=== PATIENT | female | born 1990 | race Caucasian/White ===

== ENCOUNTER 2021-03-12 01:16 | Inpatient (IN) ==
[2021-03-12] MEDS ORDERED: OXYTOCIN 30 UNITS/500 ML BAG IV PRN ×2 (02:20→08:16)
[2021-03-12] MEDS ORDERED: BUTORPHANOL TARTRATE 1 MG/ML VIAL IV ONE (02:28)
[2021-03-12] MEDS: LACTATED RINGER'S 1,000 ML IV PRN ×4 (02:58→19:37)
[2021-03-12 03:05] LABS: Hematocrit (blood only) 39.8 % (37-47); Hemoglobin 13.8 g/dL (12.0-16.0); Mean Corpuscular Hemoglobin 30.9 pg (25-34); Mean Corpuscular Hgb Conc 34.7 g/dL (32-36); Mean Platelet Volume 10.2 fL (7.4-10.4); Platelet Count 217 K/uL (130-400); RDW Coefficient of Variation 13.2 % (11.5-14.5); RDW Standard Deviation 42.4 fL (36.4-46.3); Red Blood Count 4.47 M/uL (4.2-5.4); White Blood Count 16.92 K/uL (4.8-10.8)
[2021-03-12] MEDS ORDERED: SODIUM CHLORIDE 0.9% INJ 10 ML VIAL ONE (03:46)
[2021-03-12] MEDS ORDERED: ePHEDrine sulfate 50 MG/ML AMP ONE (03:46)
[2021-03-12] MEDS ORDERED: BUPIVACAINE 0.25% 30 ML VIAL ONE (03:46)
[2021-03-12] MEDS ORDERED: fentaNYL citrate 100 MCG/2 ML VIAL ONE (03:46)
[2021-03-12] MEDS ORDERED: fentaNYL 2MCG/ML ROPIVACAINE 1.25MG/ML 100 ML BAG EPI ONE (03:47)
--- NOTE | 2021-03-12 03:57 | Anesthesiology Consultation ---
Date of Service March 12, 2021 Assessment & Plan (1) Encounter for pre-operative examination: Chart Review Chart Review: Acceptable Risk for Labor Epidural History Height/Weight Height: 5 ft 1 in Weight: 77.111 kg Allergies Allergy/AdvReac Type Severity Reaction Status Date / Time No Known Allergies Allergy Verified 02/28/21 19:33 Medications Home Medications Medication Instructions Recorded Confirmed Last Taken fluoxetine 20 mg capsule (Prozac) 20 mg PO DAILY 02/28/21 02/28/21 02/28/21 08:00 loratadine 10 mg tablet (Claritin) 10 mg PO DAILY 02/28/21 02/28/21 02/28/21 08:00 prenat.vits,maria guadalupe,[id number] 1 tab PO DAILY 02/28/21 02/28/21 02/27/21 20:00 Active Medications Generic Name Dose Route Start Last Admin Trade Name Freq PRN Reason Stop Dose Admin Lactated Ringer's 1,000 mls @ 125 mls/hr 03/12/21 02:20 03/12/21 02:58 Lr IV 03/14/21 02:19 999 mls/hr .Q8H PRN Administration L&D Protocol Protocol Past Medical History Medical History No significant active problems Social History Smoking Status: Current every day smoker tobacco type: cigarettes Do You Dip or Chew Tobacco: No Hx Alcohol Use: No Hx Substance Use: No substance use type: does not use Physical Exam Vital Signs Last Vital Signs Temp 36.5 C 03/12/21 01:42 EST Pulse 83 03/12/21 03:52 Resp 18 03/12/21 01:42 EST BP 127/70 03/12/21 03:37 Pulse Ox 100 03/12/21 03:52 Testing Laboratory Results 03/12/21 02:56
[2021-03-12] MEDS ORDERED: ePHEDrine sulfate 50 MG/ML AMP IV PRN ×2 (04:30→20:50)
[2021-03-12] MEDS ORDERED: ONDANSETRON INJ 2 MG/ML 2 ML VIAL IV PRN ×2 (04:30→20:50)
[2021-03-12] MEDS ORDERED: fentaNYL 2MCG/ML ROPIVACAINE 1.25MG/ML 100 ML BAG EPI PRN (04:30)
[2021-03-12] MEDS ORDERED: NALOXONE HCL 0.4 MG/1 ML VIAL/CARP IV PRN ×2 (04:30→20:50)
[2021-03-12] MEDS ORDERED: NALOXONE HCL 1 MG in SODIUM CHLORIDE 0.9% 1000ML 1,000 ML IV PRN ×2 (04:30→20:50)
[2021-03-12] MEDS ORDERED: cefOXitin 2,000 MG in DEXTROSE 5% 50 ML IV SCH (19:45)
[2021-03-12] MEDS ORDERED: CITRIC ACID/SODIUM CITRATE 15 ML UDC PO SCH (19:45)
--- NOTE | 2021-03-12 19:51 | History and Physical Report ---
DATE OF NOTE: 03/12/2021. CHIEF COMPLAINT: Arrest of labor. HISTORY OF PRESENT ILLNESS: The patient is a 30-year-old 1, para 0, due date 03/12/2021. Jimmie cunningham had an uneventful course, had her membranes stripped in the office to induce labor, went i nto spontaneous labor. Came in at about 3 in the morning and 5 cm dilated with contractions every 2- 3 minutes. She was given IV Stadol and then she received epidural anesthesia from which she got good pain relief. She had a good labor pattern and was augmented with IV Pitocin. She went to full dilat ation, pushed for 2-1/2 hours and basically was unable to get the head into the mid pelvis. She had a mid pelvis transverse arrest and was given a diagnosis of cephalopelvic disproportion scheduled for primary section. PAST MEDICAL HISTORY: No known drug allergies. PAST SURGICAL HISTORY: She had wisdom teeth removed. MEDICAL HISTORY: No history of rheumatic fever, heart disease, heart murmur, diabetes, tuberculosis. SOCIAL HISTORY: No smoking, no alcohol intake. Works from home. FAMILY HISTORY: Mom is 51. Dad's 52, both in good health. Half-brother and half-sister in good hea lth. REVIEW OF SYSTEMS: HEAD: No symptoms of frequent or severe headaches. EYES: No symptoms of blurred vision, double vision. EARS: No symptoms of frequent ear infection or difficulty hearing. PHYSICAL EXAMINATION: GENERAL: Well-developed, well-nourished 30-year-old white female. Alert, oriented x3, and cooperati ve in no acute distress, appeared her stated age. EYES: Conjunctivae are pink. Sclerae white, no evidence of jaundice. ENT: Ears had normal light reflex bilaterally. Nose had normal mucosa. Septum is midline. There w ere no polyps. THROAT: No erythema or evidence of infection. Teeth are in good state of repair. HEAD: Normocephalic, normal distribution of hair. NECK: Supple. Trachea midline. Thyroid is not enlarged. There is no adenopathy appreciated. Both carotids are of good intensity. CHEST: Clear to auscultation and percussion. No wheezes, rales or rhonchi appreciated. BREAST: Normal. HEART: Had regular rhythm LUNGS: Clear to auscultation and percussion. ABDOMEN: Revealed a vertex presentation and abdominal size suggested a weight of 8 pounds. There wa s no CVA tenderness, no calf tenderness. PELVIC: Large amount of molding, occiput transverse position, -2 station. IMPRESSION OF THIS CASE: Status post removal of wisdom teeth and arrest of labor secondary cephalope lvic disproportion. Job ID: [id number]
[2021-03-12] MEDS ORDERED: MoRPHine SULFATE PF 1 MG/ML 10 ML AMP/VIAL ONE (20:20)
[2021-03-12] MEDS ORDERED: PROPOFOL IV EMULSION 10 MG/ML 20 ML VIAL IV ONE (20:23)
[2021-03-12] MEDS ORDERED: ONDANSETRON INJ 2 MG/ML 2 ML VIAL ONE (20:23)
[2021-03-12] MEDS ORDERED: METOCLOPRAMIDE HCL INJ 5 MG/ML 2 ML VIAL ONE (20:23)
[2021-03-12] MEDS ORDERED: OXYTOCIN 10 UNITS/ML VIAL ONE (20:23)
[2021-03-12] MEDS ORDERED: LIDOCAINE 2%/EPINEPHRINE 1:200,000 20 ML SDV ONE (20:28)
[2021-03-12] MEDS ORDERED: METHYLERGONOVINE MALEATE 0.2 MG/ML AMP ONE (20:40)
[2021-03-12] MEDS ORDERED: diphenhydrAMINE 50 MG/ML VIAL IV PRN (20:50)
[2021-03-12] MEDS ORDERED: PROMETHAZINE HCL 12.5 MG in SODIUM CHLORIDE 0.9% 50 ML IV PRN (20:50)
[2021-03-12] MEDS ORDERED: NALOXONE HCL 0.08 MG in SYRINGE 1.8 ML IV PRN (20:50)
[2021-03-12] MEDS ORDERED: NALBUPHINE HCL INJ 10 MG/ML AMP IV PRN (20:50)
[2021-03-12] MEDS ORDERED: MoRPHine SULFATE 2 MG/ML CARP IV PRN (20:50)
[2021-03-12] MEDS ORDERED: MoRPHine SULFATE PF 1 MG/ML 10 ML AMP/VIAL EPI ONE (20:50)
[2021-03-12] MEDS ORDERED: LACTATED RINGER'S 500 ML IV PRN (20:50)
[2021-03-12] MEDS ORDERED: NO NARCOTICS OR SEDATIVES SCH (21:00)
[2021-03-12] MEDS ORDERED: SODIUM CHLORIDE 0.9% 1000ML 1,000 ML IV SCH (21:00)
[2021-03-12] MEDS ORDERED: DC INTRASPINAL MORPHINE SCH (21:00)
--- NOTE | 2021-03-12 21:13 | Anesthesia Procedure Note ---
Date of Service March 12, 2021 Anesthesia Post Epidural Note Vital Signs Vital Signs: Temp Pulse Resp BP Pulse Ox 37 C 92 H 22 136/78 99 03/12/21 18:30 03/12/21 20:01 03/12/21 18:45 03/12/21 20:01 03/12/21 19:32 Pain Intensity Lower Back: Pain Intensity: 3 Notes Mental Status: alert / awake / arousable and participated in evaluation Nausea / Vomiting: adequately controlled Pain: adequately controlled Airway Patency, RR, SpO2: stable & adequate BP & HR: stable & adequate Hydration State: stable & adequate Neuraxial Anesthesia: was administered and sensory block is resolving Anesthetic Complications: no major complications apparent Epidural: Removed without complications and With tip intact
[2021-03-12] MEDS ORDERED: MAGNESIUM HYDROXIDE SUSP 30 ML UDC PO PRN (21:14)
[2021-03-12] MEDS ORDERED: DIPHTHERIA/TETANUS/PERTUSSIS 0.5 ML SYR/VIAL IM ONE (21:14)
[2021-03-12] MEDS ORDERED: SENNA 8.6 MG TAB PO PRN (21:14)
[2021-03-12] MEDS ORDERED: HYDROCORTISONE ACETATE 25 MG SUPP PR PRN (21:14)
[2021-03-12] MEDS ORDERED: SUPERCREAM 0.870% 15 GM JAR EXT PRN (21:14)
[2021-03-12] MEDS ORDERED: BENZOCAINE 20% AER SPR 82.5 GM CAN EXT PRN (21:14)
--- NOTE | 2021-03-12 21:14 | Post Operative Brief Note ---
Immediate Post Op Note v1 Date of Surgery March 12, 2021 Pre & Post Diagnosis Operation Date: 03/12/21 20:00 Pre-Op Diagnosis: 40 week term in Labor CPD Failure to descend Post-Op Diagnosis: same as above I identified the patient and participated in the time-out.: Yes Procedure Operation Date: 03/12/21 20:00 Actual Procedures p Section in LD(Not Applicable) - Clayton Uriostegui MD Surgeon Clayton Uriostegui MD Electrical Assistant Dr Pugh Estimated Blood Loss 600 Findings Consistent with Post-Op Diagnosis Drains Castellon Catheter (draining light bloody urine during the procedure) Anesthesia Type L&D Only Epidural Exists Complications none
[2021-03-12] MEDS ORDERED: LACTATED RINGER'S 1,000 ML IV SCH (21:15)
[2021-03-12] MEDS ORDERED: OXYTOCIN 20 UNITS in LACTATED RINGER'S 1,000 ML IV SCH (23:45)
[2021-03-12] MEDS: KETOROLAC 30 MG/ML VIAL IV PRN (23:49)
--- NOTE | 2021-03-13 06:46 | Anesthesiology Progress Note ---
Date of Service March 13, 2021 Anesthesia Post Procedure Vital Signs Vital Signs: Temp Pulse Pulse Resp BP BP Pulse Ox 03/13/21 06:00 24 97 03/13/21 05:00 22 96 03/13/21 04:00 36.7 C 94 H 20 112/68 96 03/13/21 02:45 81 20 112/75 95 03/13/21 01:45 93 H 94 H 105/69 94 03/13/21 00:45 20 96 03/13/21 00:40 90 20 131/73 96 03/12/21 23:45 37.1 C 88 20 118/77 97 03/12/21 23:29 85 125/60 03/12/21 23:28 86 97 03/12/21 23:25 18 03/12/21 23:23 85 96 03/12/21 23:19 88 122/58 L 03/12/21 23:18 86 97 03/12/21 23:13 89 97 03/12/21 23:09 82 122/59 L 03/12/21 23:08 85 97 03/12/21 23:03 84 97 03/12/21 22:59 81 121/66 03/12/21 22:58 83 98 03/12/21 22:55 18 03/12/21 22:53 81 99 03/12/21 22:49 82 119/63 03/12/21 22:48 85 99 03/12/21 22:43 92 H 99 03/12/21 22:39 85 122/57 L 03/12/21 22:38 89 99 03/12/21 22:33 87 98 03/12/21 22:29 83 115/61 03/12/21 22:28 86 99 03/12/21 22:25 37.2 C 18 03/12/21 22:23 97 H 99 03/12/21 22:20 88 129/59 L 03/12/21 22:18 89 99 03/12/21 22:15 18 03/12/21 22:12 82 96 03/12/21 22:10 18 03/12/21 22:07 91 H 96 03/12/21 22:05 18 03/12/21 22:03 80 94 03/12/21 22:02 81 95 03/12/21 21:59 82 109/56 L 03/12/21 21:57 85 96 03/12/21 21:55 18 03/12/21 21:52 85 96 03/12/21 21:49 85 123/58 L 03/12/21 21:47 89 98 03/12/21 21:45 18 03/12/21 21:43 93 H 93 03/12/21 21:42 86 96 03/12/21 21:38 82 116/59 L 03/12/21 21:37 83 96 03/12/21 21:35 18 03/12/21 21:33 84 118/60 03/12/21 21:32 89 98 03/12/21 21:27 90 97 03/12/21 21:25 36.8 C 18 03/12/21 21:23 83 118/56 L 03/12/21 21:22 86 132/58 L 98 03/12/21 21:17 94 H 98 03/12/21 20:01 92 H 136/78 03/12/21 19:55 90 136/84 03/12/21 19:44 92 H 129/78 03/12/21 19:32 106 H 99 03/12/21 19:27 113 H 100 03/12/21 19:23 98 H 92 03/12/21 19:22 96 H 99 03/12/21 19:17 96 H 100 03/12/21 19:14 91 H 149/66 H 03/12/21 19:12 103 H 98 03/12/21 19:07 91 H 100 03/12/21 19:02 97 H 100 03/12/21 19:00 83 131/85 03/12/21 18:57 97 H 100 03/12/21 18:52 90 100 03/12/21 18:47 92 H 100 03/12/21 18:45 97 H 22 126/87 03/12/21 18:44 105 H 91 03/12/21 18:42 89 100 03/12/21 18:37 93 H 99 03/12/21 18:32 95 H 100 03/12/21 18:30 37 C 93 H 20 143/65 H 03/12/21 18:27 97 H 100 03/12/21 18:22 95 H 100 03/12/21 18:17 93 H 100 03/12/21 18:16 95 H 144/64 H 03/12/21 18:15 90 191/123 H 03/12/21 18:12 95 H 100 03/12/21 18:09 98 H 87 L 03/12/21 18:07 87 100 03/12/21 18:03 97 H 88 L 03/12/21 18:02 95 H 100 03/12/21 17:59 96 H 137/65 03/12/21 17:57 106 H 100 03/12/21 17:51 108 H 100 03/12/21 17:49 100 H 86 L 03/12/21 17:46 97 H 100 03/12/21 17:43 129 H 146/81 H 03/12/21 17:41 98 H 100 03/12/21 17:40 93 H 83 L 03/12/21 17:35 95 H 100 03/12/21 17:33 101 H 86 L 03/12/21 17:30 92 H 100 03/12/21 17:25 92 H 100 03/12/21 17:20 86 99 03/12/21 17:15 93 H 99 03/12/21 17:10 95 H 99 03/12/21 17:06 105 H 90 03/12/21 17:05 97 H 100 03/12/21 17:00 105 H 98 03/12/21 16:59 99 H 140/71 03/12/21 16:55 94 H 100 03/12/21 16:50 101 H 99 03/12/21 16:45 95 H 97 03/12/21 16:44 96 H 136/81 03/12/21 16:40 98 H 99 03/12/21 16:35 94 H 99 03/12/21 16:30 104 H 100 03/12/21 16:28 37.2 C 93 H 20 135/84 03/12/21 16:25 99 H 99 03/12/21 16:20 106 H 100 03/12/21 16:15 101 H 100 03/12/21 16:14 93 H 135/87 03/12/21 16:10 91 H 100 03/12/21 16:05 115 H 100 03/12/21 16:00 101 H 100 03/12/21 15:59 100 H 137/87 03/12/21 15:55 97 H 100 03/12/21 15:50 97 H 100 03/12/21 15:45 109 H 97 03/12/21 15:43 92 H 131/73 03/12/21 15:40 94 H 99 03/12/21 15:35 91 H 100 03/12/21 15:30 87 100 03/12/21 15:29 93 H 127/65 03/12/21 15:25 91 H 100 03/12/21 15:20 88 100 03/12/21 15:15 99 H 100 03/12/21 15:13 101 H 146/82 H 03/12/21 15:10 101 H 100 03/12/21 15:05 96 H 100 03/12/21 15:00 37.2 C 128 H 20 132/58 L 100 03/12/21 14:55 90 100 03/12/21 14:50 89 100 03/12/21 14:45 97 H 132/90 99 03/12/21 14:40 98 H 97 03/12/21 14:35 103 H 97 03/12/21 14:30 104 H 97 03/12/21 14:29 98 H 129/78 03/12/21 14:25 98 H 98 03/12/21 14:20 94 H 97 03/12/21 14:15 94 H 97 03/12/21 14:13 98 H 127/75 03/12/21 14:10 99 H 97 03/12/21 14:05 99 H 98 03/12/21 14:00 93 H 99 03/12/21 13:58 37.1 C 92 H 20 128/78 03/12/21 13:55 86 99 03/12/21 13:50 87 100 03/12/21 13:45 90 100 03/12/21 13:44 93 H 138/72 03/12/21 13:40 87 100 03/12/21 13:35 99 H 100 03/12/21 13:30 113 H 100 03/12/21 13:29 141 H 149/79 H 03/12/21 13:25 90 100 03/12/21 13:20 96 H 100 03/12/21 13:15 91 H 99 03/12/21 13:14 81 120/82 03/12/21 13:10 82 100 03/12/21 13:05 83 100 03/12/21 13:00 84 98 03/12/21 12:59 36.9 C 81 20 136/73 03/12/21 12:55 83 98 03/12/21 12:50 86 99 03/12/21 12:45 80 140/73 100 03/12/21 12:40 83 100 03/12/21 12:35 84 100 03/12/21 12:30 85 100 03/12/21 12:29 85 138/85 03/12/21 12:25 84 100 03/12/21 12:21 82 130/89 03/12/21 12:20 80 100 03/12/21 12:15 80 98 03/12/21 12:10 85 98 03/12/21 12:05 85 98 03/12/21 12:00 81 99 03/12/21 11:58 83 129/80 03/12/21 11:55 81 100 03/12/21 11:50 86 100 03/12/21 11:45 83 100 03/12/21 11:44 82 129/83 03/12/21 11:40 84 100 03/12/21 11:35 85 100 03/12/21 11:30 84 100 03/12/21 11:29 85 133/84 03/12/21 11:25 90 99 03/12/21 11:20 86 99 03/12/21 11:15 84 100 03/12/21 11:13 37.2 C 88 20 131/84 03/12/21 11:10 84 100 03/12/21 11:05 105 H 99 03/12/21 11:00 81 99 03/12/21 10:59 87 126/84 03/12/21 10:55 85 100 03/12/21 10:50 95 H 100 03/12/21 10:45 82 100 03/12/21 10:43 84 133/77 03/12/21 10:40 85 100 03/12/21 10:35 87 100 03/12/21 10:30 85 100 03/12/21 10:29 85 132/83 03/12/21 10:25 85 100 03/12/21 10:20 85 100 03/12/21 10:15 90 100 03/12/21 10:13 36.7 C 87 20 127/78 03/12/21 10:10 88 100 03/12/21 10:05 98 H 100 03/12/21 10:00 93 H 100 03/12/21 09:58 82 128/73 03/12/21 09:55 85 100 03/12/21 09:53 95 H 87 L 03/12/21 09:48 84 98 03/12/21 09:44 86 142/80 H 03/12/21 09:43 88 97 03/12/21 09:38 82 96 03/12/21 09:33 83 96 03/12/21 09:28 81 133/77 96 03/12/21 09:23 83 96 03/12/21 09:18 82 95 03/12/21 09:14 80 130/78 03/12/21 09:13 82 96 03/12/21 09:08 84 96 03/12/21 09:03 82 96 03/12/21 08:58 84 132/71 96 03/12/21 08:53 82 96 03/12/21 08:48 84 96 03/12/21 08:43 82 130/77 97 03/12/21 08:38 82 98 03/12/21 08:33 80 97 03/12/21 08:28 85 132/82 98 03/12/21 08:23 88 97 03/12/21 08:18 80 97 03/12/21 08:15 88 130/84 03/12/21 08:14 90 90 03/12/21 08:13 88 100 03/12/21 08:09 119 H 91 03/12/21 08:08 108 H 97 03/12/21 08:03 82 97 03/12/21 07:59 80 130/76 03/12/21 07:58 83 97 03/12/21 07:53 81 97 03/12/21 07:48 81 97 03/12/21 07:44 76 129/74 03/12/21 07:43 83 97 03/12/21 07:38 82 99 03/12/21 07:33 81 97 03/12/21 07:29 36.5 C 79 20 130/82 03/12/21 07:28 79 98 03/12/21 07:23 87 97 03/12/21 07:18 88 99 03/12/21 07:17 88 90 03/12/21 07:13 90 132/87 100 03/12/21 07:08 85 100 03/12/21 07:03 80 100 03/12/21 06:59 81 130/74 03/12/21 06:58 82 100 03/12/21 06:53 80 100 03/12/21 06:48 81 100 Pain Intensity Lower Back: Pain Intensity: 3 Lower Abdomen: Pain Intensity: 6 Transfer of Care Handoff Completed per policy Notes Mental Status: alert / awake / arousable Patient Amnestic to Procedure: Yes Nausea / Vomiting: adequately controlled Pain: adequately controlled Airway Patency, RR, SpO2: stable & adequate BP & HR: stable & adequate Hydration State: stable & adequate Anesthetic Complications: no major complications apparent
[2021-03-13 06:51] LABS: Basophils # (auto) 0.02 K/uL (0-0.2); Basophils % (auto) 0.1 %; Eosinophils # (auto) 0.11 K/uL (0-0.5); Eosinophils % (auto) 0.5 %; Hematocrit (blood only) 32.3 % (37-47); Hemoglobin 11.2 g/dL (12.0-16.0); Immature Granulocytes # (auto) 0.05 K/uL (0.00-0.02); Immature Granulocytes % (auto) 0.2 %; Lymphocytes # (auto) 1.34 K/uL (1.2-3.4); Lymphocytes % (auto) 6.6 %; Mean Corpuscular Hemoglobin 30.9 pg (25-34); Mean Corpuscular Hgb Conc 34.7 g/dL (32-36); Mean Platelet Volume 10.2 fL (7.4-10.4); Monocytes # (auto) 1.66 K/uL (0.11-0.59); Monocytes % (auto) 8.2 %; Neutrophils # (auto) 17.16 K/uL (1.4-6.5); Neutrophils % (auto) 84.4 %; Platelet Count 180 K/uL (130-400); RDW Coefficient of Variation 13.2 % (11.5-14.5); RDW Standard Deviation 43.3 fL (36.4-46.3); Red Blood Count 3.63 M/uL (4.2-5.4); White Blood Count 20.34 K/uL (4.8-10.8)
[2021-03-13] MEDS: KETOROLAC 30 MG/ML VIAL IV PRN ×2 (07:10→13:20)
[2021-03-13] MEDS: DOCUSATE SODIUM 100 MG CAP PO SCH ×2 (07:52→21:23)
[2021-03-13] MEDS: FERROUS SULFATE 325 MG TAB PO SCH (07:53)
[2021-03-13] MEDS: PRENATAL VITAMIN 1 TAB PO SCH (07:53)
[2021-03-13] MEDS: SIMETHICONE 80 MG CHEW PO SCH ×4 (07:54→21:23)
--- NOTE | 2021-03-13 08:58 | Operative Report (OR) ---
DATE OF PROCEDURE: 03/12/2021 PROCEDURE: Primary section. INDICATIONS FOR SURGERY: Arrest of labor. PREOPERATIVE DIAGNOSES: Cephalopelvic disproportion, term . POSTOPERATIVE DIAGNOSES: Cephalopelvic disproportion, term , delivered live infant. SURGEON: Jane Uriostegui MD. HORTICULTURE WORKER: Sanjay Pugh MD. ESTIMATED BLOOD LOSS: 600 mL. ANESTHESIA: Epidural. OPERATIVE FINDINGS AND PROCEDURE: The patient was brought to the OR table, correctly identified by a rmband and conversation. Compression stockings were applied. Castellon catheter was inserted asepticall y in the bladder, connected to gravity drainage. The epidural was topped off. Lower abdomen was pain maryse with an alcohol based sterilizing solution, it was allowed to dry for 3 minutes and draped in the usual sterile fashion. Following this, the adequacy of the anesthesia was checked and found to be g ood. A Pfannenstiel incision was made and carried down to the anterior fascia by sharp dissection. Hemost asis was secured by electrocauterization. Fascia was incised transversely the underlying muscle by blunt and sharp dissection. Recti muscles were in the midline. The bladder was high with the head low in the pelvis. An incision was made above the vesicouterine fold. Bladder wa s undermined bluntly, pushed out of the operative field. Lower uterine segment was scored with a kni fe and entered with the scissors. Some mildly stained amniotic fluid was noted. The dampener operator's hand was inserted into the pelvis and the head was delivered without difficulty. Body was then delivered without difficulty. Cord was stripped, cut and attended to by the excel expert who was scrubbed and present at the time of delivery. Cord blood was taken. Placenta was removed manually. Uterus, tubes, and ovaries were brought out through the incision. Uterine cavity was cleansed with a clean sponge. Uterus was injected with 10 mL of Pitocin. The lower uterine segment was identified w ith 4 ring forceps and a heavy duty chromic was used to approximate the muscular layer and create goo d hemostasis. After the approximation of the uterine muscular layer, the fascial layer was approxima maryse over this second layer with a heavy Vicryl and the fascial layer was approximated and covered the muscular layer. Hemostasis was excellent. The peritoneal edges were restored with a 3-0 chromic an d this restored the integrity of the vesicouterine fold. Pelvis was cleansed of all blood clots and debris. Uterus, tubes, and ovaries were inspected and fou nd to be normal, reinserted into the abdominal cavity. Careful anatomical approximation of the anter ior abdominal wall was performed. The perineum was closed with a mattress suture of chromic catgut. Recti muscles were approximated with interrupted [id number] suture chromic catgut. Fascia was closed with continuous interlocking suture of Vicryl on each side and tied in the midline. Subcutane ous was approximated with a running plain and skin edges were approximated with staple clips. Job ID: [id number]
[2021-03-13] MEDS ORDERED: ONDANSETRON INJ 2 MG/ML 2 ML VIAL IV PRN (14:50)
[2021-03-13] MEDS ORDERED: diphenhydrAMINE Capsule 25 MG CAP PO PRN (14:50)
[2021-03-13] MEDS ORDERED: ZOLPIDEM TARTRATE 5 MG TAB PO PRN (14:50)
[2021-03-13] MEDS ORDERED: KETOROLAC 30 MG/ML VIAL IV PRN (14:50)
[2021-03-13] MEDS ORDERED: PROMETHAZINE HCL 25 MG in SODIUM CHLORIDE 0.9% 50 ML IV PRN (14:50)
[2021-03-13] MEDS ORDERED: diphenhydrAMINE 50 MG/ML VIAL IV PRN (14:50)
[2021-03-13] MEDS ORDERED: MEPERIDINE HCL 50 MG/ML CARP IV PRN (14:50)
--- NOTE | 2021-03-13 17:22 | Obstetrical Progress Note ---
Date of Service March 13, 2021 Assessment & Plan Admission and Anticipated Discharge Date Admission Date: March 12, 2021 Subjective abdomen soft and non tender ambulating well incision is clean and dry passing flatus no calf tenderness vaginal bleeding scant hgb 11.2 Results & Data ([facility]) Vital Signs (Past 12 Hours) Vital Signs Temp Pulse Resp BP Pulse Ox 03/13/21 12:14 37.3 C 98 H 17 107/71 97 03/13/21 12:00 22 99 03/13/21 11:00 18 98 03/13/21 10:00 19 99 03/13/21 09:00 21 100 03/13/21 07:55 36.8 C 88 21 108/72 99 03/13/21 06:00 24 97
[2021-03-13] MEDS: IBUPROFEN 600 MG TAB PO PRN ×2 (18:32→22:48)
[2021-03-13] MEDS: oxyCODONE/ACETAMINOPHEN 5mg/325mg TAB PO PRN ×2 (18:32→22:48)
[2021-03-13] MEDS ORDERED: bisacodyL 5 MG TABEC PO SCH (20:00)
[2021-03-14] MEDS: IBUPROFEN 600 MG TAB PO PRN ×2 (04:27→07:51)
[2021-03-14] MEDS: oxyCODONE/ACETAMINOPHEN 5mg/325mg TAB PO PRN ×2 (04:27→07:52)
[2021-03-14 06:11] LABS: Hematocrit (blood only) 28.3 % (37-47); Hemoglobin 9.7 g/dL (12.0-16.0)
[2021-03-14] MEDS: DOCUSATE SODIUM 100 MG CAP PO SCH (07:51)
[2021-03-14] MEDS: PRENATAL VITAMIN 1 TAB PO SCH (07:51)
[2021-03-14] MEDS: FERROUS SULFATE 325 MG TAB PO SCH (07:51)
[2021-03-14] MEDS: SIMETHICONE 80 MG CHEW PO SCH (07:51)
--- NOTE | 2021-03-14 08:27 | Obstetrical Progress Note ---
Date of Service March 14, 2021 Assessment & Plan Admission and Anticipated Discharge Date Admission Date: March 12, 2021 Subjective abdomen soft and non tender incision is clean and dry no calf tenderness ambulating well vaginal bleeding scant hgb 9.7 patient requests discharge Results & Data ([facility]) Vital Signs (Past 12 Hours) Vital Signs Temp Pulse Resp BP Pulse Ox 03/13/21 23:00 36.4 C L 93 H 20 121/75 98
--- NOTE | 2021-03-14 12:23 | Discharge Summary (DS) ---
Mrs. Melgar was followed in our office for care and delivery. At this point, she is a gr avida 1, para 1. She had an uneventful course. Her membranes were stripped in the office s o that she would go into labor. She came in active labor on her due date. She was 5 cm on admission and about an hour after admission she was given epidural for pain control. Following this, she was augmented with IV Pitocin. She basically went to full dilatation. She pushed for about 3 hours and then had a transverse mid pelvic arrest secondary to cephalopelvic disproportion. She underwent prim joss low segment section. Estimated blood loss at that time was 600 mL. She did well postop eratively. She did receive prophylactic antibiotics. Her preoperative hemoglobin was 13.8. Postope ratively, hemoglobin dropped to 9.7. At the time of discharge, she was ambulating well, eating well. She was afebrile. Vaginal bleeding was minimal. She was given the usual instructions to call the office if she had a temperature over 100, call if she has any heavy bleeding, and to return in the of [facility] in one week for removal of nupur. Job ID: [id number]
[2021-03-14] MEDS ORDERED: bisacodyL 10 MG SUPP PR PRN (21:14)
== END 2021-03-14 11:20 | disposition home or self-care (01) | DRG 788 ==
LOC: OPB 01:16 → 4S1 01:22 → 4S2 03-13 00:24

== ENCOUNTER 2023-01-02 05:28 | Inpatient (IN) ==
--- NOTE | 2022-12-26 07:36 | History & Physical Report ---
Date of Service December 26, 2022 Assessment & Plan (1) Cephalopelvic disproportion due to generally contracted pelvis: Plan Plan is a repeat section. History of Present Illness Chief Complaint: Intrauterine at 39+ weeks gestation. Repeat section. Primary Care Provider: Rekha Raman PA-C Patient is a 32-year-old 2 para 1. She is in good general health. She is on Prozac 20 mg for anxiety and depression. has been well dated with a first trimester ultrasound. Her due date is 01/08/2003. Her first resulted in a section in 2020 at the time of delivery she was fully dilated and pushed for over 3 hours. The head did not descend into the pelvis. She was given a diagnosis of cephalopelvic disproportion. She delivered a male 7 pounds 8 ounces at that time. She is presently being scheduled for repeat section. With a diagnosis of cephalopelvic disproportion. Allergies Allergy/AdvReac Type Severity Reaction Status Date / Time No Known Allergies Allergy Verified 06/08/22 15:11 Home Medications Medication Instructions Recorded Confirmed Type fluoxetine 20 mg capsule (Prozac) 20 mg PO DAILY 02/28/21 03/12/21 History prenat.vits,maria guadalupe,[id number] 1 tab PO DAILY 02/28/21 03/12/21 History ibuprofen 200 mg tablet (Motrin IB) 600 mg PO Q6H PRN pain #60 tabs 03/14/21 Rx oxycodone-acetaminophen 5 mg-325 1 tab PO Q6H PRN pain #40 tabs 03/14/21 Rx mg tablet (Percocet) Past Med/Surg History Medical History Asthma No significant active problems Surgical History [place] teeth removed Social History Smoking Status: Current every day smoker Tobacco Type: Cigarettes Second Hand Exposure: No; Do You Dip or Chew Tobacco: No; Hx Alcohol Use: No Hx Substance Use: No Preferred Language: Greek Communication Ability: Effective Vocational Rehabilitation Supervisor Required: No Beliefs That Will Affect Care: None marital status: Single Current Living Situation: Family and Significant Other Current Living Situation Comment: FOB and step son Feels Safe at Home: Yes Assistive Devices: Glasses Physical Exam Physical Exam: Patient is a well-developed well-nourished 32-year-old white female alert oriented x3 in no acute distress. Trachea is midline there is no cervical adenopathy. Teeth are in a good state of repair. Normal light reflex bilaterally. Heart had a regular rhythm S1 and S2 were normal. Lungs were clear to auscultation and percussion. Abdomen was soft and nontender. Abdominal size was consistent with a term size fetus. There was a well-healed Pfannenstiel incisional scar. There was no CVA tenderness. No calf tenderness. Pelvic exam revealed a vertex presentation. The vertex was floating. Cervix was posterior firm and closed. Results & Data Results & Data Diagnostic Findings Cephalopelvic disproportion. Intrauterine at 39 weeks gestation.
--- NOTE | 2022-12-26 10:36 | Anesthesiology Consultation ---
Date of Service December 26, 2022 Assessment & Plan (1) Encounter for pre-operative examination: Infectious disease screening: Per assessment on 12/26/22: No known infectious disease contacts or current infectious disease symptoms. Chart Review Chart Review: data entry analyst initiated History Surgery Operation Date: 01/02/23 07:30 Proposed Procedures p Repeat Section - Clayton Uriostegui MD Height/Weight Height: 5 ft 1 in Weight: 87.997 kg Allergies Allergy/AdvReac Type Severity Reaction Status Date / Time No Known Allergies Allergy Verified 12/26/22 09:34 Medications Home Medications Medication Instructions Recorded Confirmed Last Taken fluoxetine 20 mg capsule (Prozac) 20 mg PO QAM 02/28/21 12/26/22 03/11/21 08:00 prenat.vits,maria guadalupe,[id number] 1 tab PO HS 02/28/21 12/26/22 03/11/21 08:00 Past Medical History Medical History Anxiety Asthma "since outgrown" No recent issues Depression Past Family History Family History Other No family history of adverse response to anesthesia Past Surgical History Surgical History History of anesthesia reaction Emergency c/s (2020, [facility]) after labor for about 2.5 - 3 hours, patient reports having "shakes" for hours post-op. No major complications per post-op anesthesia progress note. No significant post-op issues noted in discharge summary. History of section [place] teeth removed Social History Smoking Status: Former smoker tobacco type: cigarettes Do You Dip or Chew Tobacco: No Smoking End Date: Hx Alcohol Use: No Hx Substance Use: No substance use type: does not use Lab Results Anesthesia Preop Results Results Anesthesia Widget: WBC 10.32 K/ul (4.8-10.8) 12/21/22 Hgb 13.3 g/dl (12.0-16.0) 12/21/22 Hct 38.9 % (37.0-47.0) 12/21/22 Plt 162 K/uL (130-400) 12/21/22 Na 137 mmol/L (136-145) 12/21/22 K 3.7 mmol/L (3.5-5.1) 12/21/22 Cl 108 mmol/L (98-107) H 12/21/22 CO2 22 mmol/L (21-32) 12/21/22 BUN 6 mg/dl (6-23) 12/21/22 Creat 0.40 mg/dl (0.6-1.2) L 12/21/22 Glucose Level 108 mg/dl (70-99(Fasting)) H 12/21/22 PT 9.8 Seconds (9.0-12.0) 12/21/22 PTT 26.1 Seconds (21.0-31.0) 12/21/22 INR 0.9 (0.9-1.1) 12/21/22 Blood Type A Positive 12/21/22 Antibody Screen NEGATIVE 12/21/22
[~2023-01-02 05:28] MED LIST: LACTATED RINGER'S 1,000 ML IV SCH
[2023-01-02] MEDS ORDERED: CITRIC ACID/SODIUM CITRATE 15 ML UDC PO SCH (06:00)
[2023-01-02] MEDS ORDERED: ceFAZolin 2000MG 2,000 MG/15 ML SYR IV SCH (06:00)
[2023-01-02 06:05] LABS: Basophils # (auto) 0.03 K/uL (0.00-0.20); Basophils % (auto) 0.3 %; Eosinophils # (auto) 0.12 K/uL (0.00-0.50); Eosinophils % (auto) 1.2 %; Hematocrit (blood only) 39.5 % (37.0-47.0); Hemoglobin 13.6 g/dl (12.0-16.0); Immature Granulocytes # (auto) 0.11 K/uL (0.01-0.20); Immature Granulocytes % (auto) 1.1 %; Lymphocytes # (auto) 1.69 K/uL (1.20-3.40); Lymphocytes % (auto) 16.3 %; Mean Corpuscular Hemoglobin 30.8 pg (25.0-34.0); Mean Corpuscular Hgb Conc 34.4 g/dL (32.0-36.0); Mean Corpuscular Volume 89.4 fL (80.0-100.0); Mean Platelet Volume 10.9 fL (9.4-12.4); Monocytes # (auto) 0.94 K/uL (0.11-0.59); Neutrophils % (auto) 72.1 %; Platelet Count 170 K/uL (130-400); RDW Coefficient of Variation 13.4 % (11.5-14.5); Red Blood Count 4.42 M/uL (4.20-5.40); White Blood Count 10.39 K/ul (4.8-10.8)
[2023-01-02] MEDS ORDERED: SODIUM CHLORIDE 0.9% 250 ML IV PRN (06:14)
[2023-01-02 06:27] LABS: Alanine Aminotransferase 12 U/L (7-52); Albumin Globulin Ratio 1.1 (0.9-2); Albumin Level 3.2 gm/dl (3.4-5.0); Alkaline Phosphatase 157 U/L (34-104); Anion Gap 8 (3-11); Aspartate Aminotransferase 18 U/L (13-39); Bilirubin,Total 0.4 mg/dl (0.2-1.0); Blood Urea Nitrogen 12 mg/dl (6-23); Calcium 8.8 mg/dl (8.6-10.3); Carbon Dioxide 21 mmol/L (21-32); Chloride 108 mmol/L (98-107); Creatinine Clr Calc Pharmacy 171.2 ml/min; Est GFR (African American) > 150.0 ml/min; Est GFR (Non-African American) 130.7 ml/min; Globulin 2.8 gm/dl (2.5-4.0); Glucose 88 mg/dl (70-99(Fasting)); Sodium 137 mmol/L (136-145)
[2023-01-02] MEDS ORDERED: fentaNYL citrate PF 100 MCG/2 ML VIAL ONE (06:55)
[2023-01-02] MEDS ORDERED: MoRPHine SULFATE PF 1 MG/ML 10 ML AMP/VIAL ONE (06:56)
[2023-01-02] MEDS ORDERED: OXYTOCIN 10 UNITS/ML VIAL ONE (06:57)
--- NOTE | 2023-01-02 07:29 | History & Physical Bridge Note ---
Date of Service January 02, 2023 History & Physical Bridge Note I have examined the patient, reviewed the History & Physical and in the interval since the performance of the History & Physical I have noted the following changes of clinical significance: no changes noted
[2023-01-02] MEDS ORDERED: MoRPHine SULFATE PF 1 MG/ML 10 ML AMP/VIAL INT SPINAL ONE (07:58)
[2023-01-02] MEDS ORDERED: LACTATED RINGER'S 500 ML IV PRN (07:58)
[2023-01-02] MEDS ORDERED: MEPERIDINE HCL 25 MG/ML CARP/VIAL IV PRN (07:58)
[2023-01-02] MEDS ORDERED: ePHEDrine sulfate 50 MG/ML AMP IV PRN (07:58)
[2023-01-02] MEDS ORDERED: NALOXONE HCL 0.08 MG in SYRINGE 1.8 ML IV PRN (07:58)
[2023-01-02] MEDS ORDERED: NALBUPHINE HCL INJ 10 MG/ML AMP IV PRN (07:58)
[2023-01-02] MEDS ORDERED: ONDANSETRON INJ 2 MG/ML 2 ML VIAL IV PRN (07:58)
[2023-01-02] MEDS ORDERED: NALOXONE HCL 0.4 MG/1 ML VIAL/CARP IV PRN (07:58)
[2023-01-02] MEDS ORDERED: NALOXONE HCL 1 MG in SODIUM CHLORIDE 0.9% 1000ML 1,000 ML IV PRN (07:58)
[2023-01-02] MEDS ORDERED: diphenhydrAMINE 50 MG/ML VIAL IV PRN (07:58)
[2023-01-02] MEDS ORDERED: SODIUM CHLORIDE 0.9% 1000ML 1,000 ML IV SCH (08:00)
[2023-01-02] MEDS ORDERED: DC INTRASPINAL MORPHINE SCH (08:00)
[2023-01-02] MEDS ORDERED: NO NARCOTICS OR SEDATIVES SCH (08:00)
[2023-01-02] MEDS ORDERED: HYDROCORTISONE ACETATE 25 MG SUPP PR PRN (09:05)
[2023-01-02] MEDS ORDERED: MAGNESIUM HYDROXIDE SUSP 30 ML UDC PO PRN (09:05)
[2023-01-02] MEDS ORDERED: BENZOCAINE 20% SPRY 85 APPLN/85 GM CAN EXT PRN (09:05)
[2023-01-02] MEDS ORDERED: SENNA 8.6 MG TAB PO PRN (09:05)
[2023-01-02] MEDS ORDERED: DIPHTHERIA/TETANUS/PERTUSSIS Vaccine (Tdap, Age 7+yrs) 0.5mL SYR/VL IM ONE (09:05)
[2023-01-02] MEDS ORDERED: LACTATED RINGER'S 1,000 ML IV SCH (09:15)
[2023-01-02] MEDS ORDERED: D5W AND LACTATED RINGERS 1,000 ML IV SCH (09:15)
--- NOTE | 2023-01-02 09:19 | Operative Report ---
Post Operative Report Pre & Post Diagnosis Operation Date: 01/02/23 07:30 <No data on this case meets the specified criteria> I identified the patient and participated in the time-out.: Yes Procedure Operation Date: 01/02/23 07:30 <Repeat low segment section. Surgeon Clayton Uriostegui MD Magento Developer Thao Estimated Blood Loss 600 Findings Consistent with Post-Op Diagnosis term Specimens placenta Anesthesia Type Spinal Complications none Indications cephalopelvic disprotion Description of Procedure Patient was brought to the OR correctly identified by armband and conversation. Spinal anesthesia was administered. A Castellon catheter was inserted aseptically into the bladder and connected to gravity drainage. Compression stockings were applied. Lower abdomen was painted with an alcohol-based sterilizing solution. Patient was draped in usual sterile fashion. Level of the anesthesia was checked and found to be adequate. A Pfannenstiel incision was made through her previous scar. The incision was taken down to the anterior fascia by blunt and sharp dissection. The fascia was incised horizontally. Undermined and then cut laterally exposing the rectus muscle. Rectus muscles were in the midline. Peritoneum was carefully raised and entered. A bladder blade was used to retract the bladder out of the operative field. The lower uterine segment was scored with a knife and then entered with a scissors bluntly. Clear amniotic fluid could be seen coming through the lower uterine segment. A vectus retractor was applied to the 's head. With fundal pressure the infant was delivered. Infant was suctioned through the mouth and the nose. Cord was allowed to pulse for 1 full minute. was attended to by the acid dipper who is scrubbed and present at the time of the delivery. Placenta was removed manually. Uterus tubes and ovaries were brought out through the abdominal incision. Uterine cavity was cleansed with a clean sponge. The lower uterine defect was approximated anatomically. The muscular layer was approximated with a heavy chromic gut suture. The fascial layer was approximated over this with a horizontally placed suture of heavy Vicryl with about 2 interrupted ujlqza-ez-habxi sutures of Vicryl to complete the approximation. The peritoneal edges were then restored with a running 3-0 Chromic Gut suture. This restored the integrity of the vesicouterine fold. Uterus tubes and ovaries were inspected and found to be normal. Pelvis was cleansed of all blood clots and debris. Uterus tubes and ovaries were reinserted into the abdominal cavity. A careful anatomical approximation of the anterior abdominal wall was performed. The peritoneum was closed with a continuous suture of chromic. Recti muscles were approximated with interrupted xubhns-ei-zdwnq sutures of chromic. Fascia was closed with a continuous interlocking suture of heavy Vicryl. Subcu was approximated with a continuous plain. And his skin edges were approximated with staple clips. Patient tolerated procedure well. I attest to the content of the Intraoperative Record and any orders documented therein. Any exceptions are noted below.
[2023-01-02] MEDS ORDERED: OXYTOCIN 10 UNITS/ML VIAL IM ONE (10:00)
--- NOTE | 2023-01-02 10:11 | Anesthesiology Progress Note ---
Date of Service January 02, 2023 Anesthesia Post Procedure Vital Signs Vital Signs: Temp Pulse Resp BP Pulse Ox 01/02/23 09:40 20 01/02/23 09:30 20 01/02/23 09:10 97.9 F 18 01/02/23 07:19 97.9 F 20 01/02/23 05:52 98.4 F 18 01/02/23 10:06 71 100 01/02/23 10:01 67 100 01/02/23 09:56 64 100 01/02/23 09:51 75 99 01/02/23 09:46 67 99 01/02/23 09:41 68 98 01/02/23 09:36 74 99 01/02/23 09:31 68 98 01/02/23 09:26 89 98 01/02/23 09:21 78 97 01/02/23 09:18 79 94 01/02/23 09:16 68 99 01/02/23 09:11 97 01/02/23 09:11 72 01/02/23 09:11 73 122/68 01/02/23 07:09 75 133/84 01/02/23 05:38 18 01/02/23 05:38 98.2 F 18 01/02/23 05:42 76 135/63 Transfer of Care Handoff Completed per policy Notes Mental Status: alert / awake / arousable and participated in evaluation Nausea / Vomiting: adequately controlled Pain: adequately controlled Airway Patency, RR, SpO2: stable & adequate BP & HR: stable & adequate Hydration State: stable & adequate Neuraxial Anesthesia: was administered and sensory block is resolving Anesthetic Complications: no major complications apparent and Pt Satisfied with anesthetic care
[2023-01-02] MEDS ORDERED: Nursing to Pharmacy Communication SCH (11:15)
[2023-01-02] MEDS: KETOROLAC 30 MG/ML VIAL IV PRN ×2 (11:27→21:18)
[2023-01-02] MEDS: SIMETHICONE 80 MG CHEW PO SCH ×2 (13:09→21:18)
[2023-01-02] MEDS: OXYTOCIN 20 UNITS in LACTATED RINGER'S 1,000 ML IV SCH ×2 (14:09→22:09)
[2023-01-02] MEDS: DOCUSATE SODIUM 100 MG CAP PO SCH (21:18)
--- OUTSIDE RECORDS SUMMARY | 2023-01-03 01:45 | External Medical Summary | Summary of Care ---
Author Name Unknown Organization [facility] Address [address] [place] [address] Phone [phone] Care Team Providers Care Design Technology Professor Name Role Phone Rekha Raman PA-C Primary Care Provider [phone] Reason for Visit * Reason Comments eRx-Medication Refill Encounter Details Date Type Department Care Team Description 08/03/2022 Refill Family Practice [facility] [address] [place] [address] Rekha Raman PA-C [address] [place] [address] Allergies No known active allergiesdocumented as of this encounter (statuses as of 08/03/2022) Medications Medication Sig Dispensed Refills Start Date End Date Status busPIRone (BUSPAR) 5 MG Tablet Take 1 Tab by mouth 2 times a day. 60 Tab 5 09/01/2018 Active Albuterol Sulfate (ALBUTEROL HFA) 108 (90 BASE) MCG/ACT inhalerIndicatio ns:Acute non-recurrent maxillary sinusitis Inhale 2 Puffs by mouth every 4 hours as needed for Wheezing. 18 g 1 08/06/2019 Active Fluticasone Propionate 50 MCG/ACT Nasal Suspension (Flonase)Indicat ions:Acute non-recurrent maxillary sinusitis Administer 2 Sprays into each nostril 2 times a day. 18.2 mL 6 08/17/2020 Active medroxyPROGESTER one Acetate 10 MG Oral Tablet (Provera)Indicat ions:Amenorrhea Take by mouth 1 Tablet in the morning. 10 Tablet 2 10/30/2021 Active tiZANidine HCl 2 MG Oral Tablet (Zanaflex)Indica tions:Strain of neck muscle, initial encounter Take 1 Tablet by mouth every 6 hours as needed for Muscle spasms. 30 Tablet 0 04/24/2022 Active FLUoxetine HCl 20 MG Oral Capsule (PROzac) TAKE 1 CAPSULE BY MOUTH ONCE DAILY 90 Capsule 2 08/03/2022 Active FLUoxetine HCl 20 MG Oral Capsule (PROzac) TAKE 1 CAPSULE BY MOUTH ONCE DAILY 90 Capsule 3 07/10/2021 3 Discontinued documented as of this encounter (statuses as of 08/03/2022) Active Problems Problem Noted Date Keratosis pilaris 05/27/2015 Idiopathic scoliosis 05/11/2009 Allergic rhinitis documented as of this encounter (statuses as of 08/03/2022) Resolved Problems Problem Noted Date Resolved Date Mass of right lung 12/19/2017 04/03/2018 Other specified urticaria 07/31/20042016 Asthma with severity to be determined 03/19/2017 Overview: ICD-10 update of inactive term documented as of this encounter (statuses as of 08/03/2022) Immunizations Name Administration Dates Next Due COVID-19 mRNA, LNP-s, No Pre serve, 2-Dose Series ([employer]) 04/18/2021,03/28/2021 Meningococcal Conjugate Vacc ine (Menactra/Menveo) 05/11/2009 Seasonal Influenza, Quadriva lent, No Preserve, 6 Mons & Above, IM 03/10/2022,03/01/2020,01/28/2019,01/22 Seasonal Influenza, Quadriva lent, No Preserve, IM 03/11/2017,03/14/2015 Seasonal Influenza, Split, I IV3, With Preserve, Inj 03/09/2014,03/26/2013,02/12/2011,05/11 TDAP (age 10 and older)(Boostrix) 11/20/2012 documented as of this encounter Social History Tobacco Use Types Packs/Day Years Used Date Smoking Tobacco: Former Smokeless Tobacco: Never Comments:Passive smoke expos ure at fathers every other weekend. Alcohol Use Standard Drinks/Week Comments Yes 0 (1 standard drink = 0.6 oz pur e alcohol) ocassional Sex Assigned at Date Recorded Female 09/23/2018 4:17 PM E DT Job Start Date Occupation Industry Not on file Not on file Not on file documented as of this encounter Miscellaneous Notes * Telephone Encounter - Adriano Perrin RPh - 08/03/2022 4:06 PM EDTSigned Prescriptions: Disp Refills FLUoxetine HCl 20 MG Oral Capsule (PROzac) 90 Cap*2 Sig: TAKE 1 CAPSULE BY MOUTH ONCE DAILYAuthorizing Provider: REKHA RAMAN User: ADRIANO PERRIN--------- documented in this encounter Plan of Treatment Health Maintenance Due Date Last Done Comments HIV Screening 09/08/2006 Hepatitis C Screening 09/08/2009 COVID-19 Vaccine (3 - Booster for Pfizer series) 06/13/2021 04/18/2021, 03/28/2021 Depression Screening, Annual for Pts 12 and Over 06/28/2022 06/28/2021, 03/14/2015 (Discussed) Pap Smear 08/19/2022 08/20/2019, 03/06, 03/19/2017, Additional history exists DTaP,Tdap,and Td Vaccines (7 - Td or Tdap) 11/20/2022 11/20/2012, 04/02/2003, 10/09/1996, Additional history exists Hepatitis B Completed 03/18/1992, 10/1991, 1991 MENINGOCOCCAL (MENACTRA/MENVEO) Completed 05/11/2009 GARDASIL-HPV IMMUNIZATION SERIES Aged Out 03/14/2015 (Not indicated), 03/09/2014 (Refused) No longer eligible based on patient's age to complete this topic Influenza Vaccine (FLU shot) Completed 09/2021, 03/01/2020, 03/01/2020, Additional history exists Pneumococcal Vaccine: Pediatrics (0 to 5 Years) and At-Risk Patients (6 to 64 Years) Aged Out No longer eligible based on patient's age to complete this topic documented as of this encounter Medical Devices Not on filedocumented as of this encounter Care Teams Design Technology Professor Relationship Specialty Start Date End Date Lamine Rekha BRANDON Baires [address] [place] [address] PCP - General Physician Director Of Professional Services 05/12/21 documented as of this encounter
--- OUTSIDE RECORDS SUMMARY | 2023-01-03 01:45 | External Medical Summary | Summary of Care ---
Author Name Unknown Organization [place] [address] Care Team Providers Care Director University Name Role Phone Rekha Raman BRANDON Primary Care Provider Encounter Details Date Type Department Care Team Description 03/10/2022 Immunization Ancillary Department, [place] [address] [place] [address] [place] [address] [place] [address] Arrived Allergies No known active allergiesdocumented as of this encounter (statuses as of 03/10/2022) Medications Medication Sig Dispensed Refills Start Date End Date Status busPIRone (BUSPAR) 5 MG Tablet Take 1 Tab by mouth 2 times a day. 60 Tab 5 09/01/2018 Active Albuterol Sulfate (ALBUTEROL HFA) 108 (90 BASE) MCG/ACT inhalerIndications: Acute non-recurrent maxillary sinusitis Inhale 2 Puffs by mouth every 4 hours as needed for Wheezing. 18 g 1 08/06/2019 Active Fluticasone Propionate 50 MCG/ACT Nasal Suspension (Flonase)Indication s:Acute non-recurrent maxillary sinusitis Administer 2 Sprays into each nostril 2 times a day. 18.2 mL 6 08/17/2020 Active FLUoxetine HCl 20 MG Oral Capsule (PROzac) TAKE 1 CAPSULE BY MOUTH ONCE DAILY 90 Capsule 3 07/10/2021 Active medroxyPROGESTERone Acetate 10 MG Oral Tablet (Provera)Indication s:Amenorrhea Take by mouth 1 Tablet in the morning. 10 Tablet 2 10/30/2021 Active documented as of this encounter (statuses as of 03/10/2022) Active Problems Problem Noted Date Keratosis pilaris 05/27/2015 Idiopathic scoliosis 05/11/2009 Allergic rhinitis documented as of this encounter (statuses as of 03/10/2022) Resolved Problems Problem Noted Date Resolved Date Mass of right lung 12/19/2017 04/03/2018 Other specified urticaria 07/31/20042016 Asthma with severity to be determined 03/19/2017 Overview: ICD-10 update of inactive term documented as of this encounter (statuses as of 03/10/2022) Immunizations Name Administration Dates Next Due COVID-19 mRNA, LNP-s, No Pre serve, 2-Dose Series (Pfizer) 04/18/2021,03/28/2021 DTWP - Dipth/Tet/Whole Cell Pertussis ,03/18/1992,01/26/1992,11/08 DTaP - Dipth/Tet/Acell Pertussis 10/09/1996 Haemophilus B (HIB) 12/22/1992, 2,01/26/1992,11/08 Hepatitis B Vaccine 03/18/1992,1991,1991 MMR - Measles/Mumps/Rubella Vaccine 10/09/1996,0 12/22/1992 Meningococcal Conjugate Vacc ine (Menactra/Menveo) 05/11/2009 OPV - Polio Virus Vaccine (Oral) 997,12/22/1992,01/26/1992,11/08 PPD 10/09/1996 Seasonal Influenza Virus Vac cine, Unspecified Formulation 02/05/1996,02/19/1995 Seasonal Influenza, Quadriva lent, No Preserve, 6 Mons & Above, IM 03/10/2022,03/01/2020,01/28/2019,01/22 Seasonal Influenza, Quadriva lent, No Preserve, IM 03/11/2017,03/14/2015 Seasonal Influenza, Split, I IV3, With Preserve, Inj 03/09/2014,03/26/2013,02/12/2011,05/11,02/14/2004,03/10/2003,02/26/2002 ,03/13/2001,04/03/2000,02/09/1999 TD - Tetanus/Diptheria (ADULT) 04/02/2003 TDAP (age 10 and older)(Boostrix) 11/20/2012 documented as of this encounter Social History Tobacco Use Types Packs/Day Years Used Date Former Smoker Smokeless Tobacco: Never Used Comments:Passive smoke expos ure at fathers every other weekend. Alcohol Use Standard Drinks/Week Comments Yes 0 (1 standard drink = 0.6 oz pur e alcohol) ocassional Alcohol Habits Answer Date Recorded How often do you have a drink containing alcohol ? Not asked How many drinks containing a lcohol do you have on a typical day when you are drinking? Not asked How often do you have six or more drinks on one occasion? Not asked Comment: ocassional 12/06/2010 Sex Assigned at Date Recorded Female 09/23/2018 4:17 PM E DT Job Start Date Occupation Industry Not on file Not on file Not on file documented as of this encounter Plan of Treatment Health Maintenance Due Date Last Done Comments HIV Screening 09/08/2006 Hepatitis C Screening 09/08/2009 COVID-19 Vaccine (3 - Booster for Pfizer series) 06/13/2021 04/18/2021, 03/28/2021 Influenza Vaccine (FLU shot) (#1) 2022 03/10/2022, 03/01/2020, 03/01/2020, Additional history exists Depression Screening, Annual for Pts 12 and Over 06/28/2022 06/28/2021, 03/14/2015 (Discussed) PAP SMEAR-EVERY 3 YRS,AGES 21-65 08/19/2022 08/20/2019, 03/20/2017, 03/19/2017, Additional history exists DTaP,Tdap,and Td Vaccines (7 - Td or Tdap) 11/20/2022 11/20/2012, 04/02/2003, 10/09/1996, Additional history exists Hepatitis B Completed 03/18/1992, 10/1991, 1991 MENINGOCOCCAL (MENACTRA/MENVEO) Completed 05/11/2009 GARDASIL-HPV IMMUNIZATION SERIES Aged Out 03/14/2015 (Not indicated), 03/09/2014 (Refused) No longer eligible based on patient's age to complete this topic Pneumococcal Vaccine: Pediatrics (0 to 5 Years) and At-Risk Patients (6 to 64 Years) Aged Out No longer eligible based on patient's age to complete this topic documented as of this encounter Implants Not on filedocumented as of this encounter Advance Directives Documents on File Type Date Recorded Patient Advertising Agency Manager Expl 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 Advanced Directive Advanced Directive Advanced Directive Advanced Directive Advanced Directive Advanced Directive Advanced Directive Advanced Directive Advanced Directive Advanced Directive Advanced Directive Advanced Directive Advanced Directive Care Teams Director University Relationship Specialty Start Date End Date LamineAugust BRANDON Baires [address] [place] [address] PCP - General Physician Clam Dredger 05/12/21 documented as of this encounter
--- OUTSIDE RECORDS SUMMARY | 2023-01-03 01:45 | External Medical Summary | Summary of Care ---
Author Name Unknown Organization [place] [address] Care Team Providers Care Senior Cytotechnologist Name Role Phone Rekha Raman PA-C Primary Care Provider [phone] Reason for Visit * Reason Comments Neck Pain Encounter Details Date Type Department Care Team Description 04/24/2022 Office Visit Family [facility] [address] [place] [address] Rekha Raman PA-C [address] [place] [address] Strain of neck muscle, initial encounter* Allergies No known active allergiesdocumented as of this encounter (statuses as of 04/24/2022) Medications Medication Sig Dispensed Refills Start Date [...] Active tiZANidine HCl 2 MG Oral Tablet (Zanaflex)Indicatio ns:Strain of neck muscle, initial encounter Take 1 Tablet by mouth every 6 hours as needed for Muscle spasms. 30 Tablet 0 04/24/2022 Active documented as of this encounter (statuses as of 04/24/2022) Active Problems Problem Noted Date Keratosis pilaris 05/27/2015 Idiopathic scoliosis 05/11/2009 Allergic rhinitis documented as of this encounter (statuses as of 04/24/2022) Resolved Problems Problem Noted Date Resolved Date Mass of right lung 12/19/2017 04/03/2018 Other specified urticaria 07/31/20042016 Asthma with severity to be determined 03/19/2017 Overview: ICD-10 update of inactive term documented as of this encounter (statuses as of 04/24/2022) Immunizations Name Administration Dates Next Due COVID-19 mRNA, LNP-s, No Pre serve, 2-Dose Series (Milk) 04/18/2021,03/28/2021 Meningococcal Conjugate Vacc ine (Menactra/Menveo) 05/11/2009 [...] on file documented as of this encounter Last Filed Vital Signs Vital Sign Reading Time Taken Comments Blood Pressure 104/68 04/24/2022 11:39 AM EST Pulse 68 04/24/2022 11:39 AM EST Temperature 36.7 C (98.1 F) 04/24/2022 1 1:39 AM EST Respiratory Rate 18 04/24/2022 11:3 9 AM EST Oxygen Saturation - - Inhaled Oxygen Concentration - - Weight 62.5 kg (137 lb 12.8 oz) 022 11:39 AM EST Height - - Body Mass Index 26.04 08/03/2021 1:48 PM EDT documented in this encounter Progress Notes * Rekha Raman PA-C - 04/24/2022 11:53 AM EST Images from the original note were not included. History of Present Illness Aria Hooks is a 31 year old female that presents for Neck Pain Patient is a 31 year old female presents with neck pain of 3 weeks duration. Feels like tension. Not getting better or worse. No know injury. Has a young child at home that requires lifting. Denies radiation, paresthesias or weakness. Tried massage and tylenol. Physical Exam Vitals: 04/24/22 1139 Temp: 36.7 C (98.1 F) Pulse: 68 Resp: 18 BP: 104/68 BP Readings from Last 3 Encounters: 04/24/22 104/68 08/03/21 110/64 06/28/21 110/70 Wt Readings from Last 3 Encounters: 04/24/22 62.5 kg (137 lb 12.8 oz) 08/22/21 64.5 kg (142 lb 3.2 oz) 08/03/21 64.5 kg (142 lb 1.9 oz) General: alert, healthy, no distress, well nourished, well developed and cooperative Head: Normocephalic, No masses, lesions, tenderness or abnormalities Eye Exam: PERRLA, extraocular movements intact, conjunctiva are pink and non- injected, sclera clear Neck: supple, no adenopathy, no bruits, thyroid normal size, non-tender, without nodularity Back: back symmetric, no curvature, no costovertebral angle tenderness, range of motion is normal, no skin lesions, erythema or scars, no tenderness to percussion or palpation, Normal heel walk and toe walk, without evidence of muscle weakness Extremities: less than 2 second capillary refill, no joint deformities, effusion, or inflammation, no edema, no skin discoloration, no clubbing, no cyanosis, Full ROM, Pulses Intact, Strength equal bilaterally I have reviewed the following results: None Assessment and Plan Strain of neck muscle, initial encounter (Primary) - tiZANidine HCl 2 MG Oral Tablet (Zanaflex); Take 1 Tablet by mouth every 6 hours as needed for Muscle spasms. Moist heat, massage, Wrap-Up Time: I spent a total of 20-29 minutes (exact time 25 mins) on the date of service in preparation, delivery, and documentation of the care provided to Aria Hooks excluding any time spent in the performance of separately billed services. documented in this encounter Nursing Notes * Etta Harris LPN - 04/24/2022 11:40 AM EST Aria Hooks presents with complaints of persistent neck pain for past 2 weeks. documented in this encounter Plan of Treatment [...] Not on filedocumented as of this encounter Visit Diagnoses Diagnosis Strain of neck muscle, initial encounter- Primary documented in this encounter Care Teams Senior Cytotechnologist Relationship Specialty Start Date End Date Rekha Raman PA-C [address] [facility] [place] [address] PCP - General Physician Forestry Supervisor 05/12/21 documented as of this encounter
--- OUTSIDE RECORDS SUMMARY | 2023-01-03 01:46 | External Medical Summary | Summary of Care ---
Author Name Unknown Organization [place] [address] Care Team Providers Care Health Science Specialist Name Role Phone Rekha Raman Viry TAYLOR Primary Care Provider [phone] Reason for Visit * Reason Onset Date Comments MyCode Nonconsent - Not interested at this time 08/03/2021 Encounter Details Date Type Department Care Team Description 08/03/2021 Orders Only Outcomes Research Department [address] [place] [address] Nestor Rosenberg CHRA MyCode Nonconsent Documentation Allergies No known active allergiesdocumented as of this encounter (statuses as of 08/03/2021) Medications Medication Sig Dispensed Refills Start Date [...] ONCE DAILY 90 Capsule 3 07/10/2021 Active documented as of this encounter (statuses as of 08/03/2021) Active Problems Problem Noted Date Keratosis pilaris 05/27/2015 Idiopathic scoliosis 05/11/2009 Allergic rhinitis documented as of this encounter (statuses as of 08/03/2021) Resolved Problems Problem Noted Date Resolved Date Mass of right lung 12/19/2017 04/03/2018 Other specified urticaria 07/31/20042016 Asthma with severity to be determined 03/19/2017 Overview: ICD-10 update of inactive term documented as of this encounter (statuses as of 08/03/2021) Immunizations Name Administration Dates Next Due COVID-19 mRNA, LNP-s, No Pre serve, 2-Dose Series ([place]) 04/18/2021,03/28/2021 DTWP - Dipth/Tet/Whole Cell Pertussis ,03/18/1992,01/26/1992,11/08 DTaP - Dipth/Tet/Acell Pertussis 10/09/1996 Haemophilus B (HIB) 12/22/1992, 2,01/26/1992,11/08 Hepatitis B Vaccine 03/18/1992,1991,1991 MMR - Measles/Mumps/Rubella Vaccine 10/09/1996,0 12/22/1992 Meningococcal Conjugate Vacc ine (Menactra/Menveo) 05/11/2009 OPV - Polio Virus Vaccine (Oral) 997,12/22/1992,01/26/1992,11/08 PPD 10/09/1996 Seasonal Influenza Virus Vac cine, Unspecified Formulation 02/05/1996,02/19/1995 Seasonal Influenza, Quadriva lent, No Preserve, 6 Mons & Above, IM 03/01/2020,01/28/2019,01/22/2018 Seasonal Influenza, Quadriva lent, No Preserve, IM [...] on file documented as of this encounter Progress Notes * VEGA Pineda - 08/03/2021 2:15 PM EDT MyCode Nonconsent Documentation Aria Hooks was approached in the clinic regarding participation in the [employer] and did not consent. documented in this encounter Plan of Treatment Upcoming Encounters Date Type Specialty Care Team Description 08/22/2021 Office Visit Otolaryngology Yifan Tapia MD [address] [phone] Health Maintenance Due Date Last Done Comments Influenza Vaccine (FLU shot) (#1) 2021 03/01/2020, 03/01/2020, 01/28/2019, Additional history exists COVID-19 Vaccine (3 - Booster for Pfizer series) 09/16/2021 04/18/2021, 03/28/2021 Depression Screening, Annual for Pts 12 and Over 06/28/2022 06/28/2021, 03/14/2015 (Discussed) PAP SMEAR-EVERY 3 YRS,AGES 21-65 08/19/2022 08/20/2019, 03/20/2017, 03/19/2017, Additional history exists DTaP,Tdap,and Td Vaccines (7 - Td or Tdap) 11/20/2022 11/20/2012, 04/02/2003, 10/09/1996, Additional history exists MENINGOCOCCAL (MENACTRA/MENVEO) Completed 05/11/2009 GARDASIL-HPV IMMUNIZATION SERIES [...] Documents on File Type Date Recorded Patient Senior Communications Specialist Expl 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 Advanced Directive Advanced Directive Advanced Directive Advanced Directive Advanced Directive Advanced Directive Advanced Directive Advanced Directive Advanced Directive Advanced Directive Care Teams Health Science Specialist Relationship Specialty Start Date End Date Lamine Rekha BRANDON Baires [address] [place] [address] PCP - General Physician Water Conservationist 05/12/21 documented as of this encounter
--- OUTSIDE RECORDS SUMMARY | 2023-01-03 01:46 | External Medical Summary | Summary of Care ---
Author Name Unknown Organization [place] [address] Care Team Providers Care Caretaker Name Role Phone Rekha Raman PA-C Primary Care Provider [phone] Encounter Details Date Type Department Care Team Description 05/30/2021 Documentation Pediatrics [facility] [address] [facility] [place] [address] Elaine Morocho, [address] [facility] [place] [address] Allergies No known active allergiesdocumented as of this encounter (statuses as of 05/30/2021) Medications Medication Sig Dispensed Refills Start Date End Date Status triamcinolone acetonide (ARISTOCORT) 0.1 % cream Apply to rash on the back and abdomen twice daily Saturday thru 45 g 0 03/28/2015 Active busPIRone (BUSPAR) 5 MG Tablet Take 1 Tab by mouth 2 times a day. 60 Tab 5 09/01/2018 Active Albuterol Sulfate (ALBUTEROL HFA) 108 (90 BASE) MCG/ACT inhalerIndications :Acute non-recurrent maxillary sinusitis Inhale 2 Puffs by mouth every 4 hours as needed for Wheezing. 18 g 1 08/06/2019 Active FLUoxetine HCl 20 MG Oral Capsule (PROzac) TAKE 1 CAPSULE BY MOUTH ONCE DAILY 90 Cap 3 06/14/2020 Active Fluticasone Propionate 50 MCG/ACT Nasal Suspension (Flonase)Indicatio ns:Acute non-recurrent maxillary sinusitis Administer 2 Sprays into each nostril 2 times a day. 18.2 mL 6 08/17/2020 Active Cefdinir 300 MG Oral Capsule (Omnicef)Indicatio ns:Acute mucoid otitis media of right ear Take 1 Capsule by mouth every 12 hours for 10 days. For 10 days. 20 Capsule 0 05/23/2021 06/02/2021 Active documented as of this encounter (statuses as of 05/30/2021) Active Problems Problem Noted Date Keratosis pilaris 05/27/2015 Idiopathic scoliosis 05/11/2009 Allergic rhinitis documented as of this encounter (statuses as of 05/30/2021) Resolved Problems Problem Noted Date Resolved Date Mass of right lung 12/19/2017 04/03/2018 Other specified urticaria 07/31/20042016 Asthma with severity to be determined 03/19/2017 Overview: ICD-10 update of inactive term documented as of this encounter (statuses as of 05/30/2021) Immunizations Name Administration Dates Next Due COVID-19 mRNA, LNP-s, No Pre serve, 2-Dose Series ([employer]) 04/18/2021,03/28/2021 DTWP - Dipth/Tet/Whole Cell Pertussis ,03/18/1992,01/26/1992,11/08 DTaP - Dipth/Tet/Acell Pertussis 10/09/1996 Haemophilus B (HIB) 12/22/1992, 2,01/26/1992,11/08 Hepatitis B Vaccine 03/18/1992,1991,1991 Influenza Virus Vaccine, Uns pecified Formulation 02/05/1996,02/19/1995 MMR - Measles/Mumps/Rubella Vaccine 10/09/1996,0 12/22/1992 Meningococcal Conjugate Vacc ine (Menactra/Menveo) 05/11/2009 OPV - Polio Virus Vaccine (Oral) 997,12/22/1992,01/26/1992,11/08 PPD 10/09/1996 Seasonal Influenza, Quadriva lent, No Preserve, 6 [...] as of this encounter Progress Notes * Elaine Morocho, DO - 05/30/2021 5:09 PM EST [place] Depression Screen Some values may be hidden. Unless noted otherwise, only the newest values recorded on each date aredisplayed. [place] Depression Screening 03/24/21 05/30/21 I have been able to laugh and see the funny side of things. As much as I always could [0] As much as I always could [0] I have looked forward with enjoyment to things. As much as I ever did [0] As much as I ever did [0] I have blamed myself unnecessarily when things went wrong. Not very often [1] Yes, some of the time[2] I have been anxious or worried for no good reason. Hardly ever [1] Yes, sometimes [2] I have felt scared or panicky for no good reason. No, not much [1] No, not much [1] Things have been getting on top of me. No, most of the time I have coped quite well [1] No, most ofthe time I have coped quite well [1] I have been so unhappy that I have had difficulty sleeping. Not at all [0] Not at all [0] I have felt sad or miserable. Not very often [1] Not very often [1] I have been so unhappy that I have been crying. No, never [0] No, never [0] The thought of harming myself has occurred to me. Never [0] Never [0] [place] Depression Scale Total 5 7 documented in this encounter Plan of Treatment Health Maintenance Due Date Last Done Comments Depression Screening, Annual for Pts 12 and Over 08/19/2020 08/20/2019, 03/14/2015 (Discussed) Influenza Vaccine (FLU shot) (#1) 2021 03/01/2020, 03/01/2020, 01/28/2019, Additional history exists COVID-19 Vaccine (3 - Booster for Pfizer series) 09/16/2021 04/18/2021, 03/28/2021 PAP SMEAR-EVERY 3 YRS,AGES 21-65 08/19/2022 08/20/2019, [...] Documents on File Type Date Recorded Patient Wan Support Specialist Expl 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 Advanced Directive Advanced Directive Advanced Directive Advanced Directive Advanced Directive Advanced Directive Care Teams Caretaker Relationship Specialty Start Date End Date Lamine August Viry, BRANDON [address] [place] [address] PCP - General Physician Pick Pack Worker 05/12/21 documented as of this encounter
--- OUTSIDE RECORDS SUMMARY | 2023-01-03 01:46 | External Medical Summary | Summary of Care ---
Author Name Unknown Organization [place] [address] Care Team Providers Care Sheep Rancher Name Role Phone Rekha Raman PA-C Primary Care Provider [phone] Reason for Referral * Evaluate & Treat - Unlimited Visits (Within 30 days (routine)) - Pending Review Specialty Diagnoses / Procedures Referred By Jean-Pierre carpio Referred To Contact Otolaryngology Diagnoses Chronic maxillary sinusitis Rekha Raman PA-C [address] [place] [id number] Referral ID Status Reason Start Date Expiration Date Visits Requested Visits Authorized [id number] Pending Review Specialty Services Required 08/03/2021 1 1 Question Answer Referral Priority Within 30 days (routine) Reason for Referral: Rhinology/Allergy Specific Condition: Chronic Sinusitis Reason for Visit * Reason Comments Sinus Problem Encounter Details Date Type Department Care Team Description 08/03/2021 Office Visit Family Practice [facility] [address] [place] [address] [address] Rekha Raman PA-C [address] [place] [address] [address] Chronic maxillary sinusitis* Allergies No known active allergiesdocumented as of [...] mRNA, LNP-s, No Pre serve, 2-Dose Series ([employer]) 04/18/2021,03/28/2021 DTWP - Dipth/Tet/Whole Cell Pertussis ,03/18/1992,01/26/1992,11/08 [...] Sign Reading Time Taken Comments Blood Pressure 110/64 08/03/2021 1:48 PM EDT Pulse 86 08/03/2021 1:48 PM EDT Temperature 36.7 C (98.1 F) 08/03/2021 1:48 PM ED T Respiratory Rate 16 08/03/2021 1:48 PM EDT Oxygen Saturation 97% 08/03/2021 1:48 PM EDT Inhaled Oxygen Concentration - - Weight 64.5 kg (142 lb 1.9 oz) 08/03/2021 1:48 P M EDT Height 154.9 cm (5' 1") 08/03/2021 1:48 PM EDT Body Mass Index 26.85 08/03/2021 1:48 PM EDT documented in this encounter Progress Notes * Rekha Raman PA-C - 08/03/2021 1:56 PM EDT Images from the original note were not included. History of Present Illness Aria Hooks is a 30 year old female that presents for Sinus Problem Patient is a 30 year old female who presents for a follow up. Got sick again. Has been taking flonase, sudafed. Ears are ok. Has not been feeling well for 2 weeks. Nasal congestion is super green and super thick. Awake at night with constant cough History of sinus infections Denies sneezing Sinus problems since age 25. Physical Exam Vitals: 08/03/21 1348 Temp: 36.7 C (98.1 F) Pulse: 86 Resp: 16 SpO2: 97% BP: 110/64 BMI: 26.87 BP Readings from Last 3 Encounters: 08/03/21 110/64 06/28/21 110/70 06/14/21 100/60 Wt Readings from Last 3 Encounters: 08/03/21 64.5 kg (142 lb 1.9 oz) 06/28/21 65.5 kg (144 lb 6.4 oz) 06/14/21 66.8 kg (147 lb 4 oz) General: alert, healthy, no distress, well nourished, well developed, comfortable and cooperative Head: Normocephalic, No masses, lesions, tenderness or abnormalities Eye Exam: PERRLA, extraocular movements intact, conjunctiva are pink and non- injected, sclera clear Ears: External ears normal, Canals clear, TM's Normal Nose: no mucosal erythema, no purulent discharge, mucosal edema Oropharynx: no exudate, no erythema, lips, buccal mucosa, and tongue normal and mucous membranes are moist Neck: supple, no adenopathy, no bruits, thyroid normal size, non-tender, without nodularity Heart: regular rate & rhythm, no murmurs and no gallops Lungs: chest symmetric with normal AP diameter, no chest deformities noted, normal respiratory rateand rhythm, no chest wall tenderness, diaphragmatic excursion normal, lungs clear to auscultation I have reviewed the following results: None Assessment and Plan Chronic maxillary sinusitis (Primary) - OTOLARYNGOLOGY REFERRAL OP Check-out note: Schedule ENT Advised daily allergy medication like Whitney Zyrtec. Also advised salt water nose drops regularly. Wrap-Up Time: I spent a total of 20-29 minutes (exact time 25 mins) on the date of service in preparation, delivery, and documentation of the care provided to Aria Hooks excluding any time spent in the performance of separately billed services. documented in this encounter Nursing Notes * Beata Cantu LPN - 08/03/2021 1:48 PM EDT Patient presents today for reoccurring sinus infections. documented in this encounter Plan of Treatment Upcoming Encounters Date Type Specialty Care Team Description 08/22/2021 Office Visit Otolaryngology Yifan Tapia MD [address] [facility] [place] [address] Scheduled Referrals Name Type Priority Associated Diagnoses Order Schedule OTOLARYNGOLOGY REFERRAL OP Referral Within 30 days (routine) Chronic maxillary sinusitis Ordered: 08/03/2021 Health Maintenance Due Date Last Done Comments [...] as of this encounter Visit Diagnoses Diagnosis Chronic maxillary sinusitis- Primary documented in this encounter Advance Directives Documents on File Type Date Recorded Patient Out Of Town Collection Clerk Expl 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 Advanced Directive Advanced Directive Advanced Directive Advanced Directive Advanced Directive Advanced Directive Advanced Directive Advanced Directive Advanced Directive Advanced Directive Care Teams Sheep Rancher Relationship Specialty Start Date End Date LamineAugust BRANDON Baires [address] [place] [address] PCP - General Physician Rod Finisher 05/12/21 documented as of this encounter
--- OUTSIDE RECORDS SUMMARY | 2023-01-03 01:46 | External Medical Summary | Summary of Care ---
Author Name Unknown Organization [place] [address] Care Team Providers Care Hub Inventory Specialist Name Role Phone Ernesto HENRY MD, Ilya Reid Primary Care Provider [phone] Encounter Details Date Type Department Care Team Description 02/28/2021 Scan Encounter [facility] [address] [place] [address] Rekha Raman PA-C [address] [facility] [place] [address] [phone] <No scans attached> Allergies No Known Active Allergiesdocumented as of this encounter (statuses as of 03/06/2021) Medications Medication Sig Dispensed Refills Start Date End Date Status triamcinolone acetonide (ARISTOCORT) 0.1 % cream Apply to rash on the back and abdomen twice daily Saturday thru 45 g 0 03/28/2015 Active busPIRone (BUSPAR) 5 MG Tablet Take 1 Tab by mouth 2 times a day. 60 Tab 5 09/01/2018 Active Albuterol Sulfate (ALBUTEROL HFA) 108 (90 BASE) MCG/ACT inhalerIndications:A cute non-recurrent maxillary sinusitis Inhale 2 Puffs by mouth every 4 hours as needed for Wheezing. 18 g 1 08/06/2019 Active medroxyPROGESTERone Acetate 10 MG Oral Tablet (Provera)Indications :Amenorrhea Take 1 Tab by mouth daily. 10 Tab 2 05/10/2020 Active FLUoxetine HCl 20 MG Oral Capsule (PROzac) TAKE 1 CAPSULE BY MOUTH ONCE DAILY 90 Cap 3 06/14/2020 Active Fluticasone Propionate 50 MCG/ACT Nasal Suspension (Flonase)Indications :Acute non-recurrent maxillary sinusitis Administer 2 Sprays into each nostril 2 times a day. 18.2 mL 6 08/17/2020 Active documented as of this encounter (statuses as of 03/06/2021) Active Problems Problem Noted Date Keratosis pilaris 05/27/2015 Idiopathic scoliosis 05/11/2009 Allergic rhinitis documented as of this encounter (statuses as of 03/06/2021) Resolved Problems Problem Noted Date Resolved Date Mass of right lung 12/19/2017 04/03/2018 Other specified urticaria 07/31/20042016 Asthma with severity to be determined 03/19/2017 Overview: ICD-10 update of inactive term documented as of this encounter (statuses as of 03/06/2021) Immunizations Name Administration Dates Next Due DTWP - Dipth/Tet/Whole Cell Pertussis ,03/18/1992,01/26/1992,11/08 DTaP [...] Tobacco Use Types Packs/Day Years Used Date Current Some Day Smoker Smokeless Tobacco: Never Used Comments:Passive smoke expos ure at fathers every other weekend. Alcohol Use Drinks/Week oz/Week Comments Yes ocassional Sex Assigned at Date Recorded Female 09/23/2018 4:17 PM E DT Job Start Date Occupation Industry Not on file Not on file Not on file documented as of this encounter Plan of Treatment Health Maintenance Due Date Last Done Comments Pneumococcal Vaccine: Pediatrics (0 to 5 Years) and At-Risk Patients (6 to 64 Years) (1 of 2 - PPSV23) 09/08/1997 COVID-19 Vaccine (1) 2003 Influenza Vaccine (FLU shot) (#1) 2021 03/01/2020, 01/28/2019, 01/22/2018, Additional history exists PAP SMEAR-EVERY 3 YRS,AGES 21-65 08/19/2022 08/20/2019, 03/20/2017, 03/19/2017, Additional history exists DTaP,Tdap,and Td Vaccines (7 - Td) 11/20/2022 11/20/2012, 04/02/2003, 10/09/1996, Additional history exists MENINGOCOCCAL (MENACTRA/MENVEO) Completed 05/11/2009 *DEPRESSION SCREENING,ANNUAL FOR PTS 12 AND OVER Addressed 03/14/2015 (Discussed) Overridden with t he intention of not completing the topic documented as of this encounter Implants Not on filedocumented as of this encounter Advance Directives Documents on File Type Date Recorded Patient Business Analysis Consultant Expl 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 Advanced Directive Advanced Directive Advanced Directive Advanced Directive Advanced Directive
--- OUTSIDE RECORDS SUMMARY | 2023-01-03 01:46 | External Medical Summary | Summary of Care ---
Author Name Unknown Organization [place] [address] Care Team Providers Care Crop Insurance Claims Adjuster Name Role Phone Rekha Raman PA-C Primary Care Provider [phone] Reason for Visit * Reason Comments eRx-Medication Refill Encounter Details Date Type Department Care Team Description 07/09/2021 Refill Family Practice [facility] [place] [address] [facility] [place] [address] Rekha Raman PA-C [address] [facility] [place] [address] Allergies No known active allergiesdocumented as of this encounter (statuses as of 07/10/2021) Medications Medication Sig Dispensed Refills Start Date [...] ONCE DAILY 90 Capsule 3 07/10/2021 Active FLUoxetine HCl 20 MG Oral Capsule (PROzac) TAKE 1 CAPSULE BY MOUTH ONCE DAILY 90 Cap 3 06/14/2020 2 Discontinued documented as of this encounter (statuses as of 07/10/2021) Active Problems Problem Noted Date Keratosis pilaris 05/27/2015 Idiopathic scoliosis 05/11/2009 Allergic rhinitis documented as of this encounter (statuses as of 07/10/2021) Resolved Problems Problem Noted Date Resolved Date Mass of right lung 12/19/2017 04/03/2018 Other specified urticaria 07/31/20042016 Asthma with severity to be determined 03/19/2017 Overview: ICD-10 update of inactive term documented as of this encounter (statuses as of 07/10/2021) Immunizations Name Administration Dates Next Due COVID-19 mRNA, LNP-s, No Pre serve, 2-Dose Series ([id number]) 04/18/2021,03/28/2021 DTWP - Dipth/Tet/Whole Cell Pertussis ,03/18/1992,01/26/1992,11/08 [...] encounter Miscellaneous Notes * Telephone Encounter - Ghada Mcconnell RPh - 07/10/2021 1:06 PM EST Signed Prescriptions: Disp Refills FLUoxetine HCl 20 MG Oral Capsule (PROzac) 90 Cap*3 Sig: TAKE 1 CAPSULE BY MOUTH ONCE DAILYAuthorizing Provider: REKHA RAMAN AOrjeaning User: GHADA MCCONNELL------ documented in this encounter Plan of Treatment [...] Documents on File Type Date Recorded Patient Director Acute Expl 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 Advanced Directive Advanced Directive Advanced Directive Advanced Directive Advanced Directive Advanced Directive Advanced Directive Advanced Directive Care Teams Crop Insurance Claims Adjuster Relationship Specialty Start Date End Date LamineAugust BRANDON Baires [address] [place], [place] [address] PCP - General Physician Orbitread Operator 05/12/21 documented as of this encounter
--- OUTSIDE RECORDS SUMMARY | 2023-01-03 01:46 | External Medical Summary | Summary of Care ---
Author Name Unknown Organization [place] [address] Care Team Providers Care Youth Agent Name Role Phone Ernesto HENRY MD, Ilya Reid Primary Care Provider [phone] Encounter Details Date Type Department Care Team Description 03/12/2021 Scan Encounter [facility] [address] [place] [address] Rekha Raman PA-C [address] [facility] [place] [address] <No scans attached> Allergies No known active allergiesdocumented as of this encounter (statuses as of 03/17/2021) Medications Medication Sig Dispensed Refills Start Date [...] as of this encounter (statuses as of 03/17/2021) Active Problems Problem Noted Date Keratosis pilaris 05/27/2015 Idiopathic scoliosis 05/11/2009 Allergic rhinitis documented as of this encounter (statuses as of 03/17/2021) Resolved Problems Problem Noted Date Resolved Date Mass of right lung 12/19/2017 04/03/2018 Other specified urticaria 07/31/20042016 Asthma with severity to be determined 03/19/2017 Overview: ICD-10 update of inactive term documented as of this encounter (statuses as of 03/17/2021) Immunizations Name Administration Dates Next Due DTWP [...] Health Maintenance Due Date Last Done Comments COVID-19 Vaccine (1) 09/08/1996 Pneumococcal Vaccine: Pediatrics (0 to 5 Years) and At-Risk Patients (6 to 64 Years) (1 of 2 - PPSV23) 09/08/1997 Influenza Vaccine (FLU shot) (#1) 2021 03/01/2020, [...] Documents on File Type Date Recorded Patient Commercial Credit Specialist Expl 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 Advanced Directive Advanced Directive Advanced Directive Advanced Directive Advanced Directive Care Teams Youth Agent Relationship Specialty Start Date End Date [place] ELAINE, Ilya Reid MD [address] [place] [address] PCP - General 07/30/05 documented as of this encounter
--- OUTSIDE RECORDS SUMMARY | 2023-01-03 01:46 | External Medical Summary | Summary of Care ---
Author Name Unknown Organization [place] [address] Care Team Providers Care Pig Furnace Operator Name Role Phone Ernesto HENRY MD, Ilya Reid Primary Care Provider [phone] Encounter Details Date Type Department Care Team Description 03/12/2021 Scan Encounter [facility] [address] [place] [address] Ilya Orozco III, MD [address] [place] [address] <No scans attached> Allergies No known active allergiesdocumented as of this encounter (statuses as of 03/13/2021) Medications Medication Sig Dispensed Refills Start Date [...] as of this encounter (statuses as of 03/13/2021) Active Problems Problem Noted Date Keratosis pilaris 05/27/2015 Idiopathic scoliosis 05/11/2009 Allergic rhinitis documented as of this encounter (statuses as of 03/13/2021) Resolved Problems Problem Noted Date Resolved Date Mass of right lung 12/19/2017 04/03/2018 Other specified urticaria 07/31/20042016 Asthma with severity to be determined 03/19/2017 Overview: ICD-10 update of inactive term documented as of this encounter (statuses as of 03/13/2021) Immunizations Name Administration Dates Next Due DTWP [...] Documents on File Type Date Recorded Patient Expressive Music Therapist Expl 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 Advanced Directive Advanced Directive Advanced Directive Advanced Directive Advanced Directive Care Teams Pig Furnace Operator Relationship Specialty Start Date End Date Ernesto III, Ilya Reid MD [address] [place] [id number] PCP - General 07/30/05 documented as of this encounter
--- OUTSIDE RECORDS SUMMARY | 2023-01-03 01:46 | External Medical Summary | Summary of Care ---
Author Name Unknown Organization [place] [address] Care Team Providers Care Trampoline Team Coach Name Role Phone Rekha Raman PA-C Primary Care Provider [phone] Reason for Visit * Reason Comments Sinus Problem Encounter Details Date Type Department Care Team Description 05/23/2021 Office Visit Family Practice [facility] [address] [facility] [place] [address] Rekha Raman PA-C [address] [facility] [place] [address] Acute mucoid otitis media of right ear* Allergies No known active allergiesdocumented as of this encounter (statuses as of 05/23/2021) Medications Medication Sig Dispensed Refills Start Date [...] 08/17/2020 Active Cefdinir 300 MG Oral Capsule (Omnicef)Indicat ions:Acute mucoid otitis media of right ear Take 1 Capsule by mouth every 12 hours for 10 days. For 10 days. 20 Capsule 0 05/23/2021 06/02/2021 Active medroxyPROGESTER one Acetate 10 MG Oral Tablet (Provera)Indicat ions:Amenorrhea Take 1 Tab by mouth daily. 10 Tab 2 05/10/2020 05/23/2021 Discontinue d(End of Procedure) documented as of this encounter (statuses as of 05/23/2021) Active Problems Problem Noted Date Keratosis pilaris 05/27/2015 Idiopathic scoliosis 05/11/2009 Allergic rhinitis documented as of this encounter (statuses as of 05/23/2021) Resolved Problems Problem Noted Date Resolved Date Mass of right lung 12/19/2017 04/03/2018 Other specified urticaria 07/31/20042016 Asthma with severity to be determined 03/19/2017 Overview: ICD-10 update of inactive term documented as of this encounter (statuses as of 05/23/2021) Immunizations Name Administration Dates Next Due COVID-19 mRNA, LNP-s, No Pre serve, 2-Dose Series (Nasty Gal) 04/18/2021,03/28/2021 DTWP - Dipth/Tet/Whole Cell Pertussis ,03/18/1992,01/26/1992,11/08 [...] Sign Reading Time Taken Comments Blood Pressure 104/64 05/23/2021 10:46 AM EST Pulse 73 05/23/2021 10:46 AM EST Temperature 36.6 C (97.9 F) 05/23/2021 10:[address] Respiratory Rate 18 05/23/2021 10:46 AM EST Oxygen Saturation 98% 05/23/2021 10:46 AM EST Inhaled Oxygen Concentration - - Weight 67.1 kg (148 lb) 05/23/2021 10:46 AM EST Height - - Body Mass Index 27.07 03/01/2020 8:40 AM EDT documented in this encounter Progress Notes * Rekha Raman PA-C - 05/23/2021 10:57 AM EST Images from the original note were not included. History of Present Illness Aria Melgar is a 30 year old female that presents for Sinus Problem Patient is a 30 year old female who presents for a follow up on a positive covid on 05/11/21. Currently her symptroms are ear ache, nasal congestion, facial pressure, pn drip, sore throat, decreased smell, cough/mixed since having covid. Taking sudafed and delsym. Physical Exam Vitals: 05/23/21 1046 Temp: 36.6 C (97.9 F) Pulse: 73 Resp: 18 SpO2: 98% BP: 104/64 General: alert, no distress, well nourished, well developed and cooperative Head: Normocephalic, No masses, lesions, tenderness or abnormalities Ears: External ears normal, Canals clear, R TM dull and erythematous, L TM dull Nose: no purulent discharge, mucosal edema, mucosal erythema Oropharynx: no exudate, no erythema, lips, buccal [...] the following results: None Assessment and Plan There are no diagnoses linked to this encounter. Wrap-Up Time: I spent a total of 20-29 minutes (exact time 22 mins) on the date of service in preparation, delivery, and documentation of the care provided to Aria Melgar excluding any time spent in the performance of separately billed services. documented in this encounter Nursing Notes * Obdulia Schmidt LPN - 05/23/2021 10:45 AM EST Patient was tested for covid on 05/11 and it was positive. Symptoms resolved other than a linger cough. Since then she has developed some sinus pressure/congestion with green drainage. 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
--- OUTSIDE RECORDS SUMMARY | 2023-01-03 01:46 | External Medical Summary | Summary of Care ---
Author Name Unknown Organization [place] [address] Care Team Providers Care Torch Solderer Name Role Phone Rekha Raman PA-C Primary Care Provider [phone] Reason for Visit * Reason Comments Re-Check pt here for recheck on R ear Encounter Details Date Type Department Care Team Description 06/28/2021 Office Visit Family Practice [facility] [place] [address] [facility] [place] [address] Rekha Raman PA-C [address] [facility] [place] [address] Dysfunction of right eustachian tube* Allergies No known active allergiesdocumented as of this encounter (statuses as of 06/28/2021) Medications Medication Sig Dispensed Refills Start Date [...] as of this encounter (statuses as of 06/28/2021) Active Problems Problem Noted Date Keratosis pilaris 05/27/2015 Idiopathic scoliosis 05/11/2009 Allergic rhinitis documented as of this encounter (statuses as of 06/28/2021) Resolved Problems Problem Noted Date Resolved Date Mass of right lung 12/19/2017 04/03/2018 Other specified urticaria 07/31/20042016 Asthma with severity to be determined 03/19/2017 Overview: ICD-10 update of inactive term documented as of this encounter (statuses as of 06/28/2021) Immunizations Name Administration Dates Next Due COVID-19 [...] Sign Reading Time Taken Comments Blood Pressure 110/70 06/28/2021 11:48 AM EST Pulse 76 06/28/2021 11:48 AM EST Temperature 36.2 C (97.2 F) 06/28/2021 11:[address] Respiratory Rate 16 06/28/2021 11:48 AM EST Oxygen Saturation 98% 06/28/2021 11:48 AM EST Inhaled Oxygen Concentration - - Weight 65.5 kg (144 lb 6.4 oz) 06/28/2021 11:48 AM EST Height - - Body Mass Index 27.28 06/14/2021 9:56 AM EST documented in this encounter Progress Notes * Rekha Raman PA-C - 06/28/2021 12:11 PM EST Images from the original note were not included. History of Present Illness Aria Melgar is a 30 year old female that presents for Re-Check (pt here for recheck on R ear ) Patient is a 30 year old female who presents for a follow up on her right ear. Still having popping, crackling. But no pain. Physical Exam Vitals: 06/28/21 1148 Temp: 36.2 C (97.2 F) Pulse: 76 Resp: 16 SpO2: 98% BP: 110/70 BP Readings from Last 3 Encounters: 06/28/21 110/70 06/14/21 100/60 05/23/21 104/64 Wt Readings from Last 3 Encounters: 06/28/21 65.5 kg (144 lb 6.4 oz) 06/14/21 66.8 kg (147 lb 4 oz) 05/23/21 67.1 kg (148 lb) General: alert, healthy, no distress, well nourished, well developed, comfortable and cooperative Head: Normocephalic, No masses, lesions, tenderness or abnormalities Ears: External ears normal, Canals clear, R TM dull and mobility: decreased, L TM dull and mobility: decreased Nose: no mucosal erythema, no mucosal edema, no purulent discharge Oropharynx: no exudate, no erythema, lips, buccal mucosa, and tongue normal and mucous membranes are moist Neck: supple, no adenopathy, no bruits, thyroid normal size, non-tender, without nodularity I have reviewed the following results: None Assessment and Plan Dysfunction of right eustachian tube (Primary) Will do trial with decongestant and flonase. Wrap-Up Time: I spent a total of 20-29 minutes (exact time 25 mins) on the date of service in preparation, delivery, and documentation of the care provided to Aria Melgar excluding any time spent in the performance of separately billed services. documented in this encounter Nursing Notes * Betzaida Carrasco LPN - 06/28/2021 11:46 AM EST Chief Complaint Patient presents with Re-Check pt here for recheck on R ear documented in this encounter Plan of Treatment Health Maintenance Due Date Last Done Comments Depression Screening, Annual for Pts 12 and Over 08/19/2020 06/28/2021, 03/14/2015 (Discussed) Influenza Vaccine (FLU shot) (#1) [...] as of this encounter Visit Diagnoses Diagnosis Dysfunction of right eustachian tube- Primary Dysfunction of Eustachian tube documented in this encounter Advance Directives Documents on File Type Date Recorded Patient Roller Operator Expl 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 Advanced Directive Advanced Directive Advanced Directive Advanced Directive Advanced Directive Advanced Directive Advanced Directive Advanced Directive Care Teams Torch Solderer Relationship Specialty Start Date End Date Rekha Raman PA-C [address] [facility] [place] [address] PCP - General Physician Paint Tester 05/12/21 documented as of this encounter
--- OUTSIDE RECORDS SUMMARY | 2023-01-03 01:46 | External Medical Summary | Summary of Care ---
Author Name Unknown Organization [place] [address] Care Team Providers Care Wire Inserter Name Role Phone Rekha Raman PA-C Primary Care Provider [phone] Reason for Visit * Reason Comments Earache on and off for the p ast 2 weeks Encounter Details Date Type Department Care Team Description 06/14/2021 Office Visit Family Practice [facility] [address] [facility] [place] [address] Rekha Raman PA-C [address] [facility] [place] [address] Right acute serous otitis media, recurrence not specified* Allergies No known active allergiesdocumented as of this encounter (statuses as of 06/14/2021) Medications Medication Sig Dispensed Refills Start Date [...] a day. 18.2 mL 6 08/17/2020 Active Ciprofloxacin HCl 250 MG Oral Tablet (Cipro)Indicatio ns:Right acute serous otitis media, recurrence not specified Take by mouth 1 Tablet in the morning AND 1 Tablet before bedtime. Do all this for 10 days. 20 Tablet 0 06/14/2021 06/24/2021 Active triamcinolone acetonide (ARISTOCORT) 0.1 % cream Apply to rash on the back and abdomen twice daily Saturday thru 45 g 0 03/28/2015 06/14/2021 Discontinue d(Patient preference/ discontinua tion) Cefdinir 300 MG Oral Capsule (Omnicef)Indicat ions:Acute mucoid otitis media of right ear Take by mouth 1 Capsule in the morning AND 1 Capsule before bedtime. 14 Capsule 0 06/01/2021 06/14/2021 Discontinue d(Medicatio n List Clean Up) documented as of this encounter (statuses as of 06/14/2021) Active Problems Problem Noted Date Keratosis pilaris 05/27/2015 Idiopathic scoliosis 05/11/2009 Allergic rhinitis documented as of this encounter (statuses as of 06/14/2021) Resolved Problems Problem Noted Date Resolved Date Mass of right lung 12/19/2017 04/03/2018 Other specified urticaria 07/31/20042016 Asthma with severity to be determined 03/19/2017 Overview: ICD-10 update of inactive term documented as of this encounter (statuses as of 06/14/2021) Immunizations Name Administration Dates Next Due COVID-19 mRNA, LNP-s, No Pre serve, 2-Dose Series ([place]) 04/18/2021,03/28/2021 DTWP - Dipth/Tet/Whole Cell Pertussis ,03/18/1992,01/26/1992,11/08 [...] Sign Reading Time Taken Comments Blood Pressure 100/60 06/14/2021 9:56 AM EST Pulse 68 06/14/2021 9:56 AM EST Temperature 36.3 C (97.4 F) 06/14/2021 9 :56 AM EST Respiratory Rate 16 06/14/2021 9:56 AM EST Oxygen Saturation - - Inhaled Oxygen Concentration - - Weight 66.8 kg (147 lb 4 oz) 06/14/2021 9:56 AM EST Height 154.9 cm (5' 1") 06/14/2021 9:56 AM EST reported by patient Body Mass Index 27.82 06/14/2021 9:56 AM EST documented in this encounter Progress Notes * Rekha Raman PA-C - 06/14/2021 10:08 AM EST Images from the original note were not included. History of Present Illness Aria Melgar is a 30 year old female that presents for Earache (on and off for the past 2 weeks) Patient is a 30 year old female who presents with ongoing right ear pain. Last night had severe pain had to take pain pill. Denies drainage. Hearing ok. Some nasal congestion. Physical Exam Vitals: 06/14/21 0956 Temp: 36.3 C (97.4 F) Pulse: 68 Resp: 16 BP: 100/60 BMI: 27.84 General: alert, healthy, no distress, well nourished, well developed, comfortable and cooperative Head: Normocephalic, No masses, lesions, tenderness or abnormalities Ears: External ears normal, Canals clear, R TM dull and erythematous, L TM normal Nose: no mucosal erythema, no mucosal edema, [...] the following results: None Assessment and Plan Right acute serous otitis media, recurrence not specified (Primary) - Ciprofloxacin HCl 250 MG Oral Tablet (Cipro); Take by mouth 1 Tablet in the morning AND 1 Tablet before bedtime. Do all this for 10 days. Follow Up: Return in about 2 weeks (around 06/28/2021) for Clinic Visit/ear recheck. | For: Clinic Visit/ear recheck Wrap-Up Time: I spent a total of 20-29 minutes (exact time 21 mins) on the date of service in preparation, delivery, and documentation of the care provided to Aria Melgar excluding any time spent in the performance of separately billed services. documented in this encounter Nursing Notes * Keagan Tobar RN - 06/14/2021 9:55 AM EST Chief Complaint Patient presents with Earache on and off for the past 2 weeks documented in this encounter Plan of Treatment Upcoming Encounters Date Type Specialty Care Team Description 06/28/2021 Office Visit Family Medicine Rekha Raman PA-C [address] [place] [address] Health Maintenance Due Date Last Done Comments [...] as of this encounter Visit Diagnoses Diagnosis Right acute serous otitis media, recurrence not specified- Primary documented in this encounter Advance Directives Documents on File Type Date Recorded Patient Label Coder Expl 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 Advanced Directive Advanced Directive Advanced Directive Advanced Directive Advanced Directive Advanced Directive Advanced Directive Advanced Directive Care Teams Wire Inserter Relationship Specialty Start Date End Date LamineAugust BRANDON Baires [address] [place] [address] PCP - General Physician Business Technology Teacher 05/12/21 documented as of this encounter
--- OUTSIDE RECORDS SUMMARY | 2023-01-03 01:46 | External Medical Summary | Summary of Care ---
Author Name Unknown Organization [place] [address] Care Team Providers Care Water Quality Manager Name Role Phone Ernesto HENRY MD, Ilya Reid Primary Care Provider [phone] Reason for Visit * Reason Onset Date Comments Advice 12/16/2020 Encounter Details Date Type Department Care Team Description 12/16/2020 Telephone Family Practice [facility] [address] [facility] [place] [address] Ilya Orozco III, MD 200 [place] [address] [phone] Advice Allergies No Known Active Allergiesdocumented as of this encounter (statuses as of 12/16/2020) Medications Medication Sig Dispensed Refills Start Date [...] as of this encounter (statuses as of 12/16/2020) Active Problems Problem Noted Date Keratosis pilaris 05/27/2015 Idiopathic scoliosis 05/11/2009 Allergic rhinitis documented as of this encounter (statuses as of 12/16/2020) Resolved Problems Problem Noted Date Resolved Date Mass of right lung 12/19/2017 04/03/2018 Other specified urticaria 07/31/20042016 Asthma with severity to be determined 03/19/2017 Overview: ICD-10 update of inactive term documented as of this encounter (statuses as of 12/16/2020) Immunizations Name Administration Dates Next Due DTWP [...] encounter Miscellaneous Notes * Telephone Encounter - Gabby Winchester LPN - 12/16/2020 10:40 AM EDT Patient aware and verbalized understanding, will comply * Telephone Encounter - Obdulia Schmidt LPN - 12/16/2020 10:35 AM EDT Left message for patient to return call. We have no available appointments today. Recommend she go to orthopedics walk-in clinic at [facility] (open til 4pm) or [facility] urgent care. * Telephone Encounter - Katherine Aviles OSA - 12/16/2020 8:05 AM EDT Pt is calling in stating that she thinks that she sprained her wrist. No open appointments in clinic documented in this encounter Plan of Treatment [...] Documents on File Type Date Recorded Patient Automotive General Manager Expl 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 Advanced Directive Advanced Directive Advanced Directive Advanced Directive Advanced Directive
--- OUTSIDE RECORDS SUMMARY | 2023-01-03 01:46 | External Medical Summary | Summary of Care ---
Author Name Unknown Organization [place] [address] Care Team Providers Care Inspection Clerk Name Role Phone Ernesto HENRY MD, Ilya Reid Primary Care Provider [phone] Encounter Details Date Type Department Care Team Description 03/24/2021 Documentation Pediatrics [facility] [address] [facility] [place] [address] Kathe Roberts MD [address] [facility] [place] [address] Allergies No known active allergiesdocumented as of this encounter (statuses as of 03/24/2021) Medications Medication Sig Dispensed Refills Start Date [...] as of this encounter (statuses as of 03/24/2021) Active Problems Problem Noted Date Keratosis pilaris 05/27/2015 Idiopathic scoliosis 05/11/2009 Allergic rhinitis documented as of this encounter (statuses as of 03/24/2021) Resolved Problems Problem Noted Date Resolved Date Mass of right lung 12/19/2017 04/03/2018 Other specified urticaria 07/31/20042016 Asthma with severity to be determined 03/19/2017 Overview: ICD-10 update of inactive term documented as of this encounter (statuses as of 03/24/2021) Immunizations Name Administration Dates Next Due DTWP [...] as of this encounter Progress Notes * Kathe Roberts MD - 03/24/2021 2:23 PM EST Here for baby's WCC. Phoenix Depression Scale: Phoenix Depression Scale Total: 5 Phoenix suicide question and score: Score of 3 = Yes, quite often. Score of 2 = Sometimes. Score of 1 = Hardly ever The thought of harming myself has occurred to me.: 0 documented in this encounter Plan of Treatment [...] Documents on File Type Date Recorded Patient Corporate Operations Compliance Manager Expl 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 Advanced Directive Advanced Directive Advanced Directive Advanced Directive Advanced Directive Care Teams Inspection Clerk Relationship Specialty Start Date End Date Ilya Orozco III, MD [address] [place] [address], [place] [address] PCP - General 07/30/05 documented as of this encounter
--- OUTSIDE RECORDS SUMMARY | 2023-01-03 01:46 | External Medical Summary | Summary of Care ---
Author Name Unknown Organization [place] [address] Care Team Providers Care Banking Paralegal Name Role Phone Ernesto HENRY MD, Ilya Reid Primary Care Provider [phone] Reason for Visit * Reason Onset Date Comments Medication Refill 08/16/2020 Encounter Details Date Type Department Care Team Description 08/16/2020 Refill Family Practice [facility] [address] [facility] [place] [address] Ilya Orozco III, MD [address] [place] [address] [phone] Acute non-recurrent maxillary sinusitis Allergies No Known Active Allergiesdocumented as of this encounter (statuses as of 08/17/2020) Medications Medication Sig Dispensed Refills Start Date [...] for Wheezing. 18 g 1 08/06/2019 Active medroxyPROGESTER one Acetate 10 MG Oral [...] a day. 18.2 mL 6 08/17/2020 Active fluticasone (FLONASE) 50 MCG/ACT nasal sprayIndications :Acute non-recurrent maxillary sinusitis Administer 2 Sprays into each nostril 2 times a day. 1 Inhaler 5 03/19/2019 08/16/2020 Discontinued (Refill) documented as of this encounter (statuses as of 08/17/2020) Active Problems Problem Noted Date Keratosis pilaris 05/27/2015 Idiopathic scoliosis 05/11/2009 Allergic rhinitis documented as of this encounter (statuses as of 08/17/2020) Resolved Problems Problem Noted Date Resolved Date Mass of right lung 12/19/2017 04/03/2018 Other specified urticaria 07/31/20042016 Asthma with severity to be determined 03/19/2017 Overview: ICD-10 update of inactive term documented as of this encounter (statuses as of 08/17/2020) Immunizations Name Administration Dates Next Due DTWP - Dipth/Tet/Whole Cell Pertussis ,03/18/1992,01/26/1992,11/08 DTaP - Dipth/Tet/Acell Pertussis 10/09/1996 Haemophilus B (HIB) 12/22/1992, 2,01/26/1992,11/08 Hepatitis B Vaccine 03/18/1992,1991,1991 Influenza Virus Vaccine 02/05/1996,02/19/1995 MMR - Measles/Mumps/Rubella Vaccine 10/09/1996,0 12/22/1992 Meningococcal Conjugate Vacc ine (Menactra/Menveo) 05/11/2009 OPV - Polio Virus Vaccine (Oral) 997,12/22/1992,01/26/1992,11/08 PPD 10/09/1996 Seasonal Influenza, Quadriva lent, No Preserve, 6 Mons & Above, IM 03/01/2020,01/28/2019,01/22/2018 Seasonal Influenza, Quadriva lent, No Preserve, IM 03/11/2017,03/14/2015 Seasonal Influenza, Trivalen t, with Preserve, 3yr & Above, Split 03/09/2014,03/26/2013,02/12/2011,05/11,02/14/2004,03/10/2003,02/26/2002 ,03/13/2001,04/03/2000,02/09/1999 TD - Tetanus/Diptheria (ADULT) 04/02/2003 [...] encounter Miscellaneous Notes * Telephone Encounter - Rekha Raman PA-C - 08/17/2020 12:26 PM EDT Signed Prescriptions: Disp Refills Fluticasone Propionate 50 MCG/ACT Nasal Bryant*18.2 mL6 Sig: Administer 2 Sprays into each nostril 2 times a day. Authorizing Provider: REKHA RAMAN * Telephone Encounter - Latrice Mccarty LPN - 08/17/2020 7:25 AM EDT Pending Prescriptions: Disp Refills Fluticasone Propionate 50 MCG/ACT Nasal S* Sig: Administer 2 Sprays into each nostril 2 times a day. Last Office/Telemedicine Visit: 07/06/2020 Next Office Visit: No Future Appointments Last date the medication was ordered: 03/19/19 Patient Active Problem List Diagnosis Code Allergic rhinitis J30.9 Idiopathic scoliosis M41.20 Keratosis pilaris L85.8 Labs: Lab Results Component Value Date/Time CREATININE - [facility] 0.7 09/20/2016 07:14 AM Lab Results Component Value Date/Time POTASSIUM - [facility] 4.1 09/20/2016 07:14 AM Lab Results Component Value Date/Time TSH - [facility] 1.85 05/23/2017 04:41 PM TSH - OUT[facility]IDE LAB 1.00 03/01/2020 No results found for: LDL Lab Results Component Value Date/Time ALT - [facility] 13 07/16/2013 09:10 AM Hemoglobin AIC Results: Lab Results Component Value Date/Time HEMOGLOBIN A1C - [facility] 4.7 05/23/2011 01:11 PM * Telephone Encounter - Latrice Mccarty LPN - 08/17/2020 7:24 AM EDT Message from [employer]: Refills have been requested for the following medications: fluticasone (FLONASE) 50 MCG/ACT nasal spray [Ilya Orozco III, MD] Patient Comment: Lost original request Preferred pharmacy: [id number] documented in this encounter Plan of Treatment Health Maintenance Due Date Last Done Comments Pneumococcal Vaccine: Pediat rics (0 to 5 Years) and At-Risk Patients (6 to 64 Years) (1 of 2 - PPSV23) 09/08/1997 PAP SMEAR-EVERY 3 YRS,AGES 21-65 08/19/2022 08/20/2019, 03/20/2017, 03/19/2017, Additional history exists DTaP,Tdap,and Td Vaccines (7 - Td) 11/20/2022 11/20/2012, 04/02/2003, 10/09/1996, Additional history exists MENINGOCOCCAL (MENACTRA/MENVEO) Completed 0 Influenza Vaccine (FLU shot) Completed , 01/28/2019, 01/22/2018, Additional history exists documented as of this encounter Implants Not on filedocumented as of this encounter Visit Diagnoses Diagnosis Acute non-recurrent maxillary sinusitis documented in this encounter Advance Directives Documents on File Type Date Recorded Patient Caretaker Grounds Expl 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 Advanced Directive Advanced Directive Advanced Directive Advanced Directive Advanced Directive
--- OUTSIDE RECORDS SUMMARY | 2023-01-03 01:46 | External Medical Summary | Summary of Care ---
Author Name Unknown Organization [place] [address] Care Team Providers Care Maintenance Shop Manager Name Role Phone Lamine August Viry TAYLOR Primary Care Provider [phone] Reason for Referral * Precert (Within 10 days (routine)) - Authorized Specialty Diagnoses / Procedures Referred By Jean-Pierre carpio Referred To Contact Radiology Diagnoses Sinus pressure DNS (deviated nasal septum) Procedures CT SINUS FUSION WO CONTRAST Yifan Tapai MD [address] [place] [id number] Referral ID Status Reason Start Date Expiration Date V isits Requested Visits Authorized [id number] Authorized 08/22/2021 11/20/2021 1 1 Reason for Visit * Reason Comments Sinus Problem * Evaluate & Treat - Unlimited Visits (Within 30 days (routine)) - Pending Review Specialty Diagnoses / Procedures Referred By Jean-Pierre carpio Referred To Contact Otolaryngology Diagnoses Chronic maxillary sinusitis Lamine August BRANDON Baires [address] [place] [address] Referral ID Status Reason Start Date Expiration Date Visits Requested Visits Authorized [id number] Pending Review Specialty Services Required 08/03/2021 1 1 Encounter Details Date Type Department Care Team Description 08/22/2021 Office Visit Otolaryngology [facility] [address] [address] Yifan Tapia MD [address] [phone] Sinus pressure*; DNS (deviated nasal septum) Allergies No known active allergiesdocumented as of this encounter (statuses as of 08/22/2021) Medications Medication Sig Dispensed Refills Start Date [...] as of this encounter (statuses as of 08/22/2021) Active Problems Problem Noted Date Keratosis pilaris 05/27/2015 Idiopathic scoliosis 05/11/2009 Allergic rhinitis documented as of this encounter (statuses as of 08/22/2021) Resolved Problems Problem Noted Date Resolved Date Mass of right lung 12/19/2017 04/03/2018 Other specified urticaria 07/31/20042016 Asthma with severity to be determined 03/19/2017 Overview: ICD-10 update of inactive term documented as of this encounter (statuses as of 08/22/2021) Immunizations Name Administration Dates Next Due COVID-19 mRNA, LNP-s, No Pre serve, 2-Dose Series (TrackIF) 04/18/2021,03/28/2021 DTWP - Dipth/Tet/Whole Cell Pertussis ,03/18/1992,01/26/1992,11/08 [...] Sign Reading Time Taken Comments Blood Pressure - - Pulse - - Temperature 36.2 C (97.2 F) 08/22/2021 10:50 AM E DT Respiratory Rate - - Oxygen Saturation - - Inhaled Oxygen Concentration - - Weight 64.5 kg (142 lb 3.2 oz) 08/22/2021 10:50 AM EDT Height - - Body Mass Index 26.87 08/03/2021 1:48 PM EDT documented in this encounter Patient Instructions * Patient Instructions* Yifan Tapia MD - 08/22/2021 11:19 AM EDT Here is a REVIEW of our VISIT: I did a complete Head & Neck exam with additional focus on your ears - Nose & Throat I used a Fiber-Optic Endoscope to look further and deeper to check your NOSE & THROAT. I did NOT find any evidence of a Growth NOR Tumor. That is GREAT NEWS ! AND you QUIT SMOKING ! But I also did NOT see any signs of an active infection - so I am not starting you on any antibiotics - but will order a CT SCAN of your SINUSES. KEEP taking your CLARITIN & FLONASE - until I see you back next month. Thank you for the opportunity to participate in your healthcare. Sincerely, Yifan Tapia MD, FACS, EUSEBIO Otolaryngology - Head & Neck Surgery 08/22/2021 11:19 AM documented in this encounter Progress Notes * Yifan Tapia MD - 08/22/2021 4:37 PM EDT Otolaryngology - Head & Neck Surgery Chief Complaint: Sinus Problem History of Present illness: Aria Hooks is a 30 year old female who presents for a chief complaint of recurring sinus infections - almost on a monthly basis over the past year.. Patient states over the last year she has hadrecurring sinus infections usually presenting as a head cold with nasal phlegm and postnasal drip -pressure about the eyes. She has had multiple courses of different antibiotics usually help resolve the sinus infection but within 1-2 weeks her symptoms return of nasal congestion rhinitis and postnasal drip. She denies any environmental allergies and was tested at ages 11 and this was negative. However thepatient uses Flonase on a daily basis and uses Claritin as well. She denies any migraine history. She smokes cigarettes for about 6 months last year and quit Past MedHx, Meds, and allergies are reviewed in [facility]. Patient Active Problem List Diagnosis Code Allergic rhinitis J30.9 Idiopathic scoliosis M41.20 Keratosis pilaris L85.8 Current Outpatient Medications Medication Sig Dispense Refill busPIRone (BUSPAR) 5 MG Tablet Take 1 Tab by mouth 2 times a day. 60 Tab 5 Albuterol Sulfate (ALBUTEROL HFA) 108 (90 BASE) MCG/ACT inhaler Inhale 2 Puffs by mouth every 4hours as needed for Wheezing. 18 g 1 Fluticasone Propionate 50 MCG/ACT Nasal Suspension (Flonase) Administer 2 Sprays into each nostril 2 times a day. 18.2 mL 6 FLUoxetine HCl 20 MG Oral Capsule (PROzac) TAKE 1 CAPSULE BY MOUTH ONCE DAILY 90 Capsule 3 No current facility-administered medications for this visit. ALLERGIES: Review of patient's allergies indicates: No Known Allergies ROS: - Constitutional: NO wt loss, fatigue, or malaise NO night sweats, fevers, chills. HENT: NO difficulty chewing or swallowing NO vertigo or dizziness Neuro: NO Numbness or paresis Eyes: NO blurred vision or discharge Cardio: NO chest pain, Resp: NO difficulty breathing GI: NO nausea, vomiting, diarrhea or blood in the stool Muscle/Joint: No pain of extremities. Psych: No anxiety Exam: Temp 36.2 C (97.2 F) (Tympanic) | Wt 64.5 kg (142 lb 3.2 oz) | BMI 26.87 kg/m | BSA 1.67 m General Disposition: Alert, NAD The following areas were examined and were noted below: Constitutional: General appearance of patient, assessment of ability to communicate and quality of voice - NO Acute Distress / Good Head and Face: Inspection of overall appearance, palpation of sinuses for tenderness, examination of salivary glands, assessment of facial strength NORMAL - NO facial weakness NO tenderness Eyes: ocular motility, general appearance - NORMAL - Vision intact. NO diplopia Ears: Otoscopic examination of external auditory canals and tympanic membranes, pneumo-otoscopy/TM mobility, assessment of hearing, external inspection of ears NORMAL - Clear Canals, intact tympanic membranes, Clear Middle ears Oral cavity/Oropharynx: Inspection of lips, teeth, gums, oral mucosa, hard and soft palates, tongue, tonsils and posterior pharynx NO Lesions, Tongue normal, Floor of Mouth Clear Tonsils symmetrical in size. +1 Uvula midline. No lesions PROCEDURE: Fiberoptic examination of the NASAL CAVITY and Larynx was performed, with the Nasal Cavity and Pharynx being inspected as part of the endoscopic exam. The nose was first topically decongested with topical oxymetazoline 0.05% spray and topically anesthetized with topical Lidocaine 4% spray. Fiberoptic examination results / exam findings are The patient tolerated the procedure well. Patient should refrain from eating or drinking for 30-45 minutes due to anesthesia of the pharynx and possible interference with swallowing. COMPLETE FINDINGS: [See Below] Nose: Nasal cavity: There are no masses, polyps, purulence or other lesions visualized Septum - Deviated right - With a SPUR <// And on the LEFT posteriorly there is another spur >. Turbinates NORMAL Mullin, moist without lesions. - NO polyposis, NO mucopus Nasopharynx: - Small / Average Adenoids, no infection - clear, patent, and Normal - Fossa of [place] - Clear - choanae - clear There are no masses, polyps, purulence or other lesions visualized - eustachian tube orifice(s) - clear Hypopharynx: Base of Tongue: SMOOTH Lingual Tonsils - Vallecula - Clear, NO Lesions Larynx: - Normal anatomy with NORMAL Spoon shaped epiglottis - Arytenoids and aryepiglottic folds; Normal - Vocal cords - clear and mobile - subglottis appears clear - Piriform Sinuses - Clear, NO Lesions - NO pooling of secretions Neck: inspection and palpation of neck anatomy, lymph nodes, salivary glands and thyroid gland. Trachea: Mid-Line NO masses, NO adenopathy Assessment: Encounter Diagnoses Name Primary? Sinus pressure Yes DNS (deviated nasal septum) Allergy symptoms that she is on Flonase and Claritin. Without evidence of sinus infection today this could be Plan: With the patient continue with her daily Flonase and Claritin use. I do not see any evidence of active sinus infection therefore not prescribed any antibiotics. SINUS CT scan is ordered. Patient Instructions Here is a REVIEW of our VISIT: I did a complete Head & Neck exam with additional focus on your ears - Nose & Throat I used a Fiber-Optic Endoscope to look further and deeper to check your NOSE & THROAT. I did NOT find any evidence of a Growth NOR Tumor. That is GREAT NEWS ! AND you QUIT SMOKING ! But I also did NOT see any signs of an active infection - so I am not starting you on any antibiotics - but will order a CT SCAN of your SINUSES. KEEP taking your CLARITIN & FLONASE - until I see you back next month. Thank you for the opportunity to participate in your healthcare. Sincerely, Yifan Tapia MD, FACS, EUSEBIO Otolaryngology - Head & Neck Surgery 08/22/2021 11:19 AM documented in this encounter Nursing Notes * TREY Brooke - 08/22/2021 10:47 AM EDT Aria Hooks is a 30 year old female who presents today for sinus problems. Patient reports Recurrent sinus infections: YES Last infection: ONGOING Allergy testing: YES AT AGE 11 Nasal Congestion: YES, ALL THE TIME Drainage: YES Facial pain YES location SINUS AREA Pressure: YES Headaches: SOMETIMES Loss of smell: NO Loss of taste: NO Nose bleeds: NO Snoring: NO Hx of nasal fracture/facial trauma: NO Past treatment: NO Hx of Imaging: NO Hx of sinus surgery: NO Pt states that she is referred here by PCP. Pt denies of any pain. documented in this encounter Plan of Treatment Upcoming Encounters Date Type Specialty Care Team Description 08/30/2021 Imaging Radiology 09/25/2021 Office Visit Otolaryngology Yifan Tapia MD [address] [phone] Scheduled Orders Name Type Priority Associated Diagnoses Orde r Schedule CT SINUS FUSION WO CONTRAST Medical Imaging Routine Sinus pressure DNS (deviated nasal septum) Expected: 08/22/2021, Expires: 09/21/2022 Health Maintenance Due Date Last Done Comments COVID-19 Vaccine (3 - Booster for Pfizer series) 09/16/2021 04/18/2021, 03/28/2021 Influenza Vaccine (FLU shot) (Season Ended) 2022 03/01/2020, 03/01/2020, 01/28/2019, Additional history exists Depression Screening, Annual for [...] as of this encounter Visit Diagnoses Diagnosis Sinus pressure- Primary Other diseases of nasal cavity and sinuses DNS (deviated nasal septum) Deviated nasal septum documented in this encounter Advance Directives Documents on File Type Date Recorded Patient Civil Structural Engineer Expl 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 Advanced Directive Advanced Directive Advanced Directive Advanced Directive Advanced Directive Advanced Directive Advanced Directive Advanced Directive Advanced Directive Advanced Directive Advanced Directive Advanced Directive Care Teams Maintenance Shop Manager Relationship Specialty Start Date End Date LamineAugust BRANDON Baires [address] [place] [address] PCP - General Physician Finished Carpet Inspector 05/12/21 documented as of this encounter"
--- OUTSIDE RECORDS SUMMARY | 2023-01-03 01:46 | External Medical Summary | Summary of Care ---
Author Name Unknown Organization [place] [address] Care Team Providers Care Stab Setter And Driller Name Role Phone Ernesto HENRY MD, Ilya Reid Primary Care Provider [phone] Encounter Details Date Type Department Care Team Description 03/12/2021 Scan Encounter [facility] [address] [place] [address] Ilya Orozco III, MD [address] [place] [address] <No scans attached> Allergies No known active allergiesdocumented as of this encounter (statuses as of 03/14/2021) Medications Medication Sig Dispensed Refills Start Date [...] as of this encounter (statuses as of 03/14/2021) Active Problems Problem Noted Date Keratosis pilaris 05/27/2015 Idiopathic scoliosis 05/11/2009 Allergic rhinitis documented as of this encounter (statuses as of 03/14/2021) Resolved Problems Problem Noted Date Resolved Date Mass of right lung 12/19/2017 04/03/2018 Other specified urticaria 07/31/20042016 Asthma with severity to be determined 03/19/2017 Overview: ICD-10 update of inactive term documented as of this encounter (statuses as of 03/14/2021) Immunizations Name Administration Dates Next Due DTWP [...] Documents on File Type Date Recorded Patient Train Inspector Expl 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 Advanced Directive Advanced Directive Advanced Directive Advanced Directive Advanced Directive Care Teams Stab Setter And Driller Relationship Specialty Start Date End Date Ernesto III, Ilya Reid MD [address] [place] [id number] PCP - General 07/30/05 documented as of this encounter
--- OUTSIDE RECORDS SUMMARY | 2023-01-03 01:46 | External Medical Summary | Summary of Care ---
Author Name Unknown Organization [place] [address] Care Team Providers Care Slime Plant Operator Helper Name Role Phone Rekha Raman PA-C Primary Care Provider [phone] Reason for Visit * Reason Onset Date Comments FYI 05/12/202105/12 Encounter Details Date Type Department Care Team Description 05/12/2021 Telephone Family Practice [facility] [place] [address] [facility] [place] [address] Rekha Raman PA-C [address] [facility] [place] [address] FYI (05/12) Allergies No known active allergiesdocumented as of [...] mRNA, LNP-s, No Pre serve, 2-Dose Series (Sedicidodici) 04/18/2021,03/28/2021 DTWP - Dipth/Tet/Whole Cell Pertussis ,03/18/1992,01/26/1992,11/08 [...] encounter Miscellaneous Notes * Telephone Encounter - Faith Contreras LPN - 05/16/2021 5:42 PM EST Sent [employer] message. * Telephone Encounter - Monse Warren LPN - 05/12/2021 1:31 PM EST Called patient, no answer, left message to return our call at [phone]. Calling to ask if this was a home covid test that came back positive. * Telephone Encounter - LEONOR Gamboa - 05/12/2021 12:27 PM EST Patient called wanted to let pcp know that she tested positive last night 05/11/2021 for covid. documented in this encounter Plan of Treatment Upcoming Encounters Date Type Specialty Care Team Description 06/28/2021 Office Visit Family Medicine Rekha Raman PA-C [address] [place] [address] Health Maintenance Due Date Last Done Comments [...] Documents on File Type Date Recorded Patient Mill Beam Fitter Expl 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 Advanced Directive Advanced Directive Advanced Directive Advanced Directive Advanced Directive Advanced Directive Advanced Directive Advanced Directive Care Teams Slime Plant Operator Helper Relationship Specialty Start Date End Date Rekha Raman PA-C [address] [place] [address] PCP - General Physician Cloth Boil Off Machine Operator 05/12/21 documented as of this encounter
--- OUTSIDE RECORDS SUMMARY | 2023-01-03 01:47 | External Medical Summary ---
Author Name Unknown Address Unknown Organization [facility] USE ONLY!!! Laboratory Report Ordering Provider Test Date Status DOT CARR 08/20/2019 10:01:00 Final Observation Date Value Abnormality Reference (Units) Status Source 08/20/2019 10:01 VAGINAL Final C GLABRATA RESULT 08/21/2019 15:51 NEGATIVE NEG Final C ALBICANS RESULT 08/21/2019 15:51 NEGATIVE NEG Final T VAGINALIS RESULT 08/21/2019 15:51 NEGATIVE NEG Final G VAGINALIS RESULT 08/21/2019 15:51 POSITIVE Abnormal NEG Final COMMENT 08/21/2019 15:51 Cassia glabrata not detected by PCR Final COMMENT 08/21/2019 15:51 Cassia albicans not detected by PCR Final COMMENT 08/21/2019 15:51 Trichomonas vaginalis not detected by PCR Final COMMENT 08/21/2019 15:51 Gardnerella vaginalis detected by PCR Final Performing Location [facility] USE ONLY!!!
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
--- OUTSIDE RECORDS SUMMARY | 2023-01-03 01:47 | External Medical Summary ---
Author Name Unknown Address [facility] [place] [address] Phone Organization [id number] [id number] Laboratory Report Ordering Provider Test Date Status BEKA SPARKS III 05/04/2020 12:45:00 Final Observation Date Value Abnormality Reference (Units ) Status Choriogonadotropin.intact +beta subunit [Units/volume] in Serum or Plasma 05/04/2020 22:09 <0.1 0-1 (mIU/mL) Final Performing Location [address] [address]
--- OUTSIDE RECORDS SUMMARY | 2023-01-03 01:47 | External Medical Summary | Summary of Care ---
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 [address] [place] [address] Rekha Raman PA-C [address] [place] [address] [phone] Amenorrhea*; Nasal congestion Allergies No Known Active Allergiesdocumented as of this encounter (statuses as of 05/10/2020) Medications Medication Sig Dispensed Refills Start Date [...] Wheezing. 18 g 1 08/06/2019 Active FLUoxetine (PROZAC) 20 MG Capsule TAKE ONE CAPSULE BY MOUTH ONE TIME DAILY 90 Cap 1 10/23/2019 Active medroxyPROGESTERone Acetate 10 MG Oral Tablet (Provera)Indication s:Amenorrhea Take 1 Tab by mouth daily. 10 Tab 2 05/10/2020 Active documented as of this encounter (statuses as of 05/10/2020) Active Problems Problem Noted Date Keratosis pilaris 05/27/2015 Idiopathic scoliosis 05/11/2009 Allergic rhinitis documented as of this encounter (statuses as of 05/10/2020) Resolved Problems Problem Noted Date Resolved Date Mass of right lung 12/19/2017 04/03/2018 Other specified urticaria 07/31/20042016 Asthma with severity to be determined 03/19/2017 Overview: ICD-10 update of inactive term documented as of this encounter (statuses as of 05/10/2020) Immunizations Name Administration Dates Next Due DTWP [...] Sign Reading Time Taken Comments Blood Pressure 102/64 05/10/2020 10:11 AM EST Pulse 78 05/10/2020 10:11 AM EST Temperature 37.1 C (98.8 F) 05/10/2020 10:[address] Respiratory Rate 16 05/10/2020 10:11 AM EST Oxygen Saturation 98% 05/10/2020 10:11 AM EST Inhaled Oxygen Concentration - - Weight 59.5 kg (131 lb 1.9 oz) 05/10/2020 10:11 AM EST Height - - Body Mass Index 23.98 03/01/2020 8:40 AM EDT documented in this encounter Progress Notes * Rekha Raman PA-C - 05/10/2020 6:17 PM EST SUBJECTIVE: Aria Melgar is a 29 year old female. Chief Complaint Patient presents with Acute HPI: Patient is a 29 year old female who presents with amenorrhea. Trying to get . Stopped bcps in November. Had menses in January, February, and March. She has taken 5 home tests which were negative . We have done a serum which was also negative. Has been monogamous since testingin August. Has had normal blood tests too. Has been having nasal congestion which is bloody. Patient Active Problem List Diagnosis Code Allergic rhinitis J30.9 Idiopathic scoliosis M41.20 Keratosis pilaris L85.8 Current Outpatient Medications Medication Sig Dispense Refill medroxyPROGESTERone Acetate 10 MG Oral Tablet (Provera) Take 1 Tab by mouth daily. 10 Tab 2 FLUoxetine (PROZAC) 20 MG Capsule TAKE ONE CAPSULE BY MOUTH ONE TIME DAILY 90 Cap 1 Albuterol Sulfate (ALBUTEROL HFA) 108 (90 BASE) [...] twice daily Saturday thru 45 g 0 Review of patient's allergies indicates: No Known Allergies OBJECTIVE: BP 102/64 | Pulse 78 | Temp 37.1 C (98.8 F) (Tympanic) | Resp 16 | Wt 59.5 kg (131 lb 1.9 oz) |SpO2 98% | BMI 23.98 kg/m | BSA 1.61 m PHYSICAL EXAM: General: alert, healthy, no distress, well nourished, well developed, comfortable and cooperative Ears: External ears normal, Canals clear, TM's Normal Nose: no mucosal erythema, no mucosal edema, [...] diaphragmatic excursion normal, lungs clear to auscultation Abdomen: abdomen soft, non-tender, normal bowel sounds, no masses or organomegaly, no rebound or guarding, no CVA tenderness, no bladder distention identified and no bruits Back: back symmetric, no curvature, no costovertebral angle tenderness, range of motion is normal, no skin lesions, erythema or scars, no tenderness to percussion or palpation, Normal heel walk and toe walk, without evidence of muscle weakness ASSESSMENT: N91.2 Amenorrhea (primary encounter diagnosis) R09.81 Nasal congestion PLAN: Amenorrhea (Primary) - HCG QUALITATIVE, URINE - medroxyPROGESTERone Acetate 10 MG Oral Tablet (Provera); Take 1 Tab by mouth daily. Nasal congestion Follow up as needed. Rekha Raman PA-C documented in this encounter Nursing Notes * Carolina Santos LPN - 05/10/2020 10:10 AM EST Pt presents today with complaints of being 21 days late of her menstrual cycle. Pt not . documented in this encounter Plan of Treatment [...] Not on filedocumented as of this encounter Procedures Procedure Name Priority Date/Time Associated Diagnosis Comments SCR URINE Routine 05/10/2020 Amenorrhea documented in this encounter Results * SCR URINE (05/10/2020) HCG BETA,URINE Negative NEG - NEG [facility] PROCED CONTROL VALID? 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
--- OUTSIDE RECORDS SUMMARY | 2023-01-03 01:47 | External Medical Summary | Summary of Care ---
Author Name Unknown Organization [place] [address] Care Team Providers Care Pulmonology Technician Name Role Phone Ilya Orozco MD Primary Care Provider [phone] Reason for Visit * Reason Comments Acute Encounter Details Date Type Department Care Team Description 08/20/2019 Office Visit Family Practice [facility] [address] [place] [address] Denisse Kimbrough PA-C [address] [place], [place] [id number] High risk heterosexual behavior*; Vaginal discharge; Pap smear for cervical cancer screening Allergies No Known Allergiesdocumented as of this encounter (statuses as of 08/20/2019) Medications Medication Sig Dispensed Refills Start Date End Date Status triamcinolone acetonide (ARISTOCORT) 0.1 % cream Apply to rash on the back and abdomen twice daily Saturday thru 45 g 0 03/28/2015 Active busPIRone (BUSPAR) 5 MG Tablet Take 1 Tab by mouth 2 times a day. 60 Tab 5 09/01/2018 Active FLUoxetine (PROZAC) 10 MG CapsuleIndications: NAA (generalized anxiety disorder) Take 1 Cap by mouth daily. Daily total of 30 mg. .Add to 20 mg tab 30 Cap 11 09/23/2018 Active Additional Information Patient not taking. Reported on 08/20/2019 9:03 AM FLUoxetine (PROZAC) 20 MG Capsule TAKE ONE CAPSULE BY MOUTH ONE TIME DAILY 30 Cap 10 09/30/2018 Active fluticasone (FLONASE) 50 MCG/ACT nasal sprayIndications:Ac meghan non-recurrent maxillary sinusitis Administer 2 Sprays into each nostril 2 times a day. 1 Inhaler 5 03/19/2019 Active TRI-LINYAH 0.18/0.215/0.25 MG-35 MCG per Tablet TAKE ONE TABLET BY MOUTH DAILY 84 Tab 2 06/15/2019 Active Albuterol Sulfate (ALBUTEROL HFA) 108 (90 BASE) MCG/ACT inhalerIndications: Acute non-recurrent maxillary sinusitis Inhale 2 Puffs by mouth every 4 hours as needed for Wheezing. 18 g 1 08/06/2019 Active fluconazole (DIFLUCAN) 150 MG Tablet 1 tab every 3 days 3 Tab 0 08/12/2019 Active documented as of this encounter (statuses as of 08/20/2019) Active Problems Problem Noted Date Keratosis pilaris 05/27/2015 Idiopathic scoliosis 05/11/2009 Allergic rhinitis documented as of this encounter (statuses as of 08/20/2019) Resolved Problems Problem Noted Date Resolved Date Mass of right lung 12/19/2017 04/03/2018 Other specified urticaria 07/31/20042016 Asthma with severity to be determined 03/19/2017 Overview: ICD-10 update of inactive term documented as of this encounter (statuses as of 08/20/2019) Immunizations Name Administration Dates Next Due DTWP - Dipth/Tet/Whole Cell Pertussis ,03/18/1992,01/26/1992,11/08 DTaP - Dipth/Tet/Acell Pertussis 10/09/1996 Haemophilus B (HIB) 12/22/1992, 2,01/26/1992,11/08 Hepatitis B Vaccine 03/18/1992,1991,1991 Influenza Virus Vaccine 02/05/1996,02/19/1995 MMR - Measles/Mumps/Rubella Vaccine 10/09/1996,0 12/22/1992 Meningococcal Conjugate Vacc ine (Menactra/Menveo) 05/11/2009 OPV - Polio Virus Vaccine (Oral) 997,12/22/1992,01/26/1992,11/08 PPD 10/09/1996 Seasonal Influenza, Quadriva lent, No Preserve, 6 Mons & Above, IM 01/28/2019,01/22/2018 Seasonal Influenza, Quadriva lent, No Preserve, IM [...] file Not on file Not on file Travel History Travel Start Travel End COVID-19 Exposure Response Date Recorded In the last month, have you been in contact with someone who was confirmed or suspected to have Coronavirus / COVID-19? No / Unsure 08/20/2019 9:01 AM EDT documented as of this encounter Last Filed Vital Signs Vital Sign Reading Time Taken Comments Blood Pressure 102/70 08/20/2019 9:03 AM EDT Pulse 84 08/20/2019 9:03 AM EDT Temperature 37.2 C (99 F) 08/20/2019 9:03 AM EDT Respiratory Rate 16 08/20/2019 9:03 AM EDT Oxygen Saturation 99% 08/20/2019 9:03 AM EDT Inhaled Oxygen Concentration - - Weight 61.4 kg (135 lb 6.4 oz) 08/20/2019 9:03 A M EDT Height - - Body Mass Index 24.76 01/28/2019 11:07 AM EDT documented in this encounter Patient Instructions * Patient Instructions* Denisse Kimbrough PA-C - 08/20/2019 9:39 AM EDT Vaginal Infection: Trichomoniasis Whether or not he has symptoms, your partner will also need to be treated for trichomoniasis. Trichomoniasis is often called trich. It is caused by a parasite that is passed during sex. Men with trich often dont have any symptoms. So they dont know that they are infected. In women, it can take weeks or months before symptoms develop. Symptoms of trichomoniasis Foamy mendoza or yellow-green discharge Foul odor Intense vaginal itching, burning, redness, and swelling at opening of vagina Pain during sex or urination Bleeding after sex Treating trichomoniasis Trich is treated with antibiotics. Be sure that you: Finish all of your medicine. This is true even if your symptoms go away. Avoid alcohol until youre done with all your medicine. Tell your partner so that he can seek treatment and be tested for other STDs. Avoid sex until you and your partner are both done with treatment. Why treatment matters Untreated trich can lead to problems. These include: Increased risk of delivery if you are An abnormal Pap test result Possible increased risk of pelvic inflammatory disease (PID) Date Last Reviewed: 07/04/201619993772-6223 [employer]. [address] [place] [address]. All rights reserved. This information is not intended as a substitute for professional medical care. Always follow your healthcare professional's instructions. Gonorrhea Gonorrhea is a bacterial infection that is transmitted sexually. Many women and some men who have gonorrhea do not have any signs or symptoms. If not treated,gonorrhea can cause swollen and painfuljoints and permanent damage to your reproductive organs. It can also makea man or woman unable tohave children. If a woman has gonorrhea,she can infect her baby during childbirth. Gonorrhea is also called the clap or the drip. Symptoms In men: Pain or burning when urinating Watery,milky,or yellow discharge (drip) from the penis or anus In women: Yellow or white discharge (fluid) from the vagina or anus Bleeding between periods Treatment Gonorrhea can be cured quickly with antibiotics. If you are being treated,your partner should also be checked by a healthcare provider. Dont have sex while you are being treated. Prevention As with all STDs,knowing your partners sexual history is a big step toward preventing gonorrhea. Know the signs and symptoms of the infection. And use latex condoms to reduce your risk. Resources [employer] STD Hotline [phone] www.ashastd.org Centers for Disease Control and Prevention 831-737-8709 www.cdc.gov/std Date Last Reviewed: 04/05/201619999165-6404 [employer]. [address] [place] [address]. All rights reserved. This information is not intended as a substitute for professional medical care. Always follow your healthcare professional's instructions. Chlamydia Chlamydia is a very common sexually transmitted disease (STD). Most people do not have symptoms. Because of this, chlamydia may not be noticed until it causes severe problems. Left untreated,this infection can cause women and men to become sterile. This means they will not be able to have children. Symptoms Many people with chlamydia have no symptoms. Women are more likely than men not to have symptoms. If symptoms show up in women, they include: Abnormal vaginal discharge Bleeding between periods Pain or burning during urination If symptoms show up in men, they include: Clear discharge (drip) from the penis or anus Pain or burning during urination These symptoms usually disappear after a few weeks, whether or not you are treated. However, if youare not treated, the chlamydia will still be present and can cause long-term problems. Potential problems If the infection is not treated, it can lead to more serious health problems. In women, this can bepelvic inflammatory disease (PID). PID can make a woman sterile. It can also cause an ectopic (tubal) . This type of cannot be carried to term. Symptoms of PID include fever, pain during sex, and pain in the belly. Sexually active women should get checked for chlamydia regularly. This can help prevent PID. Treatment When found early,chlamydia can be treated. It can be cured with antibiotic medicines. If you haveit, tell your partner right away. Because women often dont have symptoms, men should ask their partners to get tested. Prevention Know your partners history. Protect yourself by using a latex condom whenever you have sex. If you are ,take extra care to get proper treatment. Untreated chlamydia in a woman can pass the infection on to the baby, causing possible eye,ear,or lung problems. There is also the possibility of a premature delivery. Resources [employer] STD Hotline 531-019-4217 www.[employer]ProductBiod.[employer] Centers for Disease Control and Prevention 400-368-3645 www.cdc.gov/std Date Last Reviewed: 04/05/201619998458-8368 [employer]. [address] [place] [address], [place] [address]. All rights reserved. This information is not intended as a substitute for professional medical care. Always follow your healthcare professional's instructions. Preventing Vaginitis Use mild, unscented soap when you bathe or shower to avoid irritating your vagina. Vaginitis is irritation or infection of the vagina or vulva(the outside opening of the vagina).Vaginitis can be caused by bacteria, viruses, parasites, or yeast. Chemicals (such as in perfumes orsoaps or in spermicides) can sometimes be a cause. Vaginitis can be caused by hormone changes in pre gnancy or with menopause.You can help prevent vaginitis. Follow the tips below. And see your healthcare provider if you have any symptoms. Hygiene Avoid chemicals. Do not use vaginal sprays. Do not use scented toilet paper or tampons that are scented. Sprays and scents have chemicals that can irritate your vagina. Do not douche unless you are told to by your healthcare provider. Douching is rarely needed. Andit upsets the normal balance in the vagina. Wash yourself well. Wash the outer vaginal area (vulva) every day with mild, unscented soap. Keep it as dry as possible. Wipe correctly. Make sure to wipe from front to back after a bowel movement. This helps keep from spreading bacteria from your anus to your vagina. Change your tampon often. During your period, make sure to change your tampon as often as directed on the package. This allows the normal flow of vaginal discharge and blood. Lifestyle Limit your number of sexual partners. The more partners you have, the greater your risk of infection. Using condoms helps reduce your risk. Get enough sleep. Sleep helps keep your bodys immune system healthy. This helps you fight infection. Lose weight, if needed. Excess weight can reduce air circulation around your vagina. This can increase your risk of infection. Exercise regularly. Regular activity helps keep your body healthy. Take antibiotics only as directed.Antibiotics can change the normal chemical balance in the vagina. Clothing Dont sit in wet clothes. Yeast thrives when its warm and damp. Dont wear tight pants. And dont wear tights, leggings, or hose without a cotton crotch. These types of clothing trap warmth and moisture. Wear cotton underwear. Cotton lets air circulate around the vagina. Symptoms of vaginitis Irritation, swelling, or itching of the genital area Vaginal discharge Bad vaginal odor Pain or burning during urination Date Last Reviewed: 04/05/201619994133-9743 [employer]. [address] [place] [address]. All rights reserved. This information is not intended as a substitute for professional medical care. Always follow your healthcare professional's instructions. documented in this encounter Progress Notes * Denisse Kimbrough PA-C - 08/20/2019 9:10 AM EDT CC: Discharge Nursing Notes: Delmy Hillman, [facility] 08/20/19 0904 Signed Pt presents today with possible yeast infection. States August prescribed Diflucan and finished prescription. No relief. States she has had two different partners within a couple of weeks. States "I noticed a green discharge on Saturday and Saturday." HPI: Aria Melgar is a 28 year old female who presents with symptoms including vaginal discharge for 1 week. Last week Saturday, thought she had a yeas infection. Took Diflucan x three. Last one two days ago. Noticed a mint green discharge. Never had this before. Two days ago sxs still persisted. Still had discomfort and discharge. Has had 2 new sexual partners over the last month or so. One used a condom and one did not. Most recent intercourse was about a week ago. Has not discussed sxs with male partners. Denies fever, chills, sweats, abd pain, dysuria, frequency or urgency. Pt has tried OTCs, including: nothing ROS: Please see HPI for pertinent positives and negatives, otherwise pt denies additional complaints. History: Past Medical History: Diagnosis Date Allergic rhinitis Status asthmaticus September 1994 Hospitalized at [facility] Varicella without complication May 1994 Past Surgical History: Procedure Laterality Date DENTAL SURGERY PROCEDURE NEC Dental Surgery Procedure NONE Social History Tobacco Use Smoking status: Current Some Day Smoker Smokeless tobacco: Never Used Tobacco comment: Passive smoke exposure at fathers every other weekend. Substance Use Topics Alcohol use: Yes Comment: ocassional Vaping/E-Cigarette Use Vaping/E-Cigarette Use Never User Passive Exposure No Counseling Given? No Vaping/E-Cigarette Substances Vaping/E-Cigarette Devices Social History Substance and Sexual Activity Drug Use No Comment: denies Family History Problem Relation Age of Onset Cancer Mother precancerous cervical cancer Musculo-skeletal Disorder Mother back No Past Hx Father Heart Disorder Grandfather (Paternal) Asthma Other Cancer Grandmother (Paternal) lung Cancer Aunt (Unspecified) paternal aunt Immunization History Administered Date(s) Administered DTWP - Dipth/Tet/Whole Cell Pertussis 1991, 01/26/1992, 03/18/1992, 12/22/1992 DTaP - Dipth/Tet/Acell Pertussis 10/09/1996 Haemophilus B (HIB) 1991, 01/26/1992, 03/18/1992, 12/22/1992 Hepatitis B Vaccine 1991, 1991, 03/18/1992 Influenza Virus Vaccine 02/19/1995, 02/05/1996 MMR - Measles/Mumps/Rubella Vaccine 12/22/1992, 10/09/1996 Meningococcal Conjugate Vaccine (Menactra/Menveo) 05/11/2009 OPV - Polio Virus Vaccine (Oral) 1991, 01/26/1992, 12/22/1992, 10/09/1996 PPD 10/09/1996 Seasonal Influenza, Quadrivalent, No Preserve, 6 Mons & Above, IM 01/22/2018, 01/28/2019 Seasonal Influenza, Quadrivalent, No Preserve, IM 03/14/2015, 03/11/2017 Seasonal Influenza, Trivalent, with Preserve, 3yr & Above, Split 02/09/1999, 04/03/2000, 03/13/2001, 02/26/2002, 03/10/2003, 02/14/2004, 05/11/2009, 02/12/2011, 03/26/2013, 03/09/2014 TD - Tetanus/Diptheria (ADULT) 04/02/2003 TDAP (age 10 and older)(Boostrix) 11/20/2012 Current Outpatient Medications Medication Sig Dispense Refill fluconazole (DIFLUCAN) 150 MG Tablet 1 tab every 3 days 3 Tab 0 Albuterol Sulfate (ALBUTEROL HFA) 108 (90 BASE) MCG/ACT inhaler Inhale 2 Puffs by mouth every 4hours as needed for Wheezing. 18 g 1 TRI-LINYAH 0.18/0.215/0.25 MG-35 MCG per Tablet TAKE ONE TABLET BY MOUTH DAILY 84 Tab 2 fluticasone (FLONASE) 50 MCG/ACT nasal spray Administer 2 Sprays into each nostril 2 times a day. 1 Inhaler 5 FLUoxetine (PROZAC) 20 MG Capsule TAKE ONE CAPSULE BY MOUTH ONE TIME DAILY 30 Cap 10 busPIRone (BUSPAR) 5 MG Tablet Take 1 Tab by mouth 2 times a day. 60 Tab 5 triamcinolone acetonide (ARISTOCORT) 0.1 % cream Apply to rash on the back and abdomen twice daily Saturday thru 45 g 0 FLUoxetine (PROZAC) 10 MG Capsule Take 1 Cap by mouth daily. Daily total of 30 mg. .Add to 20 mg tab (Patient not taking: Reported on 08/20/2019) 30 Cap 11 Review of patient's allergies indicates: No Known Allergies Patient's past medical, surgical, family, and social history were reviewed. Medications, allergies, immunizations, and health care maintenance screenings were also reviewed. Physical exam: BP 102/70 | Pulse 84 | Temp (Src) 99 (Tympanic) | Resp 16 | Wt 135 lbs 6.4 oz (61.417kg) | BMI 24.76 kg/m | BSA 1.64 m | SaO2 99% GENERAL: alert, healthy, no distress, comfortable and cooperative EYES: EOMI, Conjunctiva are pink and non-injected, sclera clear Ears: External ears normal Nose: mask in place OROPHARYNX: Neck: Respiratory: clear to auscultation,no rhonchi,no wheezes,no crackles Heart: regular rate,regular rhythm,no murmurs,no rubs,no gallops ABDOMEN: abdomen soft, non-tender, no rebound or guarding and no CVA tenderness PELVIC: External genitalia and vagina anatomy within normal limits, No significant vulvar lesions, Uterus is normal size, shape, and consistency, Adnexea normal bilaterally. No abnormal pelvic masses, Pap obtained with broom, positive findings: vaginal discharge noted from cervix - copious, green,bloody and thick EXTREMITIES: less than 2 second capillary refill, no joint deformities, effusion, or inflammation SKIN: skin color, texture, turgor are normal, no rashes or significant lesions Assessment/Plan: High risk heterosexual behavior (Primary) - NEISSERIA AMPLIFIED - CHLAMYDIA AMPLIFIED - VAGINOSIS PANEL, PCR Vaginal discharge - NEISSERIA AMPLIFIED - CHLAMYDIA AMPLIFIED - VAGINOSIS PANEL, PCR Pap smear for cervical cancer screening - PAP SCREEN Discussed risky sexual behavior, advised to always use protection. Information as below provided for most likely dx Given I can not differentiate between dx, will hold treatment until results return. Patient Instructions Vaginal Infection: Trichomoniasis Whether or not he has symptoms, your partner will also need to be treated for trichomoniasis. Trichomoniasis is often called trich. It is caused by a parasite that is passed during sex. Men with trich often dont have any symptoms. So they dont know that they are infected. In women, it can take weeks or months before symptoms develop. Symptoms of trichomoniasis Foamy mendoza or yellow-green discharge Foul odor Intense vaginal itching, burning, redness, and swelling at opening of vagina Pain during sex or urination Bleeding after sex Treating trichomoniasis Trich is treated with antibiotics. Be sure that you: Finish all of your medicine. This is true even if your symptoms go away. Avoid alcohol until youre done with all your medicine. Tell your partner so that he can seek treatment and be tested for other STDs. Avoid sex until you and your partner are both done with treatment. Why treatment matters Untreated trich can lead to problems. These include: Increased risk of delivery if you are An abnormal Pap test result Possible increased risk of pelvic inflammatory disease (PID) Date Last Reviewed: 07/04/201619995538-2921 [employer]. [address] [place], [place] [id number]. All rights reserved. This information is not intended as a substitute for professional medical care. Always follow your healthcare professional's instructions. Gonorrhea Gonorrhea is a bacterial infection that is transmitted sexually. Many women and some men who have gonorrhea do not have any signs or symptoms. If not treated,gonorrhea can cause swollen and painfuljoints and permanent damage to your reproductive organs. It can also makea man or woman unable tohave children. If a woman has gonorrhea,she can infect her baby during childbirth. Gonorrhea is also called the clap or the drip. Symptoms In men: Pain or burning when urinating Watery,milky,or yellow discharge (drip) from the penis or anus In women: Yellow or white discharge (fluid) from the vagina or anus Bleeding between periods Treatment Gonorrhea can be cured quickly with antibiotics. If you are being treated,your partner should also be checked by a healthcare provider. Dont have sex while you are being treated. Prevention As with all STDs,knowing your partners sexual history is a big step toward preventing gonorrhea. Know the signs and symptoms of the infection. And use latex condoms to reduce your risk. Resources [employer] STD Hotline 186-376-8282 www.ashastd.org Centers for Disease Control and Prevention 087-973-4560 www.cdc.gov/std Date Last Reviewed: 04/05/201619995869-[address] [employer] [place] [address]. All rights reserved. This information is not intended as a substitute for professional medical care. Always follow your healthcare professional's instructions. Chlamydia Chlamydia is a very common sexually transmitted disease (STD). Most people do not have symptoms. Because of this, chlamydia may not be noticed until it causes severe problems. Left untreated,this infection can cause women and men to become sterile. This means they will not be able to have children. Symptoms Many people with chlamydia have no symptoms. Women are more likely than men not to have symptoms. If symptoms show up in women, they include: Abnormal vaginal discharge Bleeding between periods Pain or burning during urination If symptoms show up in men, they include: Clear discharge (drip) from the penis or anus Pain or burning during urination These symptoms usually disappear after a few weeks, whether or not you are treated. However, if youare not treated, the chlamydia will still be present and can cause long-term problems. Potential problems If the infection is not treated, it can lead to more serious health problems. In women, this can bepelvic inflammatory disease (PID). PID can make a woman sterile. It can also cause an ectopic (tubal) . This type of cannot be carried to term. Symptoms of PID include fever, pain during sex, and pain in the belly. Sexually active women should get checked for chlamydia regularly. This can help prevent PID. Treatment When found early,chlamydia can be treated. It can be cured with antibiotic medicines. If you haveit, tell your partner right away. Because women often dont have symptoms, men should ask their partners to get tested. Prevention Know your partners history. Protect yourself by using a latex condom whenever you have sex. If you are ,take extra care to get proper treatment. Untreated chlamydia in a woman can pass the infection on to the baby, causing possible eye,ear,or lung problems. There is also the possibility of a premature delivery. Resources [employer] STD Hotline 979-803-9852 www.ashastd.org Centers for Disease Control and Prevention 369-293-4144 www.cdc.gov/std Date Last Reviewed: 04/05/201619992724-[address] [employer] [place] [address], [place] [address]. All rights reserved. This information is not intended as a substitute for professional medical care. Always follow your healthcare professional's instructions. Preventing Vaginitis Use mild, unscented soap when you bathe or shower to avoid irritating your vagina. Vaginitis is irritation or infection of the vagina or vulva(the outside opening of the vagina).Vaginitis can be caused by bacteria, viruses, parasites, or yeast. Chemicals (such as in perfumes orsoaps or in spermicides) can sometimes be a cause. Vaginitis can be caused by hormone changes in pre gnancy or with menopause.You can help prevent vaginitis. Follow the tips below. And see your healthcare provider if you have any symptoms. Hygiene Avoid chemicals. Do not use vaginal sprays. Do not use scented toilet paper or tampons that are scented. Sprays and scents have chemicals that can irritate your vagina. Do not douche unless you are told to by your healthcare provider. Douching is rarely needed. Andit upsets the normal balance in the vagina. Wash yourself well. Wash the outer vaginal area (vulva) every day with mild, unscented soap. Keep it as dry as possible. Wipe correctly. Make sure to wipe from front to back after a bowel movement. This helps keep from spreading bacteria from your anus to your vagina. Change your tampon often. During your period, make sure to change your tampon as often as directed on the package. This allows the normal flow of vaginal discharge and blood. Lifestyle Limit your number of sexual partners. The more partners you have, the greater your risk of infection. Using condoms helps reduce your risk. Get enough sleep. Sleep helps keep your bodys immune system healthy. This helps you fight infection. Lose weight, if needed. Excess weight can reduce air circulation around your vagina. This can increase your risk of infection. Exercise regularly. Regular activity helps keep your body healthy. Take antibiotics only as directed.Antibiotics can change the normal chemical balance in the vagina. Clothing Dont sit in wet clothes. Yeast thrives when its warm and damp. Dont wear tight pants. And dont wear tights, leggings, or hose without a cotton crotch. These types of clothing trap warmth and moisture. Wear cotton underwear. Cotton lets air circulate around the vagina. Symptoms of vaginitis Irritation, swelling, or itching of the genital area Vaginal discharge Bad vaginal odor Pain or burning during urination Date Last Reviewed: 04/05/201619996779-2439 The [employer]. [address] [place] [address]. All rights reserved. This information is not intended as a substitute for professional medical care. Always follow your healthcare professional's instructions. Patient goals for plan of care were discussed. Follow Up: Recommend re-evaluation if not improving or if symptoms worsen. Denisse Kimbrough PA-C Family Practice [facility] [address] [facility] [address] documented in this encounter Nursing Notes * Delmy Hillman CMA - 08/20/2019 8:58 AM EDT Pt presents today with possible yeast infection. States August prescribed Diflucan and finished prescription. No relief. States she has had two different partners within a couple of weeks. States "I noticed a green discharge on Saturday and Saturday." documented in this encounter Plan of Treatment Scheduled Orders Name Type Priority Associated Diagnoses Orde r Schedule NEISSERIA AMPLIFIED Lab Routine High risk heterosexual behavior Vaginal discharge Ordered: 08/20/2019 CHLAMYDIA AMPLIFIED Lab Routine High risk heterosexual behavior Vaginal discharge Ordered: 08/20/2019 PAP SCREEN Pathology Routine Pap smear for cervical cancer screening Ordered: 08/20/2019 VAGINOSIS PANEL, PCR Lab Routine High risk heterosexual behavior Vaginal discharge Ordered: 08/20/2019 Health Maintenance Due Date Last Done Comments PAP SMEAR-EVERY 3 YRS,AGES 21-65 03/20/2020 03/20/2017, 03/19/2017, 03/09/2014, Additional history exists DTaP,Tdap,and Td Vaccines (7 - Td) 11/20/2022 11/20/2012, 04/02/2003, 10/09/1996, Additional history exists MENINGOCOCCAL (MENACTRA/MENVEO) Completed 05/11/2009 *DEPRESSION SCREENING,ANNUAL FOR PTS 12 AND OVER Addressed 03/14/2015 (Discussed) Overridden with t he intention of not completing the topic Influenza Vaccine (FLU shot) Completed 01/28/2019, 01/22/2018, 03/19/2017 (Done elsewhere), Additional history exists Pneumococcal Vaccine: Pediatrics (0 to 5 Years) and At-Risk Patients (6 to 64 Years) Aged Out No longer eligible based on patient's age to complete this topic documented as of this encounter Implants Not on filedocumented as of this encounter Visit Diagnoses Diagnosis High risk heterosexual behavior- Primary Problems related to high-risk sexual behavior Vaginal discharge Leukorrhea, not specified as infective Pap smear for cervical cancer screening Screening for malignant neoplasm of the cervix documented in this encounter Advance Directives Documents on File Type Date Recorded 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
--- OUTSIDE RECORDS SUMMARY | 2023-01-03 01:47 | External Medical Summary | Summary of Care ---
Author Name Unknown Organization [place] [address] Care Team Providers Care Construction Executive Name Role Phone Ernesto HENRY MD, Ilya Reid Primary Care Provider [phone] Encounter Details Date Type Department Care Team Description 03/03/2020 Orders Only Family Practice [facility] [address] [place] [address] Ilya Orozco III, MD [address] [place] [address] [phone] Allergies No Known Active Allergiesdocumented as of this encounter (statuses as of 03/03/2020) Medications Medication Sig Dispensed Refills Start Date End Date Status triamcinolone acetonide (ARISTOCORT) 0.1 % cream Apply to rash on the back and abdomen twice daily Saturday thru 45 g 0 03/28/2015 Active busPIRone (BUSPAR) 5 MG Tablet Take 1 Tab by mouth 2 times a day. 60 Tab 5 09/01/2018 Active fluticasone (FLONASE) 50 MCG/ACT nasal sprayIndications:Ac lovelock non-recurrent maxillary sinusitis Administer 2 Sprays into [...] TIME DAILY 90 Cap 1 10/23/2019 Active documented as of this encounter (statuses as of 03/03/2020) Active Problems Problem Noted Date Keratosis pilaris 05/27/2015 Idiopathic scoliosis 05/11/2009 Allergic rhinitis documented as of this encounter (statuses as of 03/03/2020) Resolved Problems Problem Noted Date Resolved Date Mass of right lung 12/19/2017 04/03/2018 Other specified urticaria 07/31/20042016 Asthma with severity to be determined 03/19/2017 Overview: ICD-10 update of inactive term documented as of this encounter (statuses as of 03/03/2020) Immunizations Name Administration Dates Next Due DTWP [...] Documents on File Type Date Recorded 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
--- OUTSIDE RECORDS SUMMARY | 2023-01-03 01:47 | External Medical Summary | Summary of Care ---
Author Name Unknown Organization [place] [address] Care Team Providers Care Supervisor Hairspring Fabrication Name Role Phone Ilya Orozco MD Primary Care Provider [phone] Reason for Visit * Reason Comments Acute Encounter Details Date Type Department Care Team Description 08/20/2019 Office Visit Family Practice [facility] [address] [place], [place] [id number] Denisse Kimbrough PA-C [address] [place], [place] [phone] High risk heterosexual behavior*; Vaginal discharge; Pap smear for cervical cancer screening Allergies No Known Allergiesdocumented as of this encounter (statuses as of 08/24/2019) Medications Medication Sig Dispensed Refills Start Date [...] as of this encounter (statuses as of 08/24/2019) Active Problems Problem Noted Date Keratosis pilaris 05/27/2015 Idiopathic scoliosis 05/11/2009 Allergic rhinitis documented as of this encounter (statuses as of 08/24/2019) Resolved Problems Problem Noted Date Resolved Date Mass of right lung 12/19/2017 04/03/2018 Other specified urticaria 07/31/20042016 Asthma with severity to be determined 03/19/2017 Overview: ICD-10 update of inactive term documented as of this encounter (statuses as of 08/24/2019) Immunizations Name Administration Dates Next Due DTWP [...] pelvic inflammatory disease (PID) Date Last Reviewed: 07/04/201619991820-5204 [employer]. [address] [place] [address]. All rights reserved. This information is not [...] latex condoms to reduce your risk. Resources [employer] STD Hotline [phone] www.[email or web address] Centers for Disease Control and Prevention 903-437-6176 www.cdc.gov/std Date Last Reviewed: 04/05/201619998459-0741 [employer]. [address] [place] [address]. All rights reserved. This information is not [...] the possibility of a premature delivery. Resources [employer] STD Hotline [phone] www.ashHappier Inc.d.[employer]orText Centers for Disease Control and Prevention 877-526-2501 www.cdc.gov/std Date Last Reviewed: 04/05/201619990314-4477 [employer]. [address] [place] [address], [place] [address]. All rights reserved. This information is not [...] or burning during urination Date Last Reviewed: 04/05/201619990414-3440 [employer]. [address] [place] [address]. All rights reserved. This information is not intended as a substitute for professional medical care. Always follow your healthcare professional's instructions. documented in this encounter Progress Notes * Denisse Kimbrough PA-C - 08/20/2019 9:10 AM EDT CC: Discharge Nursing Notes: Delmy Hillman, [facility] 08/20/19 0904 Signed Pt presents today [...] rhinitis Status asthmaticus September 1994 Hospitalized at [facility] Varicella without complication May 1994 [...] vaginal discharge noted from cervix - copious, green, bloody and thick EXTREMITIES: less than 2 second [...] pelvic inflammatory disease (PID) Date Last Reviewed: 07/04/201619998452-1208 [employer]. [address] [place], [place] [address]. All rights reserved. This information is not [...] latex condoms to reduce your risk. Resources [employer] STD Hotline [phone] www.[email or web address] Centers for Disease Control and Prevention [phone] www.cdc.gov/std Date Last Reviewed: 04/05/201619994301-7896 [employer]. [address] [place] [address]. All rights reserved. This information is not [...] the possibility of a premature delivery. Resources [employer] STD Hotline [phone] www.ashastd.org Centers for Disease Control and Prevention 727-687-0762 www.cdc.gov/std Date Last Reviewed: 04/05/201619995752-5745 [employer]. [address] [place] [address], [place] [address]. All rights reserved. This information is not [...] or burning during urination Date Last Reviewed: 04/05/201619996548-5132 [employer]. [address] [place] [address]. All rights reserved. This information is not intended as a substitute for professional medical care. Always follow your healthcare professional's instructions. Patient goals for plan of care were discussed. Follow Up: Recommend re-evaluation if not improving or if symptoms worsen. Denisse Kimbrough PA-C Family Practice [facility] [address] [facility] [address] documented in this encounter Nursing Notes * Delmy Hillman CMA - 08/20/2019 8:58 AM EDT Pt presents today with possible yeast infection. States August prescribed Diflucan and finished prescription. No relief. States she has had two different partners within a couple of weeks. States "I noticed a green discharge on Saturday and Saturday." documented in this encounter Miscellaneous Notes * Result QuickNote - Rekha Raman PA-C - 08/21/2019 1:37 PM EDT Please send a lab letter stating results normal. documented in this encounter Plan of Treatment Pending Results Name Type Priority Associated Diagnoses Date /Time PAP SCREEN Pathology Routine Pap smear for cervical cancer screening 08/21/2019 3:29 AM EDT Health Maintenance Due Date Last Done Comments Pneumococcal Vaccine: Pediat rics (0 to 5 Years) and At-Risk Patients (6 to 64 Years) (1 of 1 - PPSV23) 09/08/1997 PAP SMEAR-EVERY 3 YRS,AGES 21-65 03/20/2020 03/20/2017, 03/19/2017, 03/09/2014, Additional history exists DTaP,Tdap,and Td Vaccines (7 - Td) 11/20/2022 11/20/2012, 04/02/2003, 10/09/1996, Additional history exists MENINGOCOCCAL (MENACTRA/MENVEO) Completed 0 Influenza Vaccine (FLU shot) Completed , 01/22/2018, 03/19/2017 (Done elsewhere), Additional history exists documented as of this encounter Implants Not on filedocumented as of this encounter Procedures Procedure Name Priority Date/Time Associated Diagnosis Comments VAGINOSIS PANEL, PCR Routine 08/20/2019 10:01 AM EDT High risk heterosexual behavior Vaginal discharge NEISSERIA AMPLIFIED Routine 08/20/2019 10:01 AM EDT High risk heterosexual behavior Vaginal discharge CHLAMYDIA AMPLIFIED Routine 08/20/2019 10:01 AM EDT High risk heterosexual behavior Vaginal discharge documented in this encounter Results * VAGINOSIS PANEL, PCR (08/20/2019 10:01 AM EDT) SPECIMEN DESCRIPTION VAGINAL [facility] C GLABRATA RESULT NEGATIVE NEG [facility] C ALBICANS RESULT NEGATIVE NEG [facility] T VAGINALIS RESULT NEGATIVE NEG [facility] G VAGINALIS RESULT POSITIVE(A) NEG [facility] COMMENT Cassia glabrata not detected by PCR [facility] COMMENT Cassia albicans not detected by PCR [facility] COMMENT Trichomonas vaginali s not detected by PCR [facility] COMMENT Gardnerella vaginali s detected by PCR Comment: ORGANISM MAY BE ASSOCIATED WITH COLONIZATION CLINICAL CORRELATION NEEDED [facility] COMMENT THIS TEST WAS DEVELOPED AND ITS PERFORMANCE CHARACTERISTICS DETERMINED BY [facility] [employer]. IT HAS NOT BEEN CLEARED OR APPROVED BY THE U.S. FOOD AND DRUG ADMINISTRATION (FDA). FDA DOES NOT REQUIRE THIS TEST TO GO THROUGH PREMARKET FDA REVIEW. Comment: THIS TEST IS USED FOR CLINICAL PURPOSES. IT SHOULD NOT BE REGARDED INVESTIGATIONAL OR FOR RESEARCH. THIS LABORATORY IS CERTIFIED UNDER THE CLINICAL LABORATORY IMPROVEMENT AMENDMENTS (CLIA) QUALIFIED TO PERFORM HIGH COMPLEXITY CLINICAL LABORATORY TESTING. [facility] Specimen Performing Organization Address City/[facility] e Phone Number [facility] [address] [place] [address] * CHLAMYDIA AMPLIFIED (08/20/2019 10:01 AM EDT) SOURCE [facility] RESULT NO CHLAMYDIA TRACHOMATIS DETECTED BY STRAINER TENDER-MEDIATED NUCLEIC ACID AMPLIFICATION. NCTTMA [facility] COMMENT APTIMA COMBO2 (AC2) UNISEX SWAB COLLECTION KIT IS FDA APPROVED FOR FEMALE ENDOCERVICAL AND MALE URETHRAL SPECIMENS. AC2 VAGINAL SWAB COLLECTION KIT IS FDA APPROVED FOR FEMALE VAGINAL SPECIMENS. [facility] Specimen Performing Organization Address [facility] e Phone Number [facility] [address] [place] [address] * NEISSERIA AMPLIFIED (08/20/2019 10:01 AM EDT) SOURCE [facility] RESULT NO NEISSERIA GONORRHOEAE DETECTED BY STRAINER TENDER-MEDIATED NUCLEIC ACID AMPLIFICATION. NGCTMA [facility] COMMENT APTIMA COMBO2 (AC2) UNISEX SWAB COLLECTION KIT IS FDA APPROVED FOR FEMALE ENDOCERVICAL AND MALE URETHRAL SPECIMENS. AC2 VAGINAL SWAB COLLECTION KIT IS FDA APPROVED FOR FEMALE VAGINAL SPECIMENS. 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
--- OUTSIDE RECORDS SUMMARY | 2023-01-03 01:47 | External Medical Summary ---
Author Name Unknown Address Unknown Organization R:IT USE ONLY!!! Laboratory Report Ordering Provider Test Date Status DOT CARR 08/20/2019 10:01:00 Final Observation Date Value Abnormality Reference (Units) Status Source 08/20/2019 10:01 VAGINAL Final C trach rRNA XXX Ql PCR 08/21/2019 13:17 NO CHLAMYDIA TRACHOMATIS DETECTED BY BOXING MACHINE OPERATOR-MEDIA ELIUD NUCLEIC ACID AMPLIFICATION. [facility] Final comment 08/21/2019 13:17 APTIMA COMBO2 (AC2) UNISEX SWAB COLLECTION KIT IS FDA APPROVED FOR FEMALE ENDOCERVICAL AND MALE URETHRAL SPECIMENS. AC2 VAGINAL SWAB COLLECTION KIT IS FDA APPROVED FOR FEMALE VAGINAL SPECIMENS. Final Performing Location IT USE ONLY!!!
--- OUTSIDE RECORDS SUMMARY | 2023-01-03 01:47 | External Medical Summary | Summary of Care ---
Author Name Unknown Organization [place] [address] Care Team Providers Care Receiving Teller Name Role Phone Ilya Orozco MD Primary Care Provider [phone] Reason for Visit * Reason Comments Acute Encounter Details Date Type Department Care Team Description 08/20/2019 Office Visit [facility] [address] [place], [place] [phone] Denisse Kimbrough PA-C [address] [place], [place] [address] High risk heterosexual behavior*; Vaginal discharge; Pap smear for cervical cancer screening Allergies No Known Allergiesdocumented as of this encounter (statuses as of 08/21/2019) Medications Medication Sig Dispensed Refills Start Date [...] as of this encounter (statuses as of 08/21/2019) Active Problems Problem Noted Date Keratosis pilaris 05/27/2015 Idiopathic scoliosis 05/11/2009 Allergic rhinitis documented as of this encounter (statuses as of 08/21/2019) Resolved Problems Problem Noted Date Resolved Date Mass of right lung 12/19/2017 04/03/2018 Other specified urticaria 07/31/20042016 Asthma with severity to be determined 03/19/2017 Overview: ICD-10 update of inactive term documented as of this encounter (statuses as of 08/21/2019) Immunizations Name Administration Dates Next Due DTWP [...] pelvic inflammatory disease (PID) Date Last Reviewed: 07/04/201619992763-0254 [employer]. [address] [place] [address]. All rights reserved. This information is not [...] latex condoms to reduce your risk. Resources [employer] STD Hotline [phone] www.ashastd.org Centers for Disease Control and Prevention 560-739-4374 www.cdc.gov/std Date Last Reviewed: 04/05/201619996292-3332 [employer]. [address] [place] [address]. All rights reserved. This information is not [...] the possibility of a premature delivery. Resources [employer] STD Hotline [phone] www.ashFocal Point Energyd.[employer]. Centers for Disease Control and Prevention 321-865-0791 www.cdc.gov/std Date Last Reviewed: 04/05/201619995911-7367 The [employer]. [address] [place] [address], [place] [address]. All rights reserved. This information is not [...] or burning during urination Date Last Reviewed: 04/05/201619994783-0144 [employer]. [address] [place] [address]. All rights reserved. This information is not intended as a substitute for professional medical care. Always follow your healthcare professional's instructions. documented in this encounter Progress Notes * Denisse Kimbrough PA-C - 08/20/2019 9:10 AM EDT CC: Discharge Nursing Notes: Delmy Hillman, [facility] 08/20/19 0904 Signed Pt presents [...] rhinitis Status asthmaticus September 1994 Hospitalized at [facility] Varicella without complication May 1994 Past Surgical [...] pelvic inflammatory disease (PID) Date Last Reviewed: 07/04/201619996538-2275 [employer]. [address] [place], [place] [address]. All rights reserved. This information is not [...] latex condoms to reduce your risk. Resources [employer] STD Hotline [phone] www.ashastd.org Centers for Disease Control and Prevention [phone] www.cdc.gov/std Date Last Reviewed: 04/05/201619999916-[address] [employer] [place] [address]. All rights reserved. This information is not [...] the possibility of a premature delivery. Resources [employer] STD Hotline [phone] www.ashastd.org Centers for Disease Control and Prevention 460-695-6057 www.cdc.gov/std Date Last Reviewed: 04/05/201619994869-[address] [employer] [place] [address], [place] [address]. All rights reserved. This information is not [...] or burning during urination Date Last Reviewed: 04/05/201619995123-7935 [employer]. [address] [place] [address]. All rights reserved. This information is not intended as a substitute for professional medical care. Always follow your healthcare professional's instructions. Patient goals for plan of care were discussed. Follow Up: Recommend re-evaluation if not improving or if symptoms worsen. Denisse Kimbrough PA-C Family Practice [facility] [address] [facility] [address] documented in this encounter Nursing Notes * [...] cervical cancer screening 08/21/2019 3:29 AM EDT VAGINOSIS PANEL, PCR Lab Routine High risk heterosexual behavior Vaginal discharge 08/20/2019 10:01 AM EDT Health Maintenance Due Date Last [...] Procedure Name Priority Date/Time Associated Diagnosis Comments NEISSERIA AMPLIFIED Routine 08/20/2019 10:01 AM EDT High risk heterosexual behavior Vaginal discharge CHLAMYDIA AMPLIFIED Routine 08/20/2019 10:01 AM EDT High risk heterosexual behavior Vaginal discharge documented in this encounter Results * CHLAMYDIA AMPLIFIED (08/20/2019 10:01 AM EDT) SOURCE VAGINAL [facility] RESULT NO CHLAMYDIA TRACHOMATIS DETECTED BY ROLL SHEETING CUTTER-MEDIATED NUCLEIC ACID AMPLIFICATION. [facility] COMMENT APTIMA COMBO2 (AC2) UNISEX SWAB COLLECTION KIT IS FDA APPROVED FOR FEMALE ENDOCERVICAL AND MALE URETHRAL SPECIMENS. AC2 VAGINAL SWAB COLLECTION KIT IS FDA APPROVED FOR FEMALE VAGINAL SPECIMENS. [facility] Specimen Performing Organization Address City/State/[place] e Phone Number [facility] [address] [place] [address] * NEISSERIA AMPLIFIED (08/20/2019 10:01 AM EDT) SOURCE VAGINAL [facility] RESULT NO NEISSERIA GONORRHOEAE DETECTED BY ROLL SHEETING CUTTER-MEDIATED NUCLEIC ACID AMPLIFICATION. [facility] COMMENT APTIMA COMBO2 (AC2) UNISEX SWAB COLLECTION KIT IS FDA APPROVED FOR FEMALE ENDOCERVICAL AND MALE URETHRAL SPECIMENS. AC2 VAGINAL SWAB COLLECTION KIT IS FDA APPROVED FOR FEMALE VAGINAL SPECIMENS. 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
--- OUTSIDE RECORDS SUMMARY | 2023-01-03 01:47 | External Medical Summary ---
Author Name Unknown Address Unknown Organization K01:LABORATORY [facility] - [address] [place] [address] Laboratory Report Ordering Provider Test Date Status 07/06/2020 16:39:18 Final Observation Date Value Abnormality Reference (Units ) Status Choriogonadotropin.in tact+beta subunit [Units/volume] in Serum or Plasma 07/06/2020 16:39:18 2090.0 Above high normal <=1.0 (mIU/mL) Final Performing Location LABORATORY [facility] - [address] [place] [address]
--- OUTSIDE RECORDS SUMMARY | 2023-01-03 01:47 | External Medical Summary | Summary of Care ---
Author Name Unknown Organization [place] [address] Care Team Providers Care Metal Caster Name Role Phone Ilya Orozco MD Primary Care Provider [phone] Reason for Visit * Reason Comments Test Results Encounter Details Date Type Department Care Team Description 08/21/2019 Telephone Family Practice [facility] [address] [place] [address] Rekha Raman PA-C 200 [place] [address] [phone] Test Results Allergies No Known Allergiesdocumented as of this [...] 5 09/01/2018 Active FLUoxetine (PROZAC) 10 MG CapsuleIndications :NAA (generalized anxiety disorder) Take 1 Cap by mouth daily. Daily total of 30 mg. .Add to 20 mg tab 30 Cap 11 09/23/2018 Active Additional Information Patient not taking. Reported on 08/20/2019 9:03 AM FLUoxetine (PROZAC) 20 MG Capsule TAKE ONE CAPSULE BY MOUTH ONE TIME DAILY 30 Cap 10 09/30/2018 Active fluticasone (FLONASE) 50 MCG/ACT nasal sprayIndications:A cute non-recurrent maxillary sinusitis Administer 2 Sprays into [...] 3 days 3 Tab 0 08/12/2019 Active metroNIDAZOLE (FLAGYL) 500 MG Tablet Take 1 Tab by mouth 2 times a day for 7 days. 14 Tab 0 08/21/2019 08/28/2019 Active documented as of this encounter (statuses [...] AM EDT documented as of this encounter Plan of [...] Documents on File Type Date Recorded Patient Clinical Psychiatrist Expl anation Advanced Directive Advanced Directive Advanced Directive Advanced Directive Advanced Directive Advanced Directive Advanced Directive
--- OUTSIDE RECORDS SUMMARY | 2023-01-03 01:47 | External Medical Summary | Summary of Care ---
Author Name Unknown Organization [place] [address] Care Team Providers Care Combat Systems Operator Mine Warfare Name Role Phone Ernesto HENRY MD, Ilya Reid Primary Care Provider [phone] Reason for Visit * Reason Onset Date Comments Follow Up Lab results and conception. Medication Administration 03/01/2020 Flu an d/or Pneumo Inj Encounter Details Date Type Department Care Team Description 03/01/2020 Office Visit Family Practice [facility] [address] [place] [address] Rekha Raman PA-C 200 [place] [address] [phone] Amenorrhea following discontinuation of oral contraceptive use*; Need for prophylactic vaccination and inoculation against influenza Allergies No Known Active Allergiesdocumented as of this encounter (statuses as of 03/01/2020) Medications Medication Sig Dispensed Refills Start Date End Date Status triamcinolone acetonide (ARISTOCORT) 0.1 % cream Apply to rash on the back and abdomen twice daily Saturday thru 45 g 0 03/28/2015 Active busPIRone (BUSPAR) 5 MG Tablet Take 1 Tab by mouth 2 times a day. 60 Tab 5 09/01/2018 Active fluticasone (FLONASE) 50 MCG/ACT nasal sprayIndications [...] TIME DAILY 90 Cap 1 10/23/2019 Active FLUoxetine (PROZAC) 10 MG CapsuleIndicatio ns:NAA (generalized anxiety disorder) Take 1 Cap by mouth daily. Daily total of 30 mg. .Add to 20 mg tab 30 Cap 11 09/23/2018 0 Discontinued TRI-LINYAH 0.18/0.215/0.25 MG-35 MCG per Tablet TAKE ONE TABLET BY MOUTH DAILY 84 Tab 2 06/15/2019 0 Discontinued documented as of this encounter (statuses as of 03/01/2020) Active Problems Problem Noted Date Keratosis pilaris 05/27/2015 Idiopathic scoliosis 05/11/2009 Allergic rhinitis documented as of this encounter (statuses as of 03/01/2020) Resolved Problems Problem Noted Date Resolved Date Mass of right lung 12/19/2017 04/03/2018 Other specified urticaria 07/31/20042016 Asthma with severity to be determined 03/19/2017 Overview: ICD-10 update of inactive term documented as of this encounter (statuses as of 03/01/2020) Immunizations Name Administration Dates Next Due DTWP [...] Sign Reading Time Taken Comments Blood Pressure 100/62 03/01/2020 8:40 AM EDT Pulse 70 03/01/2020 8:40 AM EDT Temperature 36.7 C (98.1 F) 03/01/2020 8:40 AM ED T Respiratory Rate 16 03/01/2020 8:40 AM EDT Oxygen Saturation 99% 03/01/2020 8:40 AM EDT Inhaled Oxygen Concentration - - Weight 59.4 kg (131 lb 0.6 oz) 03/01/2020 8:40 A M EDT Height 157.5 cm (5' 2") 03/01/2020 8:40 AM EDT Body Mass Index 23.97 03/01/2020 8:40 AM EDT documented in this encounter Progress Notes * Rekha Raman PA-C - 03/01/2020 2:51 PM EDT SUBJECTIVE: Aria Melgar is a 29 year old female. Chief Complaint Patient presents with Follow Up Lab results and conception. Medication Administration Flu and/or Pneumo Inj HPI: Patient is a 29-year-old female who presents today with amenorrhea. Discontinued controlpills in November this year. She got her 1st menstrual cycle at the end of December that. She has been checking her ovulation through an ovulatory test. In January she got positive response then did havea menstrual cycle. In February she has not got a positive nor she had any menses. Is concerned issues trying to conceive. Patient Active Problem List Diagnosis Code Allergic rhinitis J30.9 Idiopathic scoliosis M41.20 Keratosis pilaris L85.8 Current Outpatient Medications Medication Sig Dispense Refill FLUoxetine (PROZAC) 20 MG Capsule TAKE ONE [...] allergies indicates: No Known Allergies OBJECTIVE: BP 100/62 | Pulse 70 | Temp 36.7 C (98.1 F) (Tympanic) | Resp 16 | Ht (!) 1.575 m (5' 2") | Wt 59.4 kg (131 lb 0.6 oz) | SpO2 99% | BMI 23.97 kg/m | BSA 1.61 m PHYSICAL EXAM: General: alert, healthy, no distress, well nourished, well developed, comfortable and cooperative Neck: supple, no adenopathy, no bruits, thyroid normal size, non-tender, without nodularity Heart: regular rate & rhythm, no murmurs and no gallops Lungs: chest symmetric with normal AP diameter, no chest deformities noted, normal respiratory rateand rhythm, no chest wall tenderness, diaphragmatic excursion normal, lungs clear to auscultation ASSESSMENT: N91.2 Amenorrhea following discontinuation of oral contraceptive use (primary encounter diagnosis) Z23 Need for prophylactic vaccination and inoculation against influenza PLAN: Amenorrhea following discontinuation of oral contraceptive use (Primary) - CBC - TSH - BETA-HCG Need for prophylactic vaccination and inoculation against influenza - INFLUENZA VACC, QUAD, PF, 6 MONTHS & UP, 0.5 ML, IM Discussed doing a provera challenge. Follow up as needed. Rekha Raman PA-C * Carolina Santos LPN - 03/01/2020 8:41 AM EDT PRE - ADMINISTRATION DOCUMENTATION Are you allergic to latex? No Are you experiencing any cold symptoms or fever? No Have you had Guillain-[place] Syndrome (an illness that causes paralysis) within the last 6 weeks? No Have you had the flu shot in the past? YES Have you ever had a reaction to the flu shot? No Carolina Santos LPN, 03/01/2020 8:41 AM Immunization Administration Documentation Time Out Procedure Performed: Yes Patient Identified (Ask Name/Date of ): Yes Does the patient have a fever greater than 101 degrees today? No Patient allergic to latex? No VFC Stock: No Immunization(s) verified: Yes, Immunization Name: Flu, VIS Sheet(s) given: Yes Verified Side and Site: Yes Verified Shot(s) with Parent(s)/Patient: Yes documented in this encounter Nursing Notes * Carolina Santos LPN - 03/01/2020 8:39 AM EDT Chief Complaint Patient presents with Follow Up Lab results and conception. documented in this encounter Plan of Treatment Scheduled Orders Name Type Priority Associated Diagnoses Orde r Schedule CBC Lab Routine Amenorrhea following discontinuation of oral contraceptive use Ordered: 03/01/2020 TSH Lab Routine Amenorrhea following discontinuation of oral contraceptive use Ordered: 03/01/2020 BETA-HCG Lab Routine Amenorrhea following discontinuation of oral contraceptive use Ordered: 03/01/2020 Health Maintenance Due Date Last Done Comments [...] as of this encounter Visit Diagnoses Diagnosis Amenorrhea following discontinuation of oral contraceptive use- Primary Absence of menstruation Need for prophylactic vaccination and inoculation against influenza documented in this encounter Advance Directives Documents on File Type Date Recorded 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
--- OUTSIDE RECORDS SUMMARY | 2023-01-03 01:47 | External Medical Summary | Summary of Care ---
Author Name Unknown Organization [place] [address] Care Team Providers Care Level Glass Forming Machine Operator Name Role Phone Ilya Orozco MD Primary Care Provider [phone] Reason for Visit * Reason Comments Sore Throat Encounter Details Date Type Department Care Team Description 10/23/2019 Office Visit Family Practice [facility] [address] [place] [address] Rekha Raman PA-C 200 [facility] [place] [id number] Acute tonsillitis due to other specified organisms* Allergies No Known Allergiesdocumented as of this encounter (statuses as of 10/23/2019) Medications Medication Sig Dispensed Refills Start Date End Date Status triamcinolone acetonide (ARISTOCORT) 0.1 % cream Apply to rash on the back and abdomen twice daily Saturday thru 45 g 0 03/28/2015 Active busPIRone (BUSPAR) 5 MG Tablet Take 1 Tab by mouth 2 times a day. 60 Tab 5 09/01/2018 Active FLUoxetine (PROZAC) 10 MG CapsuleIndication s:NAA (generalized anxiety disorder) Take 1 Cap by mouth daily. Daily total of 30 mg. .Add to 20 mg tab 30 Cap 11 09/23/2018 Active FLUoxetine (PROZAC) 20 MG Capsule TAKE ONE CAPSULE BY MOUTH ONE TIME DAILY 30 Cap 10 09/30/2018 Active fluticasone (FLONASE) 50 MCG/ACT nasal sprayIndications: Acute non-recurrent maxillary sinusitis Administer 2 Sprays into each nostril 2 times a day. 1 Inhaler 5 03/19/2019 Active TRI-LINYAH 0.18/0.215/0.25 MG-35 MCG per Tablet TAKE ONE TABLET BY MOUTH DAILY 84 Tab 2 06/15/2019 Active Albuterol Sulfate (ALBUTEROL HFA) 108 (90 BASE) MCG/ACT inhalerIndication s:Acute non-recurrent maxillary sinusitis Inhale 2 Puffs by mouth every 4 hours as needed for Wheezing. 18 g 1 08/06/2019 Active doxycycline hyclate 100 MG CapsuleIndication s:Acute tonsillitis due to other specified organisms Take 1 Cap by mouth 2 times a day for 7 days. Take for 7 days 14 Cap 0 10/23/2019 0 Active fluconazole (DIFLUCAN) 150 MG Tablet 1 tab every 3 days 3 Tab 0 08/12/2019 0 Discontinued documented as of this encounter (statuses as of 10/23/2019) Active Problems Problem Noted Date Keratosis pilaris 05/27/2015 Idiopathic scoliosis 05/11/2009 Allergic rhinitis documented as of this encounter (statuses as of 10/23/2019) Resolved Problems Problem Noted Date Resolved Date Mass of right lung 12/19/2017 04/03/2018 Other specified urticaria 07/31/20042016 Asthma with severity to be determined 03/19/2017 Overview: ICD-10 update of inactive term documented as of this encounter (statuses as of 10/23/2019) Immunizations Name Administration Dates Next Due DTWP [...] have Coronavirus / COVID-19? No / Unsure 10/23/2019 10:06 AM EDT documented as of this encounter Last Filed Vital Signs Vital Sign Reading Time Taken Comments Blood Pressure 100/64 10/23/2019 10:32 AM EDT Pulse 72 10/23/2019 10:32 AM EDT Temperature 35.8 C (96.4 F) 10/23/2019 10:32 AM E DT Respiratory Rate 12 10/23/2019 10:32 AM EDT Oxygen Saturation 99% 10/23/2019 10:32 AM EDT Inhaled Oxygen Concentration - - Weight 61.7 kg (136 lb) 10/23/2019 10:32 AM EDT Height - - Body Mass Index 24.87 01/28/2019 11:07 AM EDT documented in this encounter Progress Notes * Rekha Raman PA-C - 10/23/2019 11:06 AM EDT SUBJECTIVE: Aria Melgar is a 29 year old female. Chief Complaint Patient presents with Sore Throat HPI: Patient is a 29-year-old female who presents today with throat symptoms about 4 days duration.Basically is a very sore throat redness and exudates on the white right side in the back. Also notes a bad taste in the back of her throat. When she tried to remove the white spots got some bleeding on a Q-tip. She has had to take Advil for this. The only other upper respiratory symptoms she has a some nasal congestion. Patient Active Problem List Diagnosis Code Allergic rhinitis J30.9 Idiopathic scoliosis M41.20 Keratosis pilaris L85.8 Current Outpatient Medications Medication Sig Dispense Refill doxycycline hyclate 100 MG Capsule Take 1 Cap by mouth 2 times a day for 7 days. Take for 7 days 14 Cap 0 Albuterol Sulfate (ALBUTEROL HFA) 108 (90 [...] MOUTH ONE TIME DAILY 30 Cap 10 FLUoxetine (PROZAC) 10 MG Capsule Take 1 Cap by mouth daily. Daily total of 30 mg. .Add to 20 mg tab 30 Cap 11 busPIRone (BUSPAR) 5 MG Tablet Take 1 Tab by mouth 2 times a day. 60 Tab 5 triamcinolone acetonide (ARISTOCORT) 0.1 % cream Apply to rash on the back and abdomen twice daily Saturday thru 45 g 0 Review of patient's allergies indicates: No Known Allergies OBJECTIVE: BP 100/64 | Pulse 72 | Temp (Src) 96.4 (Tympanic) | Resp 12 | Wt 136 lbs (61.689kg) | BMI 24.87 kg/m | BSA 1.64 m | SaO2 99% PHYSICAL EXAM: General: alert, healthy, no distress, well nourished, well developed and cooperative Ears: External ears normal, Canals clear, TM's Normal Nose: no mucosal erythema, no mucosal edema, no purulent discharge Oropharynx: no exudate, lips, buccal mucosa, and tongue normal, mucous membranes are moist, exudates present and mild erythema Neck: supple, no adenopathy, no bruits, thyroid normal size, non-tender, without nodularity Heart: regular rate & rhythm, no murmurs and no gallops Lungs: chest symmetric with normal AP diameter, no chest deformities noted, no chest wall tenderness, lungs clear to auscultation ASSESSMENT: J03.80 Acute tonsillitis due to other specified organisms (primary encounter diagnosis) PLAN: Acute tonsillitis due to other specified organisms (Primary) - doxycycline hyclate 100 MG Capsule; Take 1 Cap by mouth 2 times a day for 7 days. Take for 7 days Follow up as needed. Rekha Raman PA-C documented in this encounter Nursing Notes * Latrice Mccarty LPN - 10/23/2019 10:31 AM EDT Sore throat documented in this encounter Plan of Treatment [...] of this encounter Visit Diagnoses Diagnosis Acute tonsillitis due to other specified organisms- Primary documented in this encounter Advance Directives Documents on File Type Date Recorded Patient Patient Services Coordinator Expl anation Advanced Directive Advanced Directive Advanced Directive Advanced Directive Advanced Directive Advanced Directive Advanced Directive"
--- OUTSIDE RECORDS SUMMARY | 2023-01-03 01:47 | External Medical Summary ---
Author Name Unknown Address Unknown Organization R:IT USE ONLY!!! Laboratory Report Ordering Provider Test Date Status DOT CARR 08/20/2019 10:01:00 Final Observation Date Value Abnormality Reference (Units) Status Source 08/20/2019 10:01 VAGINAL Final N gonorrhoea rRNA XXX Ql PCR 08/21/2019 13:17 NO NEISSERIA GONORRHOEAE DETECTED BY CONSULTANT TECHNOLOGY-MEDIA ELIUD NUCLEIC ACID AMPLIFICATION. NGCTMA Final comment 08/21/2019 13:17 APTIMA COMBO2 (AC2) UNISEX SWAB COLLECTION KIT IS FDA APPROVED FOR FEMALE ENDOCERVICAL AND MALE URETHRAL SPECIMENS. AC2 VAGINAL SWAB COLLECTION KIT IS FDA APPROVED FOR FEMALE VAGINAL SPECIMENS. Final Performing Location IT USE ONLY!!!
--- OUTSIDE RECORDS SUMMARY | 2023-01-03 01:47 | External Medical Summary | Summary of Care ---
Author Name Unknown Organization [place] [address] Care Team Providers Care Purifying Plant Operator Name Role Phone Clare Ireland MD Primary Care Provider [phone] Reason for Visit * Reason Comments eRx-Medication Refill Encounter Details Date Type Department Care Team Description 10/23/2019 Refill Family Practice [facility] [address] [place] [address] Clare Ireland III, MD [address] [place] [address] [phone] Allergies No Known Allergiesdocumented as of this [...] mg tab 30 Cap 11 09/23/2018 Active fluticasone (FLONASE) 50 MCG/ACT nasal sprayIndications: [...] TIME DAILY 90 Cap 1 10/23/2019 Active doxycycline hyclate 100 MG CapsuleIndication s:Acute tonsillitis due to other specified organisms Take 1 Cap by mouth 2 times a day for 7 days. Take for 7 days 14 Cap 0 10/23/2019 0 Active FLUoxetine (PROZAC) 20 MG Capsule TAKE ONE CAPSULE BY MOUTH ONE TIME DAILY 30 Cap 10 09/30/2018 0 Discontinued documented as of this encounter [...] AM EDT documented as of this encounter Miscellaneous Notes * Telephone Encounter - Santana Campos [facility] - 10/23/2019 11:23 PM EDT 30mg * Telephone Encounter - Santana Campos [facility] - 10/23/2019 11:23 PM EDT Signed Prescriptions: Disp Refills FLUoxetine (PROZAC) 20 MG Capsule 90 Cap 1 Sig: TAKE ONE CAPSULE BY MOUTH ONE TIME DAILY Authorizing Provider: CLARE IRELAND III User: SANTANA CAMPOS documented in this encounter Plan of Treatment [...] Documents on File Type Date Recorded Patient Truckload Checker Expl anation Advanced Directive Advanced Directive Advanced Directive Advanced Directive Advanced Directive Advanced Directive Advanced Directive
--- OUTSIDE RECORDS SUMMARY | 2023-01-03 01:47 | External Medical Summary | Summary of Care ---
Author Name Unknown Organization [place] [address] Care Team Providers Care Open Tenter Operator Name Role Phone Ernesto HENRY MD, Ilya Reid Primary Care Provider [phone] Reason for Visit * Reason Comments eRx-Medication Refill Encounter Details Date Type Department Care Team Description 06/12/2020 Refill Family Practice [facility] 200 [facility] [place] [address] Ilya Orozco III, MD 200 [place] [address] [phone] Allergies No Known Active Allergiesdocumented as of this encounter (statuses as of 06/14/2020) Medications Medication Sig Dispensed Refills Start Date [...] ONCE DAILY 90 Cap 3 06/14/2020 Active FLUoxetine (PROZAC) 20 MG Capsule TAKE ONE CAPSULE BY MOUTH ONE TIME DAILY 90 Cap 1 10/23/2019 Discontinued documented as of this encounter (statuses as of 06/14/2020) Active Problems Problem Noted Date Keratosis pilaris 05/27/2015 Idiopathic scoliosis 05/11/2009 Allergic rhinitis documented as of this encounter (statuses as of 06/14/2020) Resolved Problems Problem Noted Date Resolved Date Mass of right lung 12/19/2017 04/03/2018 Other specified urticaria 07/31/20042016 Asthma with severity to be determined 03/19/2017 Overview: ICD-10 update of inactive term documented as of this encounter (statuses as of 06/14/2020) Immunizations Name Administration Dates Next Due DTWP [...] Notes * Telephone Encounter - Adriano Perrin formerly [facility] - 06/14/2020 6:16 AM EST Signed Prescriptions: Disp Refills FLUoxetine HCl 20 MG Oral Capsule (PROzac) 90 Cap 3 Sig: TAKE 1CAPSULE BY MOUTH ONCE DAILYAuthorizing Provider: SASKIA KAT AOrjeaning User: ADRIANO PERRIN-------- documented in this encounter Plan of Treatment [...] Documents on File Type Date Recorded Patient Optometric Aide Expl 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 Advanced Directive Advanced Directive Advanced Directive
--- OUTSIDE RECORDS SUMMARY | 2023-01-03 01:47 | External Medical Summary | Summary of Care ---
Author Name Unknown Organization [place] [address] Care Team Providers Care Shot Peen Operator Name Role Phone Ernesto HENRY MD, Ilya Reid Primary Care Provider [phone] Reason for Visit * Reason Onset Date Comments Follow Up Lab results and conception. Medication Administration 03/01/2020 Flu an d/or Pneumo Inj Encounter Details Date Type Department Care Team Description 03/01/2020 Office Visit Family Practice [facility] [address] [place] [address] Rekha Raman PA-C 200 [place] [address] [phone] Amenorrhea following discontinuation of oral contraceptive use*; [...] kg (131 lb 0.6 oz) 03/01/2020 8:40 AM EDT Height 157.5 cm (5' 2") 03/01/2020 [...] symptoms or fever? No Have you had Guillain-[place] Syndrome (an illness that causes paralysis) within [...] results and conception. documented in this encounter Miscellaneous Notes * Result QuickNote - Rekha Raman PA-C - 03/03/2020 10:41 AM EDT Please send a lab letter stating [...] Procedure Name Priority Date/Time Associated Diagnosis Comments BETA-HCG Routine 03/01/2020 Amenorrhea following discontinuation of oral contraceptive use CBC Routine 03/01/2020 Amenorrhea following discontinuation of oral contraceptive use TSH Routine 03/01/2020 Amenorrhea following discontinuation of oral contraceptive use documented in this encounter Results * BETA-HCG (03/01/2020) BHCG VALUE-OUTSIDE LAB <3 <5 MIU/ML OUTSI DE LAB (SEE SCANNED REPORT) Specimen Narrative Performed At Performing Organization Address City/[facility] Co de Phone Number OUTSIDE LAB (SEE SCANNED REPORT) * TSH (03/01/2020) TSH - OUTSIDE LAB 1.00 0.40 - 4.50 MIU/L OUTSI DE LAB (SEE SCANNED REPORT) Specimen Narrative Performed At OUTSIDE LAB (SEE SCANNED REPORT) * CBC (03/01/2020) HEMOGLOBIN-OUTSIDE LAB 13.6 11.7 - 15.5 G/DL OUTSIDE LAB (SEE SCANNED REPORT) Specimen Narrative Performed At Performing Organization Address City/State/[facility] Co de Phone Number OUTSIDE LAB (SEE SCANNED REPORT) documented in this encounter Visit Diagnoses Diagnosis Amenorrhea following discontinuation of oral contraceptive use- Primary Absence of menstruation Need for prophylactic vaccination and inoculation against influenza documented in this encounter Advance Directives Documents on File Type Date Recorded Patient Explosive Ordnance Technician Expl 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
--- OUTSIDE RECORDS SUMMARY | 2023-01-03 01:47 | External Medical Summary | Summary of Care ---
Author Name Unknown Organization [place] [address] Care Team Providers Care Advanced Quality Engineer Name Role Phone Ernesto HENRY MD, Ilya Reid Primary Care Provider [phone] Reason for Visit * Reason Onset Date Comments Order Request 04/27/2020 Encounter Details Date Type Department Care Team Description 04/27/[address] [facility] [address] [facility] [place] [address] Rekha Raman PA-C [address] [facility] [place] [address] [phone] Order Request Allergies No Known Active Allergiesdocumented as of this encounter (statuses as of 06/10/2020) Medications Medication Sig Dispensed Refills Start Date [...] as of this encounter (statuses as of 06/10/2020) Active Problems Problem Noted Date Keratosis pilaris 05/27/2015 Idiopathic scoliosis 05/11/2009 Allergic rhinitis documented as of this encounter (statuses as of 06/10/2020) Resolved Problems Problem Noted Date Resolved Date Mass of right lung 12/19/2017 04/03/2018 Other specified urticaria 07/31/20042016 Asthma with severity to be determined 03/19/2017 Overview: ICD-10 update of inactive term documented as of this encounter (statuses as of 06/10/2020) Immunizations Name Administration Dates Next Due DTWP [...] encounter Miscellaneous Notes * Telephone Encounter - eDlmy Hillman CMA - 04/27/2020 8:44 AM EST Order pending if agreeable * Telephone Encounter - Lilli Barlow OSA - 04/27/2020 8:31 AM EST An order was requested for this patient. Name of Requesting Provider: Self Order Requested: Labs for Diagnosis/Reason for Request: 8 days late on period/ negative at home test Does the order need to be faxed somewhere? If so, where?: no Fax Number, if applicable: N/a Call Back Number: [phone] documented in this encounter Plan of Treatment [...] Not on filedocumented as of this encounter Results * BETA-HCG, QUANTITATIVE (05/04/2020 12:45 PM EST) HCG, BETA <0.1 Comment: hCG can serve as a screening assay for . However, early may not give a positive hCG test result. In addition, some non- women may have a hCG result slightly higher than the reference limit. Careful interpretation of the hCG with clinical history is required to determine whether the patient may be . 0 - 1 mIU/mL [facility] Specimen [facility] [address] [place] [address] documented in this encounter Visit Diagnoses Diagnosis Amenorrhea- Primary Absence of menstruation documented in this encounter Advance Directives Documents on File Type Date Recorded Patient Manager Account Management Expl 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 Advanced Directive Advanced Directive Advanced Directive
--- OUTSIDE RECORDS SUMMARY | 2023-01-03 01:47 | External Medical Summary | Summary of Care ---
Author Name Unknown Organization [facility] Address [place] [address] Care Team Providers Care Shank Cutter Name Role Phone Ilya Orozco MD Primary Care Provider [phone] Encounter Details Date Type Department Care Team Description 11/01/2019 Scan Encounter Unspecified Department <No scans attached> Allergies No Known Allergiesdocumented as of this encounter (statuses as of 11/03/2019) Medications Medication Sig Dispensed Refills Start Date [...] 09/23/2018 Active fluticasone (FLONASE) 50 MCG/ACT nasal sprayIndications:Ac sun'aq non-recurrent maxillary sinusitis Administer 2 Sprays into [...] as of this encounter (statuses as of 11/03/2019) Active Problems Problem Noted Date Keratosis pilaris 05/27/2015 Idiopathic scoliosis 05/11/2009 Allergic rhinitis documented as of this encounter (statuses as of 11/03/2019) Resolved Problems Problem Noted Date Resolved Date Mass of right lung 12/19/2017 04/03/2018 Other specified urticaria 07/31/20042016 Asthma with severity to be determined 03/19/2017 Overview: ICD-10 update of inactive term documented as of this encounter (statuses as of 11/03/2019) Immunizations Name Administration Dates Next Due DTWP [...] Documents on File Type Date Recorded Patient Corner Trimmer Operator Expl anation Advanced Directive Advanced Directive Advanced Directive Advanced Directive Advanced Directive Advanced Directive Advanced Directive
--- OUTSIDE RECORDS SUMMARY | 2023-01-03 01:48 | External Medical Summary | Summary of Care ---
Author Name Unknown Organization [place] [address] Care Team Providers Care Cooker Tender Name Role Phone Clare Ireland MD Primary Care Provider Unavailab le Reason for Visit * Reason Comments eRx-Medication Refill Encounter Details Date Type Department Care Team Description 06/28/2018 Refill Family Practice [facility] [address] [place] [address] Rekha Raman PA-C [address] [place] [address] [phone] Allergies No Known Allergiesdocumented as of this encounter (statuses as of 06/29/2018) Medications Medication Sig Dispensed Refills Start Date End Date Status triamcinolone acetonide (ARISTOCORT) 0.1 % cream Apply to rash on the back and abdomen twice daily Saturday thru 45 g 0 03/28/2015 Active Phenazopyridine HCl (AZO DINE MAXIMUM STRENGTH) 97.5 MG TABS Take by mouth. 0 Active FLUoxetine (PROZAC) 20 MG Capsule TAKE ONE CAPSULE BY MOUTH ONE TIME DAILY 30 Cap 11 09/10/2017 Active fluticasone (FLONASE) 50 MCG/ACT nasal sprayIndications :Acute non-recurrent maxillary sinusitis Administer 2 Sprays into each nostril 2 times a day. 1 Inhaler 5 10/23/2017 Active albuterol (PROAIR HFA) 108 (90 BASE) MCG/ACT inhalerIndicatio ns:Acute non-recurrent maxillary sinusitis Inhale 2 Puffs by mouth every 4 hours as needed for Wheezing. 1 Inhaler 1 10/23/2017 Active sulfamethoxazole -trimethoprim 400-80 mg per tab (BACTRIM) 400-80 MG per tablet Take 1 Tab by mouth 2 times a day. 60 Tab 0 04/10/2018 Active fluconazole (DIFLUCAN) 150 MG Tablet 1 tab every 3 days 3 Tab 0 06/25/2018 Active TRI-PREVIFEM 0.18/0.215/0.25 MG-35 MCG per Tablet TAKE 1 TABLET BY MOUTH DAILY 28 Tab 11 06/29/2018 Active Norgestim-Eth Estrad Triphasic (TRINESSA, 28,) 0.18/0.215/0.25 MG-35 MCG per Tablet Take 1 Tab by mouth daily. 1 Package 11 06/27/2017 9 Discontinued documented as of this encounter (statuses as of 06/29/2018) Active Problems Problem Noted Date Keratosis pilaris 05/27/2015 Idiopathic scoliosis 05/11/2009 Allergic rhinitis documented as of this encounter (statuses as of 06/29/2018) Resolved Problems Problem Noted Date Resolved Date Mass of right lung 12/19/2017 04/03/2018 Other specified urticaria 07/31/20042016 Asthma with severity to be determined 03/19/2017 Overview: ICD-10 update of inactive term documented as of this encounter (statuses as of 06/29/2018) Immunizations Name Dates Previously Given Next Due DTWP - Dipth/Tet/Whole Cell Pertussis ,03/18/1992,01/26/1992,10/1991 DTaP - Dipth/Tet/Acell Pertussis 10/09/1996 Haemophilus B (HIB) 12/22/1992, 2,01/26/1992,10/1991 Hepatitis B Vaccine 03/18/1992,1991,1991 Influenza Virus Vaccine 02/05/1996,02/19/1995 MMR - Measles/Mumps/Rubella Vaccine 10/09/1996,0 12/22/1992 Meningococcal MCV4P Conjugat e Vaccine (Menactra) 05/11/2009 OPV - Polio Virus Vaccine (Oral) 997,12/22/1992,01/26/1992,10/1991 PPD 10/09/1996 Seasonal Influenza, Quadriva lent, No Preserve, 6 Mons & Above, IM 01/22/2018 Seasonal Influenza, Quadriva lent, No Preserve, IM 03/11/2017,03/14/2015 Seasonal Influenza, Trivalen t, with Preserve, 3yr & Above, Split 03/09/2014,03/26/2013,02/12/2011,10/2009,02/14/2004,03/10/2003,2001,03/13/2001,04/03/2000, 9 TD - Tetanus/Diptheria (ADULT) 04/02/2003 TDAP (age 10 and older)(Boostrix) 11/20/2012 documented as of this encounter Social History Tobacco Use Types Packs/Day Years Used Date Never Smoker Smokeless Tobacco: Never Used Comments:Passive smoke expos ure at fathers every other weekend. Alcohol Use Drinks/Week oz/Week Comments Yes ocassional Sex Assigned at Date Recorded Not on file Job Start Date Occupation Industry Not on file Not on file Not on file Travel History Travel Start Travel End documented as of this encounter Miscellaneous Notes * Telephone Encounter - Clare Irleand III, MD - 06/29/2018 8:36 AM EST Signed Prescriptions: Disp Refills TRI-PREVIFEM 0.18/0.215/0.25 MG-35 MCG per*28 Tab 11 Sig: TAKE 1 TABLET BY MOUTH DAILY Authorizing Provider: CLARE IRELAND III * Telephone Encounter - Joanie Piedra LPN - 06/28/2018 11:22 AM EST Pending Prescriptions: Disp Refills TRI-PREVIFEM 0.18/0.215/0.25 MG-35 MCG pe*28 Tab 11 Sig: TAKE 1 TABLET BY MOUTH DAILY * Telephone Encounter - Joanie Piedra LPN - 06/28/2018 11:22 AM EST Pending Prescriptions: Disp Refills TRI-PREVIFEM 0.18/0.215/0.25 MG-35 MCG pe*28 Tab 11 Sig: TAKE 1 TABLET BY MOUTH DAILY Last Office Visit: 05/21/2018 Next Office Visit: No Future Appointments Last date the medication was ordered: 06/27/17 Patient Active Problem List Diagnosis Code Allergic rhinitis J30.9 Idiopathic scoliosis M41.20 Keratosis pilaris L85.8 Labs: CREATININE(mg/dL) Luis Dt/Tm Resulted Value Status 09/20/16 7:14A 09/20/16 0.7 FINAL POTASSIUM(mmol/L) Luis Dt/Tm Resulted Value Status 09/20/16 7:14A 09/20/16 4.1 FINAL TSH(uIU/mL) Luis Dt/Tm Resulted Value Status 05/23/17 4:41P 05/23/17 1.85 FINAL No LDL components found ALT(U/L) Luis Dt/Tm Resulted Value Status 07/16/13 9:10A 07/16/13 13 FINAL Hemoglobin AIC Results: HEMOGLOBIN, A1C(%) Luis Dt/Tm Resulted Value Status 05/23/11 1:11P 05/23/11 4.7 FINAL documented in this encounter Plan of Treatment Health Maintenance Due Date Last Done Comments PAP SMEAR-EVERY 3 YRS,AGES 21-65 03/20/2020 03/20/2017, 03/19/2017, 03/09/2014, Additional history exists DTaP,Tdap,and Td Vaccines (7 - Td) 11/20/2022 11/20/2012, 04/02/2003, 10/09/1996, Additional history exists MENINGOCOCCAL (MENACTRA) Completed 05/11/2009 *DEPRESSION SCREENING, ANNUAL FOR PTS 18 AND OVER Addressed 03/14/2015 (Discussed) Overridden with the intention of not completing the topic Influenza Vaccine (FLU shot) Completed 01/22/2018, 03/19/2017 (Done elsewhere), 03/11/2017, Additional history exists documented as of this encounter Implants Not on filedocumented as of this encounter Advance Directives Patient has advance care planning documents on file. For more information, please contact: [place] [phone]
--- OUTSIDE RECORDS SUMMARY | 2023-01-03 01:48 | External Medical Summary | Summary of Care ---
Author Name Unknown Organization [place] [address] Care Team Providers Care Cash Teller Name Role Phone Ilya Orozco MD Primary Care Provider [phone] Reason for Visit * Reason Comments Vaginal Discharge Encounter Details Date Type Department Care Team Description 05/21/2018 Office Visit Family Practice [facility] [address] [place] [address] Rekha Raman PA-C [address] [place] [address] [phone] Yeast vaginitis* Allergies No Known Allergiesas of this encounter Medications Medication Sig Dispensed Refills Start Date End Date Status triamcinolone acetonide (ARISTOCORT) 0.1 % cream Apply to rash on the back and abdomen twice daily Saturday thru 45 g 0 03/28/2015 Active Phenazopyridine HCl (AZO DINE MAXIMUM STRENGTH) 97.5 MG TABS Take by mouth. 0 Active Norgestim-Eth Estrad Triphasic (TRINESSA, 28,) 0.18/0.215/0.25 MG-35 MCG per Tablet Take 1 Tab by mouth daily. 1 Package 11 06/27/2017 Active FLUoxetine (PROZAC) 20 MG Capsule TAKE [...] tab every 3 days 3 Tab 0 05/21/2018 Active PredniSONE (DELTASONE) 10 MG TabletIndication s:Acute maxillary sinusitis, recurrence not specified Take 5 tabs for 3 days, 4 tabs for 3 days, 3 tabs for 3 days, 2 tabs for 3 days 1 tab for 3 days 45 Tab 0 04/03/2018 9 Discontinued as of this encounter Active Problems Problem Noted Date Keratosis pilaris 05/27/2015 Idiopathic scoliosis 05/11/2009 Allergic rhinitis as of this encounter Resolved Problems Problem Noted Date Resolved Date Mass of right lung 12/19/2017 04/03/2018 Other specified urticaria 07/31/20042016 Asthma with severity to be determined 03/19/2017 Overview: ICD-10 update of inactive term as of this encounter Immunizations Name Dates Previously Given Next Due [...] 04/02/2003 TDAP (age 10 and older)(Boostrix) 11/20/2012 as of this encounter Social History Tobacco Use Types Packs/Day Years Used Date Never Smoker Smokeless Tobacco: Never Used Comments:Passive smoke expos ure at fathers every other weekend. Alcohol Use Drinks/Week oz/Week Comments Yes ocassional Sex Assigned at Date Recorded Not on file Job Start Date Occupation Industry Not on file Not on file Not on file Travel History Travel Start Travel End as of this encounter Last Filed Vital Signs Vital Sign Reading Time Taken Blood Pressure 104/64 05/21/2018 3:45 PM EST Pulse 72 05/21/2018 3:45 PM EST Temperature 37.3 C (99.1 F) 05/21/2018 3 :45 PM EST Respiratory Rate 16 05/21/2018 3:45 PM EST Oxygen Saturation - - Inhaled Oxygen Concentration - - Weight 60.8 kg (134 lb) 05/21/2018 3:45 PM EST Height - - Body Mass Index 25.32 05/21/2018 3:45 PM EST in this encounter Progress Notes * Rekha Raman PA-C - 05/21/2018 6:33 PM EST SUBJECTIVE: Aria Melgar is a 27 year old female. Chief Complaint Patient presents with Vaginal Discharge HPI: Patient is a 27 year old female who presents with vaginal itching, burning, and discharge. Recent course of antibiotics. Tried over the counter cream without effect. . Denies any urinary symptoms. Sexually active with one partner Patient Active Problem List Diagnosis Code Allergic rhinitis J30.9 Idiopathic scoliosis M41.20 Keratosis pilaris L85.8 Current Outpatient Medications Medication Sig Dispense Refill fluconazole (DIFLUCAN) 150 MG Tablet 1 tab every 3 days 3 Tab 0 sulfamethoxazole-trimethoprim 400-80 mg per tab (BACTRIM) 400-80 MG per tablet Take 1 Tab by mouth 2 times a day. 60 Tab 0 albuterol (PROAIR HFA) 108 (90 BASE) MCG/ACT inhaler Inhale 2 Puffs by mouth every 4 hours as needed for Wheezing. 1 Inhaler 1 fluticasone (FLONASE) 50 MCG/ACT nasal spray Administer 2 Sprays into each nostril 2 times a day. 1 Inhaler 5 FLUoxetine (PROZAC) 20 MG Capsule TAKE ONE CAPSULE BY MOUTH ONE TIME DAILY 30 Cap 11 Norgestim-Eth Estrad Triphasic (TRINESSA, 28,) 0.18/0.215/0.25 MG-35 MCG per Tablet Take 1 Tab by mouth daily. 1 Package 11 Phenazopyridine HCl (AZO DINE MAXIMUM STRENGTH) 97.5 MG TABS Take by mouth. triamcinolone acetonide (ARISTOCORT) 0.1 % cream Apply to rash on the back and abdomen twice daily Saturday thru 45 g 0 Review of patient's allergies indicates: No Known Allergies OBJECTIVE: BP 104/64 | Pulse 72 | Temp 99.1 | Resp 16 | Wt 134 lbs (60.782kg) | BMI 25.32 kg/m | BSA 1.62 m PHYSICAL EXAM: General: alert, healthy, no distress, well nourished, well developed and cooperative Abdomen: abdomen soft, non-tender, normal bowel sounds, no masses or organomegaly, no rebound or guarding, no CVA tenderness and no bladder distention identified Exam (Female): mild edema and erythema of external genitals. speculum exam revealed white exudates and mucosal erythema. ASSESSMENT: B37.3 Yeast vaginitis (primary encounter diagnosis) PLAN: B37.3 Yeast vaginitis (primary encounter diagnosis) Plan: Culture routine Chlamydia amplified Neisseria amplified Orders Placed This Encounter Medications fluconazole (DIFLUCAN) 150 MG Tablet Si tab every 3 days Dispense: 3 Tab Refill: 0 Follow up as needed. Rekha Raman PA-C in this encounter Nursing Notes * Rekha Raman PA-C - 05/21/2018 3:53 PM EST Vaginal discharge, itching, burning. Monostat did not work. in this encounter Plan of Treatment Pending Results Name Priority Associated Diagnoses Date/Ti me CULTURE ROUTINE Routine Yeast vaginitis 05/21/2018 4:45 PM EST CHLAMYDIA AMPLIFIED Routine Yeast vaginitis 05/21/2018 4:45 PM EST NEISSERIA AMPLIFIED Routine Yeast vaginitis 05/21/2018 4:45 PM EST Health Maintenance Due Date Last Done Comments PAP SMEAR-EVERY 3 YRS,AGES 21-65 03/20/2020 03/20/2017, 03/19/2017, 03/09/2014, Additional history exists DTaP,Tdap,and Td Vaccines (7 - Td) 11/20/2022 11/20/2012, 04/02/2003, 10/09/1996, Additional history exists *DEPRESSION SCREENING, ANNUAL FOR PTS 18 AND OVER Addressed 03/14/2015 (Discussed) Overridden with the intention of not completing the topic Influenza Vaccine (FLU shot) Completed 01/22/2018, 03/19/2017 (Done elsewhere), 03/11/2017, Additional history exists as of this encounter Implants Not on fileas of this encounter Visit Diagnoses Diagnosis Yeast vaginitis- Primary Candidiasis of vulva and vagina in this encounter Advance Directives Patient has advance care planning documents on file. For more information, please contact: [place] [phone]"
--- OUTSIDE RECORDS SUMMARY | 2023-01-03 01:48 | External Medical Summary | Summary of Care ---
Author Name Unknown Organization [place] [address] Care Team Providers Care Casting Associate Name Role Phone Clare Ireland MD Primary Care Provider [phone] Reason for Visit * Reason Comments Pt Portal Med Renewal Encounter Details Date Type Department Care Team Description 08/06/2019 Refill Family Practice [facility] [address] [place] [address] Tra Gimenez, [address] [place] [address] [phone] Acute non-recurrent maxillary sinusitis Allergies No Known Allergiesdocumented as of this encounter (statuses as of 08/06/2019) Medications Medication Sig Dispensed Refills Start Date End Date Status triamcinolone acetonide (ARISTOCORT) 0.1 % cream Apply to rash on the back and abdomen twice daily Saturday thru 45 g 0 03/28/2015 Active busPIRone (BUSPAR) 5 MG Tablet Take 1 Tab by mouth 2 times a day. 60 Tab 5 09/01/2018 Active FLUoxetine (PROZAC) 10 MG CapsuleIndicatio ns:NAA (generalized anxiety disorder) Take 1 Cap by mouth daily. Daily total of 30 mg. .Add to 20 mg tab 30 Cap 11 09/23/2018 Active FLUoxetine (PROZAC) 20 MG Capsule TAKE ONE CAPSULE BY MOUTH ONE TIME DAILY 30 Cap 10 09/30/2018 Active fluconazole (DIFLUCAN) 150 MG Tablet 1 tab every 3 days 3 Tab 0 01/12/2019 Active fluticasone (FLONASE) 50 MCG/ACT nasal sprayIndications [...] for Wheezing. 18 g 1 08/06/2019 Active albuterol (PROAIR HFA) 108 (90 BASE) MCG/ACT inhalerIndicatio ns:Acute non-recurrent maxillary sinusitis Inhale 2 Puffs by mouth every 4 hours as needed for Wheezing. 1 Inhaler 1 10/23/2017 08/06/2019 Discontinued (Refill) documented as of this encounter (statuses as of 08/06/2019) Active Problems Problem Noted Date Keratosis pilaris 05/27/2015 Idiopathic scoliosis 05/11/2009 Allergic rhinitis documented as of this encounter (statuses as of 08/06/2019) Resolved Problems Problem Noted Date Resolved Date Mass of right lung 12/19/2017 04/03/2018 Other specified urticaria 07/31/20042016 Asthma with severity to be determined 03/19/2017 Overview: ICD-10 update of inactive term documented as of this encounter (statuses as of 08/06/2019) Immunizations Name Administration Dates Next Due DTWP [...] Miscellaneous Notes * Telephone Encounter - Clare Ireland III, MD - 08/06/2019 9:55 AM EDT Signed Prescriptions: Disp Refills Albuterol Sulfate (ALBUTEROL HFA) 108 (90 *18 g 1 Sig: Inhale 2 Puffs by mouth every 4 hours as needed for Wheezing. Authorizing Provider: CLARE IRELAND III * Telephone Encounter - Gabby Winchester LPN - 08/06/2019 9:06 AM EDT Pending Prescriptions: Disp Refills Albuterol Sulfate (ALBUTEROL HFA) 108 (90* Sig: Inhale 2 Puffs by mouth every 4 hours as needed for Wheezing. Last Office Visit: 01/28/2019 Next Office Visit: No Future Appointments Last date the medication was ordered: 10.23.17 Patient Active Problem List Diagnosis Code Allergic [...] Value Status 05/23/11 1:11P 05/23/11 4.7 FINAL * Telephone Encounter - Gabby Winchester LPN - 08/06/2019 9:01 AM EDT Message from [facility]: Aria Castroroman would like a refill of the following medications: albuterol (PROAIR HFA) 108 (90 BASE) MCG/ACT inhaler [Tra Gimenez, DO] Preferred pharmacy: [id number] documented [...] Documents on File Type Date Recorded Patient Health Informatics Instructor Expl anation Advanced Directive Advanced Directive Advanced Directive Advanced Directive Advanced Directive Advanced Directive
--- OUTSIDE RECORDS SUMMARY | 2023-01-03 01:48 | External Medical Summary | Summary of Care ---
Author Name Unknown Organization [place] [address] Phone Care Team Providers Care Board Turner Name Role Phone Ilya Orozco III, MD Primary Care Provider [phone] Reason for Referral * Precert (Routine) Status Reason Specialty Diagnoses / Procedures Referred By Contact Referred To Contact Pending Review Precert Radiology Diagnoses Mass of right lung Procedures CT CHEST W CONTRAST Lamine Rekha BRANDON Baires [address] [place] [address] Reason for Visit * Reason Comments TEST RESULTS Unexpected or Indete rminate Result Encounter Details Date Type Department Care Team Description 12/18/2017 Telephone Family Practice [facility] [address] [place] [address] Rekha Raman PA-C [address] [place] [address] [phone] TEST RESULTS (Unexpected or Indeterminate ... Allergies No Known Allergiesas of this encounter Medications Prescription Sig. Disp. Refills Start Date End Date Status triamcinolone acetonide (ARISTOCORT) 0.1 % cream Apply to rash on the back and abdomen twice daily Saturday thru 45 g 0 03/28/2015 Active Phenazopyridine HCl (AZO DINE MAXIMUM STRENGTH) 97.5 MG TABS Take by mouth. Active Norgestim-Eth Estrad Triphasic (TRINESSA, 28,) 0.18/0.215/0.25 MG-35 MCG per Tablet Take 1 Tab by mouth daily. 1 Package 11 06/27/2017 Active FLUoxetine (PROZAC) 20 MG Capsule TAKE ONE CAPSULE BY MOUTH ONE TIME DAILY 30 Cap 11 09/10/2017 Active fluticasone (FLONASE) 50 MCG/ACT nasal sprayIndications:Ac meghan non-recurrent maxillary sinusitis Administer 2 Sprays into each nostril 2 times a day. 1 Inhaler 5 10/23/2017 Active albuterol (PROAIR HFA) 108 (90 BASE) MCG/ACT inhalerIndications: Acute non-recurrent maxillary sinusitis Inhale 2 Puffs by mouth every 4 hours as needed for Wheezing. 1 Inhaler 1 10/23/2017 Active levofloxacin (LEVAQUIN) 500 MG Tablet Take 1 Tab by mouth daily for 10 days. until gone. 10 Tab 0 12/16/2017 12/26/2017 Active as of this encounter Active Problems Problem Noted Date Mass of right lung 12/19/2017 Keratosis pilaris 05/27/2015 Idiopathic scoliosis 05/11/2009 Allergic rhinitis as of this encounter Resolved Problems Problem Noted Date Resolved Date Other specified urticaria 07/31/20042016 Asthma with severity to be determined 03/19/2017 Overview: ICD-10 update of inactive term as of this encounter Immunizations Name Dates Previously Given Next Due DTWP - Dipth/Tet/Whole Cell Pertussis ,03/18/1992,01/26/1992,10/1991 DTaP - Dipth/Tet/Acell Pertussis 10/09/1996 Haemophilus B (HIB) 12/22/1992, 2,01/26/1992,10/1991 Hepatitis B Vaccine 03/18/1992,1991,1991 Influenza Virus Vaccine 02/05/1996,02/19/1995 MMR - Measles/Mumps/Rubella Vaccine 10/09/1996,0 12/22/1992 Meningococcal Conjugate Vacc ine (MENACTRA/MENVEO) 05/11/2009 OPV - Polio Virus Vaccine (Oral) 997,12/22/1992,01/26/1992,10/1991 PPD 10/09/1996 Seasonal Influenza, Quadriva lent, No Preserve, IM [...] Assigned at Date Recorded Not on file as of this encounter Miscellaneous Notes * Telephone Encounter - Marci Mart OSA - 12/20/2017 8:[address] scheduled for 12/27/2017 * Telephone Encounter - Rekha Raman PA-C - 12/19/2017 6:00 PM EDT Called and spoke with patient and her mother. Will order ct scan. Please schedule. Thanks * Telephone Encounter - Rekha Raman PA-C - 12/19/2017 9:37 AM EDT Called at dentist office. * Telephone Encounter - Hailee Ferrara OSA - 12/18/2017 6:39 PM EDT Patient returning call to Rekha Raman. There was no messages to give patient when patient called after hours. Please call patient tomorrow at [phone]. * Telephone Encounter - Rekha Raman PA-C - 12/18/2017 6:26 PM EDT Called and asked patient to call back. * Telephone Encounter - Ashutosh Delgado OSA - 12/18/2017 10:54 AM EDT The radiologist discovered an unexpected or incidental finding on the above patient , and asks that you bring the XR CHEST report to the attention of Rekha RAMAN PA-C some time today. Thank you. in this encounter Plan of Treatment Upcoming Encounters Date Type Specialty Care Team Description 12/27/2017 Imaging Radiology Scheduled Tests Name Priority Associated Diagnoses Order S chedule CT CHEST W CONTRAST Routine Mass of right lung Expected: 06/17/2018 (Approximate), Expires: 12/19/2018 Health Maintenance Due Date Last Done Comments Influenza Vaccine (FLU shot) (#1) 2018 03/19/2017 (Done elsewhere), 03/11/2017, 03/14/2015, Additional history exists PAP SMEAR-EVERY 3 YRS,AGES 21-65 03/20/2020 03/20/2017, 03/19/2017, 03/09/2014, Additional history exists DTaP,Tdap,and Td Vaccines (7 - Td) 11/20/2022 11/20/2012, 04/02/2003, 10/09/1996, Additional history exists as of this encounter Implants Not on fileas of this encounter Visit Diagnoses Diagnosis Mass of right lung - Primary in this encounter
--- OUTSIDE RECORDS SUMMARY | 2023-01-03 01:48 | External Medical Summary | Summary of Care ---
Author Name Unknown Organization [place] [address] Care Team Providers Care Front End Wheel Loader Operator Name Role Phone Ilya Orozco MD Primary Care Provider [phone] Reason for Visit * Reason Comments Advice Encounter Details Date Type Department Care Team Description 02/06/2019 Telephone Family Practice [facility] [address] [place] [address] Rekha Raman PA-C [address] [place], [place] [id number] Advice Allergies No Known Allergiesdocumented as of this encounter (statuses as of 03/24/2019) Medications Medication Sig Dispensed Refills Start Date End Date Status triamcinolone acetonide (ARISTOCORT) 0.1 % cream Apply to rash on the back and abdomen twice daily Saturday thru 45 g 0 03/28/2015 Active albuterol (PROAIR HFA) 108 (90 BASE) MCG/ACT inhalerIndications:A cute non-recurrent maxillary sinusitis Inhale 2 Puffs by mouth every 4 hours as needed for Wheezing. 1 Inhaler 1 10/23/2017 Active TRI-PREVIFEM 0.18/0.215/0.25 MG-35 MCG per Tablet TAKE 1 TABLET BY MOUTH DAILY 28 Tab 11 06/29/2018 Active busPIRone (BUSPAR) 5 MG Tablet Take 1 Tab by mouth 2 times a day. 60 Tab 5 09/01/2018 Active FLUoxetine (PROZAC) 10 MG CapsuleIndications:G AD (generalized anxiety disorder) Take 1 Cap by mouth daily. Daily total of 30 mg. .Add to 20 mg tab 30 Cap 11 09/23/2018 Active FLUoxetine (PROZAC) 20 MG Capsule TAKE ONE CAPSULE BY MOUTH ONE TIME DAILY 30 Cap 10 09/30/2018 Active fluconazole (DIFLUCAN) 150 MG Tablet 1 tab every 3 days 3 Tab 0 01/12/2019 Active documented as of this encounter (statuses as of 03/24/2019) Active Problems Problem Noted Date Keratosis pilaris 05/27/2015 Idiopathic scoliosis 05/11/2009 Allergic rhinitis documented as of this encounter (statuses as of 03/24/2019) Resolved Problems Problem Noted Date Resolved Date Mass of right lung 12/19/2017 04/03/2018 Other specified urticaria 07/31/20042016 Asthma with severity to be determined 03/19/2017 Overview: ICD-10 update of inactive term documented as of this encounter (statuses as of 03/24/2019) Immunizations Name Administration Dates Next Due DTWP [...] encounter Miscellaneous Notes * Telephone Encounter - Carolina Santos LPN - 02/06/2019 9:07 AM EDT ----- Message from Rekha Raman PA-C sent at 02/05/2019 7:21 PM EDT ----- Please send abnormal lab letter. 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
--- OUTSIDE RECORDS SUMMARY | 2023-01-03 01:48 | External Medical Summary | Summary of Care ---
Author Name Unknown Organization [place] [address] Care Team Providers Care Nursery Rn Name Role Phone Clare Ireland MD Primary Care Provider [phone] Reason for Visit * Reason Comments eRx-Medication Refill Encounter Details Date Type Department Care Team Description 06/14/[address] [facility] [address] [place] [address] Clare Ireland III, MD [address] [place] [address] [phone] Allergies No Known Allergiesdocumented as of this encounter (statuses as of 06/15/2019) Medications Medication Sig Dispensed Refills Start Date End Date Status triamcinolone acetonide (ARISTOCORT) 0.1 % cream Apply to rash on the back and abdomen twice daily Saturday thru 45 g 0 03/28/2015 Active albuterol (PROAIR HFA) 108 (90 BASE) MCG/ACT inhalerIndicatio ns:Acute non-recurrent maxillary sinusitis Inhale 2 Puffs by mouth every 4 hours as needed for Wheezing. 1 Inhaler 1 10/23/2017 Active busPIRone (BUSPAR) 5 MG Tablet Take [...] MOUTH DAILY 84 Tab 2 06/15/2019 Active TRI-PREVIFEM 0.18/0.215/0.25 MG-35 MCG per Tablet TAKE 1 TABLET BY MOUTH DAILY 28 Tab 11 06/29/2018 0 Discontinued documented as of this encounter (statuses as of 06/15/2019) Active Problems Problem Noted Date Keratosis pilaris 05/27/2015 Idiopathic scoliosis 05/11/2009 Allergic rhinitis documented as of this encounter (statuses as of 06/15/2019) Resolved Problems Problem Noted Date Resolved Date Mass of right lung 12/19/2017 04/03/2018 Other specified urticaria 07/31/20042016 Asthma with severity to be determined 03/19/2017 Overview: ICD-10 update of inactive term documented as of this encounter (statuses as of 06/15/2019) Immunizations Name Administration Dates Next Due DTWP [...] encounter Miscellaneous Notes * Telephone Encounter - Darrell Temple RPh - 06/15/2019 9:51 AM EST Signed Prescriptions: Disp Refills TRI-LINYAH 0.18/0.215/0.25 MG-35 MCG per T*84 Tab 2 Sig: TAKE ONE TABLET BY MOUTH DAILY Authorizing Provider: CLARE IRELAND III User: DARRELL TEMPLE---- documented in this encounter Plan of Treatment [...] Documents on File Type Date Recorded Patient Claims Account Specialist Expl anation Advanced Directive Advanced Directive Advanced Directive Advanced Directive Advanced Directive Advanced Directive
--- OUTSIDE RECORDS SUMMARY | 2023-01-03 01:48 | External Medical Summary ---
Author Name Unknown Address Unknown Organization [facility] USE ONLY!!! Laboratory Report Ordering Provider Test Date Status 01/28/2019 12:48:00 Final Observation Date Value Abnormality Reference Status Source 01/28/2019 12:48 VAGINAL VAGINA Final Bacteria XXX Cult 01/31/2019 09:25 FEW BETA STREPTOCOCCUS GROUP B ORGANISM MAY BE ASSOCIATED WITH COLONIZATION Abnormal Final Bacteria XXX Cult 01/31/2019 09:25 HEAVY GROWTH NORMAL LAKHWINDER Final REPORT STATUS 02/01/2019 08:36 02/01/2019 FINAL Final Performing Location IT USE ONLY!!!
--- OUTSIDE RECORDS SUMMARY | 2023-01-03 01:48 | External Medical Summary | Summary of Care ---
Author Name Unknown Organization [place] [address] Care Team Providers Care Wafer Production Lead Worker Name Role Phone Ilya Orozco MD Primary Care Provider [phone] Reason for Visit * Reason Comments Med Request antibiotic Encounter Details Date Type Department Care Team Description 04/10/2018 Telephone Family Practice [facility] [address] [place] [address] Rekha Raman PA-C 200 [place] [address] [phone] Med Request (antibiotic ) Allergies No Known Allergiesas of this encounter [...] for Wheezing. 1 Inhaler 1 10/23/2017 Active PredniSONE (DELTASONE) 10 MG TabletIndication s:Acute maxillary sinusitis, recurrence not specified Take 5 tabs for 3 days, 4 tabs for 3 days, 3 tabs for 3 days, 2 tabs for 3 days 1 tab for 3 days 45 Tab 0 04/03/2018 Active sulfamethoxazole -trimethoprim 400-80 mg per tab (BACTRIM) 400-80 MG per tablet Take 1 Tab by mouth 2 times a day. 60 Tab 0 04/10/2018 Active doxycycline hyclate 100 MG CapsuleIndicatio ns:Acute maxillary sinusitis, recurrence not specified Take 1 Cap by mouth 2 times a day. 60 Cap 0 04/03/2018 8 Discontinued as of this encounter Active Problems [...] Start Travel End as of this encounter Miscellaneous Notes * Telephone Encounter - Nataly Wood CMA - 04/10/2018 1:42 PM EST Called patient. Patient verbalized understanding * Telephone Encounter - Rekha Raman PA-C - 04/10/2018 1:34 PM EST Switched to bactrim * Telephone Encounter - Coty Bell, LEONOR - 04/10/2018 10:50 AM EST PT called stating she was put on an antibiotic for 30 days but she stated the antibiotic is causingher nausea and is causing her to have some brain fog. PT is asking if she can have a different medication called in for her, please advise pt at [phone]. in this encounter Plan of Treatment Health [...] Implants Not on fileas of this encounter Advance Directives Patient has advance care planning documents on file. For more information, please contact: YENNIFER Ramirez [phone]
--- OUTSIDE RECORDS SUMMARY | 2023-01-03 01:48 | External Medical Summary ---
Author Name Unknown Address [address] [facility] [place] [address] Phone Organization K01:[facility] [address] [id number] Laboratory Report Ordering Provider Test Date Status 05/21/2018 16:45:00 Final Observation Date Value Abnormality Reference Status Source 05/21/2018 21:04 GENITAL VAGINA Final Bacteria XXX Cult 05/24/2018 07:33 HEAVY GROWTH NORMAL LAKHWINDER Final REPORT STATUS 05/24/2018 07:33 05/24/2018 FINAL Final Performing Location [facility] [address] [facility] [address]
--- OUTSIDE RECORDS SUMMARY | 2023-01-03 01:48 | External Medical Summary | Summary of Care ---
Author Name Unknown Organization [place] [address] Care Team Providers Care Distribution Systems Serviceperson Name Role Phone Ilya Orozco MD Primary Care Provider Unavailab le Reason for Visit * Reason Comments [facility] Renewal Encounter Details Date Type Department Care Team Description 06/24/2018 Refill Family Practice [facility] [address] [place] [address] Rekha Raman PA-C 200 [place] [address] [phone] Allergies No Known Allergiesdocumented as of this encounter (statuses as of 06/25/2018) Medications Medication Sig Dispensed Refills Start Date [...] 3 days 3 Tab 0 06/25/2018 Active fluconazole (DIFLUCAN) 150 MG Tablet 1 tab every 3 days 3 Tab 0 05/21/2018 9 Discontinued documented as of this encounter (statuses as of 06/25/2018) Active Problems Problem Noted Date Keratosis pilaris 05/27/2015 Idiopathic scoliosis 05/11/2009 Allergic rhinitis documented as of this encounter (statuses as of 06/25/2018) Resolved Problems Problem Noted Date Resolved Date Mass of right lung 12/19/2017 04/03/2018 Other specified urticaria 07/31/20042016 Asthma with severity to be determined 03/19/2017 Overview: ICD-10 update of inactive term documented as of this encounter (statuses as of 06/25/2018) Immunizations Name Dates Previously Given Next Due [...] Telephone Encounter - Rekha Raman PA-C - 06/25/2018 8:31 AM EST Signed Prescriptions: Disp Refills fluconazole (DIFLUCAN) 150 MG Tablet 3 Tab 0 Si tab every 3 days Authorizing Provider: REKHA RAMAN * Telephone Encounter - Ursula Salas LPN - 06/25/2018 7:50 AM EST Pending Prescriptions: Disp Refills fluconazole (DIFLUCAN) 150 MG Tablet 3 Tab 0 Si tab every 3 days Last Office Visit: 05/21/2018 Next Office Visit: No Future Appointments Last date the medication was ordered: 05/21/18 Patient Active Problem List Diagnosis Code Allergic [...] 05/23/11 4.7 FINAL * Telephone Encounter - Ursula Salas LPN - 06/25/2018 7:50 AM EST Message from EdgarWP Fail-Safesara: ----- Message from Sampson Caro sent at 06/24/2018 2:29 PM EST ----- Aria Melgar would like a refill of the following medications: fluconazole (DIFLUCAN) 150 MG Tablet [Auguste, PA-C] Preferred pharmacy: [id number] [...] For more information, please contact: YENNIFER Ramirez [phone]
--- OUTSIDE RECORDS SUMMARY | 2023-01-03 01:48 | External Medical Summary | Summary of Care ---
Author Name Unknown Organization [place] [address] Care Team Providers Care Aircraft Dispatcher Name Role Phone Clare Ireland MD Primary Care Provider [phone] Reason for Visit * Reason Comments [facility] Renewal Encounter Details Date Type Department Care Team Description 09/24/2018 Refill Family Practice [facility] [address] [place] [address] Tra Gimenez, [address] [place] [address] [phone] Acute non-recurrent maxillary sinusitis Allergies No Known Allergiesdocumented as of this encounter (statuses as of 09/24/2018) Medications Medication Sig Dispensed Refills Start Date End Date Status triamcinolone acetonide (ARISTOCORT) 0.1 % cream Apply to rash on the back and abdomen twice daily Saturday thru 45 g 0 03/28/2015 Active FLUoxetine (PROZAC) 20 MG Capsule TAKE ONE CAPSULE BY MOUTH ONE TIME DAILY 30 Cap 11 09/10/2017 Active albuterol (PROAIR HFA) 108 (90 BASE) [...] 09/23/2018 Active fluticasone (FLONASE) 50 MCG/ACT nasal sprayIndications :Acute non-recurrent maxillary sinusitis Administer 2 Sprays into each nostril 2 times a day. 1 Inhaler 5 09/24/2018 Active fluticasone (FLONASE) 50 MCG/ACT nasal sprayIndications :Acute non-recurrent maxillary sinusitis Administer 2 Sprays into each nostril 2 times a day. 1 Inhaler 5 10/23/2017 9 Discontinued documented as of this encounter (statuses as of 09/24/2018) Active Problems Problem Noted Date Keratosis pilaris 05/27/2015 Idiopathic scoliosis 05/11/2009 Allergic rhinitis documented as of this encounter (statuses as of 09/24/2018) Resolved Problems Problem Noted Date Resolved Date Mass of right lung 12/19/2017 04/03/2018 Other specified urticaria 07/31/20042016 Asthma with severity to be determined 03/19/2017 Overview: ICD-10 update of inactive term documented as of this encounter (statuses as of 09/24/2018) Immunizations Name Administration Dates Next Due DTWP [...] Encounter - Clare Ireland III, MD - 09/24/2018 11:40 AM EDT Signed Prescriptions: Disp Refills fluticasone (FLONASE) 50 MCG/ACT nasal spr*1 Inha*5 Sig: Administer 2 Sprays into each nostril 2 times a day. Authorizing Provider: CLARE IRELAND III * Telephone Encounter - Joanie Piedra LPN - 09/24/2018 11:35 AM EDT Pending Prescriptions: Disp Refills fluticasone (FLONASE) 50 MCG/ACT nasal sp*1 Inha*5 Sig: Administer 2 Sprays into each nostril 2 times a day. Last Office Visit: 09/23/2018 Next Office Visit: No Future Appointments Last date the medication was ordered: 10/23/17 Patient Active Problem List Diagnosis Code Allergic [...] 05/23/11 4.7 FINAL * Telephone Encounter - Joanie Piedra LPN - 09/24/2018 11:35 AM EDT Message from [facility]: ----- Message from Provider, Sampson sent at 09/24/2018 11:07 AM EDT ----- Aria Melgar would like a refill of the following medications: fluticasone (FLONASE) 50 MCG/ACT nasal spray [Tra Gimenez, DO] Preferred pharmacy: [id number] documented [...] Documents on File Type Date Recorded Patient Professor Of Psychiatry Expl anation Advanced Directive Advanced Directive Advanced Directive Advanced Directive Advanced Directive Advanced Directive
--- OUTSIDE RECORDS SUMMARY | 2023-01-03 01:48 | External Medical Summary | Summary of Care ---
Author Name Unknown Organization [place] [address] Care Team Providers Care Store Loss Prevention Manager Name Role Phone Clare Ireland MD Primary Care Provider [phone] Reason for Visit * Reason Comments Pt Portal Med Renewal Encounter Details Date Type Department Care Team Description 03/19/2019 Refill Family Practice [facility] [address] [place] [address] Clare Ireland III, MD [address] [place] [id number] Acute non-recurrent maxillary sinusitis Allergies No Known Allergiesdocumented as of this encounter (statuses as of 03/19/2019) Medications Medication Sig Dispensed Refills Start Date [...] .Add to 20 mg tab 30 Cap 09/23/2018 Active FLUoxetine (PROZAC) 20 MG Capsule TAKE ONE CAPSULE BY MOUTH ONE TIME DAILY 30 Cap 09/30/2018 Active fluconazole (DIFLUCAN) 150 MG Tablet 1 tab every 3 days 3 Tab 0 01/12/2019 Active fluticasone (FLONASE) 50 MCG/ACT nasal sprayIndications :Acute non-recurrent maxillary sinusitis Administer 2 Sprays into each nostril 2 times a day. 1 Inhaler 5 03/19/2019 Active fluticasone (FLONASE) 50 MCG/ACT nasal sprayIndications :Acute non-recurrent maxillary sinusitis Administer 2 Sprays into each nostril 2 times a day. 1 Inhaler 5 09/24/2018 03/19/2019 Discontinued (Refill) documented as of this encounter (statuses as of 03/19/2019) Active Problems Problem Noted Date Keratosis pilaris 05/27/2015 Idiopathic scoliosis 05/11/2009 Allergic rhinitis documented as of this encounter (statuses as of 03/19/2019) Resolved Problems Problem Noted Date Resolved Date Mass of right lung 12/19/2017 04/03/2018 Other specified urticaria 07/31/20042016 Asthma with severity to be determined 03/19/2017 Overview: ICD-10 update of inactive term documented as of this encounter (statuses as of 03/19/2019) Immunizations Name Administration Dates Next Due DTWP [...] Encounter - Clare Ireland III, MD - 03/19/2019 2:00 PM EST Signed Prescriptions: Disp Refills fluticasone (FLONASE) 50 MCG/ACT nasal spr*1 Inha*5 Sig: Administer 2 Sprays into each nostril 2 times a day. Authorizing Provider: CLARE IRELAND III * Telephone Encounter - Joanie Piedra LPN - 03/19/2019 1:35 PM EST Pending Prescriptions: Disp Refills fluticasone (FLONASE) 50 MCG/ACT nasal sp*1 Inha*5 Sig: Administer 2 Sprays into each nostril 2 times a day. Last Office Visit: 01/28/2019 Next Office Visit: No Future Appointments Last date the medication was ordered: 09/24/18 Patient Active Problem List Diagnosis Code Allergic [...] Telephone Encounter - Joanie Piedra LPN - 03/19/2019 1:35 PM EST Message from [facility]: Aria Melgar would like a refill of the following medications: fluticasone (FLONASE) 50 MCG/ACT nasal spray [Clare Ireland III, MD] Preferred pharmacy: [id number] [...] Documents on File Type Date Recorded Patient Shot Dropper Expl anation Advanced Directive Advanced Directive Advanced Directive Advanced Directive Advanced Directive Advanced Directive
--- OUTSIDE RECORDS SUMMARY | 2023-01-03 01:48 | External Medical Summary ---
Author Name Unknown Address Unknown Organization [facility] USE ONLY!!! Laboratory Report Ordering Provider Test Date Status 05/21/2018 16:45:00 Final Observation Date Value Abnormality Reference Status Source 05/21/2018 17:06 CERVIX Final N gonorrhoea rRNA XXX Ql PCR 05/22/2018 14:21 NO NEISSERIA GONORRHOEAE DETECTED BY CASHIER RECEPTIONIST-MEDIATE D NUCLEIC ACID AMPLIFICATION. NGCTMA Final comment 05/22/2018 14:21 APTIMA COMBO2 (AC2) UNISEX SWAB COLLECTION KIT IS FDA APPROVED FOR FEMALE ENDOCERVICAL AND MALE URETHRAL SPECIMENS. AC2 VAGINAL SWAB COLLECTION KIT IS FDA APPROVED FOR FEMALE VAGINAL SPECIMENS. Final Performing Location IT USE ONLY!!!
--- OUTSIDE RECORDS SUMMARY | 2023-01-03 01:48 | External Medical Summary ---
Author Name Unknown Address Unknown Organization [facility] USE ONLY!!! Laboratory Report Ordering Provider Test Date Status 05/21/2018 16:45:00 Final Observation Date Value Abnormality Reference Status Source 05/21/2018 17:06 CERVIX Final C trach rRNA XXX Ql PCR 05/22/2018 14:21 NO CHLAMYDIA TRACHOMATIS DETECTED BY SQL PROGRAMMER ANALYST-MEDIATE D NUCLEIC ACID AMPLIFICATION. [facility] Final comment 05/22/2018 14:21 APTIMA COMBO2 (AC2) UNISEX SWAB COLLECTION KIT IS FDA APPROVED FOR FEMALE ENDOCERVICAL AND MALE URETHRAL SPECIMENS. AC2 VAGINAL SWAB COLLECTION KIT IS FDA APPROVED FOR FEMALE VAGINAL SPECIMENS. Final Performing Location IT USE ONLY!!!
--- OUTSIDE RECORDS SUMMARY | 2023-01-03 01:48 | External Medical Summary | Summary of Care ---
Author Name Unknown Organization [place] [address] Care Team Providers Care Grocery Shopper Name Role Phone Ilya Orozco MD Primary Care Provider [phone] Reason for Visit * Reason Comments Acute sinus infection Encounter Details Date Type Department Care Team Description 04/03/2018 Office Visit Family Practice [facility] [address] [place] [address] Rekha Raman PA-C [address] [place] [address] [phone] Acute maxillary sinusitis, recurrence not specified* Allergies No Known Allergiesas of this encounter [...] Active fluticasone (FLONASE) 50 MCG/ACT nasal sprayIndications:Ac [place] non-recurrent maxillary sinusitis Administer 2 Sprays into each nostril 2 times a day. 1 Inhaler 5 10/23/2017 Active albuterol (PROAIR HFA) 108 (90 BASE) MCG/ACT inhalerIndications: Acute non-recurrent maxillary sinusitis Inhale 2 Puffs by mouth every 4 hours as needed for Wheezing. 1 Inhaler 1 10/23/2017 Active PredniSONE (DELTASONE) 10 MG TabletIndications:A cute maxillary sinusitis, recurrence not specified Take 5 tabs for 3 days, 4 tabs for 3 days, 3 tabs for 3 days, 2 tabs for 3 days 1 tab for 3 days 45 Tab 0 04/03/2018 Active doxycycline hyclate 100 MG CapsuleIndications: Acute maxillary sinusitis, recurrence not specified Take 1 Cap by mouth 2 times a day. 60 Cap 0 04/03/2018 Active as of this encounter Active Problems [...] Vital Sign Reading Time Taken Blood Pressure 114/68 04/03/2018 11:22 AM EST Pulse 74 04/03/2018 11:22 AM EST Temperature 36.6 C (97.8 F) 04/03/2018 1 1:22 AM EST Respiratory Rate 16 04/03/2018 11:2 2 AM EST Oxygen Saturation - - Inhaled Oxygen Concentration - - Weight 59 kg (130 lb) 04/03/2018 11:22 AM EST Height - - Body Mass Index 24.56 04/03/2018 11:22 AM EST in this encounter Progress Notes * Rekha Raman PA-C - 04/03/2018 5:21 PM EST SUBJECTIVE: Aria Melgar is a 27 year old female. Chief Complaint Patient presents with Acute sinus infection HPI: Patient is a 27 year old female who present with ongoing sinus congestion, earache, facial pressure, nasal congestion, pn drip, sore throat, and non- productive cough. Has been ongoing since summer. Patient Active Problem List Diagnosis Code Allergic rhinitis J30.9 Idiopathic scoliosis M41.20 Keratosis pilaris L85.8 Current Outpatient Medications Medication Sig Dispense Refill doxycycline hyclate 100 MG Capsule Take 1 Cap by mouth 2 times a day. 60 Cap 0 PredniSONE (DELTASONE) 10 MG Tablet Take 5 tabs for 3 days, 4 tabs for 3 days, 3 tabs for 3 days, 2 tabs for 3 days 1 tab for 3 days 45 Tab 0 albuterol (PROAIR HFA) 108 (90 [...] allergies indicates: No Known Allergies OBJECTIVE: BP 114/68 | Pulse 74 | Temp (Src) 97.8 (Tympanic) | Resp 16 | Wt 130 lbs (58.968kg) | BMI 24.56 kg/m | BSA 1.59 m PHYSICAL EXAM: General: alert, healthy, no distress, well nourished, well developed and cooperative Ears: External ears normal, Canals clear, R TM dull, L TM dull Nose: no septal hematoma, purulent rhinorrhea, mucosal edema, mucosal erythema Oropharynx: no exudate, lips, buccal mucosa, and tongue normal, mucous membranes are moist, mild erythema and post nasal drip Neck: supple, no adenopathy, no bruits, thyroid normal size, non-tender, without nodularity Heart: regular rate & rhythm, no murmurs and no gallops Lungs: chest symmetric with normal AP diameter, no chest deformities noted, no chest wall tenderness, lungs clear to auscultation ASSESSMENT: J01.00 Acute maxillary sinusitis, recurrence not specified (primary encounter diagnosis) PLAN: J01.00 Acute maxillary sinusitis, recurrence not specified (primary encounter diagnosis) Plan: Prednisone 10 mg po tabs Sig:Take 5 tabs for 3 days, 4 tabs for 3 days, 3 tabs for 3 days, 2 tabs for 3 days 1 tab for 3 days Doxycycline hyclate 100 mg po caps Sig:Take 1 cap by mouth 2 times a day. Will refer to ENT if persists. Follow up as needed. Rekha Raman PA-C in this encounter Nursing Notes * Nataly Wood, FORENSIC DOCUMENT EXAMINER - 04/03/2018 11:18 AM EST Pt presents today for a sinus infection has been occurring all summer and fall. Pt states this has been treated multiple times but has come back every time in this encounter Plan of Treatment Health Maintenance Due Date Last Done Comments Influenza Vaccine (FLU shot) (#1) 2017 03/19/2017 (Done elsewhere), 03/11/2017, 03/14/2015, Additional history exists PAP SMEAR-EVERY 3 YRS,AGES 21-65 03/20/2020 03/20/2017, 03/19/2017, 03/09/2014, Additional history exists DTaP,Tdap,and Td Vaccines (7 - Td) 11/20/2022 11/20/2012, 04/02/2003, 10/09/1996, Additional history exists *DEPRESSION SCREENING, ANNUAL FOR PTS 18 AND OVER Addressed 03/14/2015 (Discussed) Overridden with the intention of not completing the topic as of this encounter Implants Not on fileas of this encounter Visit Diagnoses Diagnosis Acute maxillary sinusitis, recurrence not specified- Primary in this encounter Advance Directives Patient has advance care planning documents on file. For more information, please contact: YENNIFER Ramirez [phone]"
--- OUTSIDE RECORDS SUMMARY | 2023-01-03 01:48 | External Medical Summary | Summary of Care ---
Author Name Unknown Organization [place] [address] Care Team Providers Care Welding Machine Operator Electro Gas Name Role Phone Clare Ireland MD Primary Care Provider [phone] Reason for Visit * Reason Comments eRx-Medication Refill Encounter Details Date Type Department Care Team Description 09/28/2018 Refill Family Practice [facility] [address] [place] [address] Clare Ireland III, MD [address] [place] [address] [phone] Allergies No Known Allergiesdocumented as of this encounter (statuses as of 09/30/2018) Medications Medication Sig Dispensed Refills Start Date [...] a day. 1 Inhaler 5 09/24/2018 Active FLUoxetine (PROZAC) 20 MG Capsule TAKE ONE CAPSULE BY MOUTH ONE TIME DAILY 30 Cap 10 09/30/2018 Active FLUoxetine (PROZAC) 20 MG Capsule TAKE ONE CAPSULE BY MOUTH ONE TIME DAILY 30 Cap 11 09/10/2017 9 Discontinued documented as of this encounter (statuses as of 09/30/2018) Active Problems Problem Noted Date Keratosis pilaris 05/27/2015 Idiopathic scoliosis 05/11/2009 Allergic rhinitis documented as of this encounter (statuses as of 09/30/2018) Resolved Problems Problem Noted Date Resolved Date Mass of right lung 12/19/2017 04/03/2018 Other specified urticaria 07/31/20042016 Asthma with severity to be determined 03/19/2017 Overview: ICD-10 update of inactive term documented as of this encounter (statuses as of 09/30/2018) Immunizations Name Administration Dates Next Due DTWP [...] Encounter - Clare Ireland III, MD - 09/30/2018 2:08 PM EDT Signed Prescriptions: Disp Refills FLUoxetine (PROZAC) 20 MG Capsule 30 Cap 10 Sig: TAKE ONE CAPSULE BY MOUTH ONE TIME DAILY Authorizing Provider: CLARE IRELAND III * Telephone Encounter - Leanne Sharma LPN - 09/30/2018 1:47 PM EDT Pending Prescriptions: Disp Refills FLUoxetine (PROZAC) 20 MG Capsule [Pharma*30 Cap 10 Sig: TAKE ONE CAPSULE BY MOUTH ONE TIME DAILY * Telephone Encounter - Leanne Sharma LPN - 09/30/2018 1:46 PM EDT Pending Prescriptions: Disp Refills FLUoxetine (PROZAC) 20 MG Capsule [Pharma*30 Cap 10 Sig: TAKE ONE CAPSULE BY MOUTH ONE TIME DAILY Last Office Visit: 09/23/2018 Next Office Visit: No Future Appointments Last date the medication was ordered: 09.10.17 Patient Active Problem List Diagnosis Code Allergic [...] Documents on File Type Date Recorded Patient Brine Purifier Expl anation Advanced Directive Advanced Directive Advanced Directive Advanced Directive Advanced Directive Advanced Directive
--- OUTSIDE RECORDS SUMMARY | 2023-01-03 01:48 | External Medical Summary | Summary of Care ---
Author Name Unknown Organization [place] [address] Care Team Providers Care Cash Applications Clerk Name Role Phone Ilya Orozco MD Primary Care Provider [phone] Reason for Visit * Reason Comments Pt Portal Med Renewal Encounter Details Date Type Department Care Team Description 08/12/2019 Refill Family Practice [facility] [address] [place] [address] Rekha Raman PA-C 200 [place] [address] [phone] Allergies No Known Allergiesdocumented as of this encounter (statuses as of 08/12/2019) Medications Medication Sig Dispensed Refills Start Date [...] 09/30/2018 Active fluticasone (FLONASE) 50 MCG/ACT nasal sprayIndications [...] 3 days 3 Tab 0 08/12/2019 Active fluconazole (DIFLUCAN) 150 MG Tablet 1 tab every 3 days 3 Tab 0 01/12/2019 08/12/2019 Discontinued (Refill) documented as of this encounter (statuses as of 08/12/2019) Active Problems Problem Noted Date Keratosis pilaris 05/27/2015 Idiopathic scoliosis 05/11/2009 Allergic rhinitis documented as of this encounter (statuses as of 08/12/2019) Resolved Problems Problem Noted Date Resolved Date Mass of right lung 12/19/2017 04/03/2018 Other specified urticaria 07/31/20042016 Asthma with severity to be determined 03/19/2017 Overview: ICD-10 update of inactive term documented as of this encounter (statuses as of 08/12/2019) Immunizations Name Administration Dates Next Due DTWP [...] Telephone Encounter - Rekha Raman PA-C - 08/12/2019 12:59 PM EDT Signed Prescriptions: Disp Refills fluconazole (DIFLUCAN) 150 MG Tablet 3 Tab 0 Si tab every 3 days Authorizing Provider: REKHA RAMAN * Telephone Encounter - Beth Acosta LPN - 08/12/2019 10:59 AM EDT Pending Prescriptions: Disp Refills fluconazole (DIFLUCAN) 150 MG Tablet 3 Tab 0 Si tab every 3 days Last Office Visit: 01/28/2019 Next Office Visit: No Future Appointments Last date the medication was ordered: 01/12/19 Patient Active Problem List Diagnosis Code Allergic [...] 05/23/11 4.7 FINAL * Telephone Encounter - Beth Acosta LPN - 08/12/2019 10:59 AM EDT Message from [employer]: Aria Melgar would like a refill of the following medications: fluconazole (DIFLUCAN) 150 MG Tablet [Rekha Raman PA-C] Preferred pharmacy: [id number] [...] Documents on File Type Date Recorded Patient Mathematics Department Chair Expl anation Advanced Directive Advanced Directive Advanced Directive Advanced Directive Advanced Directive Advanced Directive
--- OUTSIDE RECORDS SUMMARY | 2023-01-03 01:48 | External Medical Summary | Summary of Care ---
Author Name Unknown Organization [place] [address] Care Team Providers Care Precinct I Police Sergeant Name Role Phone Ilya Orozco MD Primary Care Provider [phone] Reason for Visit * Reason Comments Abnormal Test Results Encounter Details Date Type Department Care Team Description 03/06/2019 Telephone Family Practice [facility] [address] [place] [address] Rekha Raman [facility]C [facility] [phone] Abnormal Test Results Allergies No Known Allergiesdocumented as [...] Active fluticasone (FLONASE) 50 MCG/ACT nasal sprayIndications:Ac [place] non-recurrent maxillary sinusitis Administer 2 Sprays into [...] Telephone Encounter - Carolina Santos LPN - 03/12/2019 5:06 PM EST Called and spoke with pt and advised message below. Pt verbalized understanding. * Telephone Encounter - Rekha Raman PA-C - 03/12/2019 4:45 PM EST If she is asymptomatic, will hold for now. * Telephone Encounter - Malou Taylor RN - 03/12/2019 3:41 PM EST Pt says she never got an antibiotic. Is currently asymptomatic. Willing to take antibiotic if you still want her on it. * Telephone Encounter - Carolina Santos LPN - 03/10/2019 11:29 AM EST Attempted to call pt and advise. Pt did not answer. LMTRC. * Telephone Encounter - Rekha Raman PA-C - 03/06/2019 5:00 PM EDT This is from a month ago. Did we ever inform patient and get a pharmacy? * Telephone Encounter - Carolina Santos LPN - 03/06/2019 4:45 PM EDT Is a prescription being sent into pharmacy? ----- Message from Rekha Raman PA-C sent [...] Documents on File Type Date Recorded Patient Project Manager/Team Coach Expl anation Advanced Directive Advanced Directive Advanced Directive Advanced Directive Advanced Directive Advanced Directive
--- OUTSIDE RECORDS SUMMARY | 2023-01-03 01:48 | External Medical Summary | Summary of Care ---
Author Name Unknown Organization [place] [address] Care Team Providers Care Mini Bar Attendant Name Role Phone Ilya Orozco MD Primary Care Provider [phone] Reason for Visit * Reason Comments Follow Up Medication Administration Flu and/or Pne umo Inj Encounter Details Date Type Department Care Team Description 01/28/2019 [address] [facility] [address] [place] [address] Rekha Raman PA-C [address] [place] [address] [phone] Chronic vaginitis*; Need for prophylactic vaccination and inoculation against influenza Allergies No Known Allergiesdocumented as of this encounter (statuses as of 01/28/2019) Medications Medication Sig Dispensed Refills Start Date [...] as of this encounter (statuses as of 01/28/2019) Active Problems Problem Noted Date Keratosis pilaris 05/27/2015 Idiopathic scoliosis 05/11/2009 Allergic rhinitis documented as of this encounter (statuses as of 01/28/2019) Resolved Problems Problem Noted Date Resolved Date Mass of right lung 12/19/2017 04/03/2018 Other specified urticaria 07/31/20042016 Asthma with severity to be determined 03/19/2017 Overview: ICD-10 update of inactive term documented as of this encounter (statuses as of 01/28/2019) Immunizations Name Administration Dates Next Due DTWP [...] Travel End documented as of this encounter Last Filed Vital Signs Vital Sign Reading Time Taken Comments Blood Pressure 110/70 01/28/2019 11:07 AM EDT Pulse 66 01/28/2019 11:07 AM EDT Temperature 37.2 C (98.9 F) 01/28/2019 11:07 AM E DT Respiratory Rate 16 01/28/2019 11:07 AM EDT Oxygen Saturation - - Inhaled Oxygen Concentration - - Weight 59 kg (130 lb 0.6 oz) 01/28/2019 11:07 AM EDT Height 157.5 cm (5' 2") 01/28/2019 11:07 AM EDT Body Mass Index 23.78 01/28/2019 11:07 AM EDT documented in this encounter Progress Notes * Rekha Raman PA-C - 01/28/2019 6:35 PM EDT SUBJECTIVE: Aria Melgar is a 28 year old female. Chief Complaint Patient presents with Follow Up Medication Administration Flu and/or Pneumo Inj HPI: Patient is a 28-year-old female who presents today to discuss ongoing recurrences of vaginitis. Feels that she is basically had yeast infections on and off since taking antibiotics and steroids in the late winter. She just finished some Diflucan. She denies any itching or discharge. She is sexually active in a monogamous some miss relationship for over a year. Had STI testing back in May. Patient Active Problem List Diagnosis Code Allergic rhinitis J30.9 Idiopathic scoliosis M41.20 Keratosis pilaris L85.8 Current Outpatient Medications Medication Sig Dispense Refill fluconazole (DIFLUCAN) 150 MG Tablet 1 tab every 3 days 3 Tab 0 FLUoxetine (PROZAC) 20 MG Capsule TAKE ONE CAPSULE BY MOUTH ONE TIME DAILY 30 Cap 10 fluticasone (FLONASE) 50 MCG/ACT nasal spray Administer 2 Sprays into each nostril 2 times a day. 1 Inhaler 5 FLUoxetine (PROZAC) 10 MG Capsule Take 1 Cap by mouth daily. Daily total of 30 mg. .Add to 20 mg tab 30 Cap 11 busPIRone (BUSPAR) 5 MG Tablet Take 1 Tab by mouth 2 times a day. 60 Tab 5 TRI-PREVIFEM 0.18/0.215/0.25 MG-35 MCG per Tablet TAKE 1 TABLET BY MOUTH DAILY 28 Tab 11 albuterol (PROAIR HFA) 108 (90 BASE) MCG/ACT inhaler Inhale 2 Puffs by mouth every 4 hours as needed for Wheezing. 1 Inhaler 1 triamcinolone acetonide (ARISTOCORT) 0.1 % cream Apply to rash on the back and abdomen twice daily Saturday thru 45 g 0 Review of patient's allergies indicates: No Known Allergies OBJECTIVE: BP 110/70 | Pulse 66 | Temp (Src) 98.9 (Tympanic) | Resp 16 | Ht 5' 2" (1.575m) | Wt 130 lbs .64 oz(58.986kg) | BMI 23.78 kg/m | BSA 1.61 m PHYSICAL EXAM: General: alert, healthy, no distress, well nourished, well developed, comfortable and cooperative Exam (Female): external genitalia and vagina anatomy within normal limits, no vaginal discharge,cervix normal in appearance without lesions or purulent discharge, normal bimanual exam ASSESSMENT: N76.1 Chronic vaginitis (primary encounter diagnosis) Z23 Need for prophylactic vaccination and inoculation against influenza PLAN: Chronic vaginitis (Primary) - CULTURE, GENITAL, AEROBIC Need for prophylactic vaccination and inoculation against influenza - INFLUENZA VACC, QUAD, PF, 6 MONTHS & UP, 0.5 ML, IM Advised use of probiotic. Discussed other risk factors as far as related to intercourse and douching. Follow up as needed. Rekha Raman PA-C * Carolina Santos LPN - 01/28/2019 11:37 AM EDT PRE - ADMINISTRATION DOCUMENTATION Are you allergic to latex? No Are you experiencing any cold symptoms or fever? No Have you had Guillain-Sycamore Syndrome (an illness that causes paralysis)? No Have you had the flu shot in the past? YES Have you ever had a reaction to the flu shot? No Carolina Santos LPN, 01/28/2019 11:37 AM Immunization Administration Documentation Time Out Procedure [...] Nursing Notes * Carolina Santos LPN - 01/28/2019 11:07 AM EDT Pt presents today for chronic yeast infections. documented in this encounter Plan of Treatment Pending Results Name Type Priority Associated Diagnoses Date /Time CULTURE, GENITAL, AEROBIC Lab Routine Chronic vaginitis 01/28/2019 12:48 PM EDT Health Maintenance Due Date Last Done Comments Influenza Vaccine (FLU shot) (#1) 2019 01/22/2018, 03/19/2017 (Done elsewhere), 03/11/2017, Additional history exists PAP SMEAR-EVERY 3 YRS,AGES 21-65 03/20/2020 03/20/2017, 03/19/2017, 03/09/2014, Additional history exists DTaP,Tdap,and Td Vaccines (7 - Td) 11/20/2022 11/20/2012, 04/02/2003, 10/09/1996, Additional history exists MENINGOCOCCAL (MENACTRA) Completed 05/11/2009 *DEPRESSION SCREENING,ANNUAL FOR PTS 12 AND OVER Addressed 03/14/2015 (Discussed) Overridden with t he intention of not completing the topic Pneumococcal Vaccine: Pediatrics (0 to 5 Years) and At-Risk Patients (6 to 64 Years) Aged Out No longer eligible based on patient's age to complete this topic documented as of this encounter Implants Not on filedocumented as of this encounter Visit Diagnoses Diagnosis Chronic vaginitis- Primary Vaginitis and vulvovaginitis, unspecified Need for prophylactic vaccination and inoculation against influenza documented in this encounter Advance Directives Documents on File Type Date Recorded Patient Sales Administration Specialist Expl anation Advanced Directive Advanced Directive Advanced Directive Advanced Directive Advanced Directive Advanced Directive
--- OUTSIDE RECORDS SUMMARY | 2023-01-03 01:48 | External Medical Summary | Summary of Care ---
Author Name Unknown Organization [place] [address] Care Team Providers Care Binding Dyer Name Role Phone Ilya Orozco MD Primary Care Provider Reason for Visit * Reason Comments Follow Up Encounter Details Date Type Department Care Team Description 09/23/2018 Office Visit Family Practice [facility] [address] [place] [address] Rekha Raman PA-C 200 [facility] [place] [phone] NAA (generalized anxiety disorder)*; Non-seasonal allergic rhinitis due to pollen; Sinus congestion Allergies No Known Allergiesdocumented as of this encounter (statuses as of 09/23/2018) Medications Medication Sig Dispensed Refills Start Date [...] mg tab 30 Cap 11 09/23/2018 Active Phenazopyridine HCl (AZO DINE MAXIMUM STRENGTH) 97.5 MG TABS Take by mouth. 0 9 Discontinued sulfamethoxazole -trimethoprim 400-80 mg per tab (BACTRIM) 400-80 MG per tablet Take 1 Tab by mouth 2 times a day. 60 Tab 0 04/10/2018 9 Discontinued fluconazole (DIFLUCAN) 150 MG Tablet 1 tab every 3 days 3 Tab 0 06/25/2018 9 Discontinued documented as of this encounter (statuses as of 09/23/2018) Active Problems Problem Noted Date Keratosis pilaris 05/27/2015 Idiopathic scoliosis 05/11/2009 Allergic rhinitis documented as of this encounter (statuses as of 09/23/2018) Resolved Problems Problem Noted Date Resolved Date Mass of right lung 12/19/2017 04/03/2018 Other specified urticaria 07/31/20042016 Asthma with severity to be determined 03/19/2017 Overview: ICD-10 update of inactive term documented as of this encounter (statuses as of 09/23/2018) Immunizations Name Administration Dates Next Due DTWP [...] Sign Reading Time Taken Comments Blood Pressure 102/78 09/23/2018 4:21 PM EDT Pulse 62 09/23/2018 4:21 PM EDT Temperature 36.9 C (98.5 F) 09/23/2018 4:21 PM ED T Respiratory Rate 16 09/23/2018 4:21 PM EDT Oxygen Saturation - - Inhaled Oxygen Concentration - - Weight 58.1 kg (128 lb 0.6 oz) 09/23/2018 4:21 P M EDT Height - - Body Mass Index 24.19 11/14/2017 1:23 PM EDT documented in this encounter Progress Notes * Rekha Raman PA-C - 09/23/2018 7:00 PM EDT SUBJECTIVE: Aria Melgar is a 28 year old female. Chief Complaint Patient presents with Follow Up HPI: Patient is a 28-year-old female who presents today with several concerns. For cystic talk about anxiety issues. Been under lot of stress but has got gets attacks of hyperventilation crying. She is currently taking 20 mg Prozac. Had prescribed use abner is never taken. She denies any suicidal homicidal thoughts. She mowed stump Jorge appetite and interest levels. Also notes recurring sinus infections. Is taking Whitney 180 mg daily. Patient Active Problem List Diagnosis Code Allergic rhinitis J30.9 Idiopathic scoliosis M41.20 Keratosis pilaris L85.8 Current Outpatient Medications Medication Sig Dispense Refill FLUoxetine (PROZAC) 10 MG Capsule Take 1 [...] MOUTH ONE TIME DAILY 30 Cap 11 triamcinolone acetonide (ARISTOCORT) 0.1 % cream Apply to rash on the back and abdomen twice daily Saturday thru 45 g 0 Review of patient's allergies indicates: No Known Allergies OBJECTIVE: BP 102/78 | Pulse 62 | Temp (Src) 98.5 (Tympanic) | Resp 16 | Wt 128 lbs .64 oz (58.079kg) | BMI 24.19 kg/m | BSA 1.58 m PHYSICAL EXAM: General: alert, healthy, no [...] wall tenderness, lungs clear to auscultation ASSESSMENT: F41.1 NAA (generalized anxiety disorder) (primary encounter diagnosis) J30.1 Non-seasonal allergic rhinitis due to pollen R09.81 Sinus congestion PLAN: NAA (generalized anxiety disorder) (Primary) - FLUoxetine (PROZAC) 10 MG Capsule; Take 1 Cap by mouth daily. Daily total of 30 mg. .Add to 20 mgtab Non-seasonal allergic rhinitis due to pollen Sinus congestion Encourage regular Flonase use of no improvement will consider cough allergy consultation. Follow up as needed. Rekha Raman PA-C documented in this encounter Nursing Notes * Niyah Londono LPN - 09/23/2018 4:17 PM EDT Pt in today for a follow up to talk about her anxiety medication. Pt conveys that she does not wantto take a pill every day, just when she needs it documented in this encounter Plan of Treatment [...] as of this encounter Visit Diagnoses Diagnosis NAA (generalized anxiety disorder)- Primary Generalized anxiety disorder Non-seasonal allergic rhinitis due to pollen Sinus congestion Other diseases of nasal cavity and sinuses documented in this encounter Advance Directives Documents on File Type Date Recorded Patient Telephone Solicitor Expl anation Advanced Directive Advanced Directive Advanced Directive Advanced Directive Advanced Directive Advanced Directive"
--- OUTSIDE RECORDS SUMMARY | 2023-01-03 01:49 | External Medical Summary ---
Author Name Unknown Address [facility] [place] [address] Phone Organization K01:[facility] [address] [id number] Laboratory Report Ordering Provider Test Date Status 05/23/2017 16:41:00 Final Observation Date Value Abnormality Reference Status Choriogonadotropin.intact+Be ta subunit [Units/volume] in Serum or Plasma 05/23/2017 22:28 <0.1 0-1 Final Performing Location [facility] [address] [facility] [address]
--- OUTSIDE RECORDS SUMMARY | 2023-01-03 01:49 | External Medical Summary | Summary of Care ---
Author Name Unknown Organization [place] [address] Phone Care Team Providers Care Facilities Plant Engineer Name Role Phone Ilya Orozco III, MD Primary Care Provider [phone] Reason for Visit * Reason Comments COUGH Head and chest cold 12 weeks Encounter Details Date Type Department Care Team Description 12/16/2017 Office Visit Family Practice [facility] [address] [place] [address] Rekha Raman PA-C [address] [place] [address] [phone] Acute serous otitis media of left ear, recurrence not specified*;Cough;Conta ct with and suspected exposure to communicable disease Allergies No Known Allergiesas of this encounter [...] 09/10/2017 Active fluticasone (FLONASE) 50 MCG/ACT nasal sprayIndications:A cute non-recurrent maxillary sinusitis Administer 2 Sprays into each nostril 2 times a day. 1 Inhaler 5 10/23/2017 Active albuterol (PROAIR HFA) 108 (90 BASE) MCG/ACT inhalerIndications :Acute non-recurrent maxillary sinusitis Inhale 2 Puffs by mouth every 4 hours as needed for Wheezing. 1 Inhaler 1 10/23/2017 Active levofloxacin (LEVAQUIN) 500 MG Tablet Take 1 Tab by mouth daily for 10 days. until gone. 10 Tab 0 12/16/2017 8 Active amoxicillin (AMOXIL) 500 MG CapsuleIndications :Left non-suppurative otitis media 11/12/2017 8 Discontinued as of this encounter Active [...] Not on file as of this encounter Last Filed Vital Signs Vital Sign Reading Time Taken Blood Pressure 114/68 12/16/2017 3:24 PM EDT Pulse 80 12/16/2017 3:24 PM EDT Temperature 37.4 C (99.4 F) 12/16/2017 3 :24 PM EDT Respiratory Rate 16 12/16/2017 3:24 PM EDT Oxygen Saturation 99% 12/16/2017 3:2 4 PM EDT Inhaled Oxygen Concentration - - Weight 57.6 kg (127 lb) 12/16/2017 3:24 PM EDT Height - - Body Mass Index 24 12/16/2017 3:24 PM EDT in this encounter Progress Notes * Rekha Raman PA-C - 12/16/2017 5:31 PM EDT Formatting of this note may be different from the original. SUBJECTIVE: Aria Melgar is a 27 year old female. Chief Complaint Patient presents with COUGH Head and chest cold 12 weeks HPI: The patient is a 27-year-old female who presents today with ongoing respiratory symptoms. See the 29 of October diagnosed with sinusitis placed on Omnicef and prednisone. Of and developed some intense ear pain was seen in the emergency room and diagnosed with otitis media and placed on amoxicillin on the 11 of November. The 14 of November she made office visit was placed on Oxy Floxin ear drops. She continues to have nasal congestion, cough, chest heaviness, wheezing, headache, postnasal drip, and sore throat. Patient Active Problem List Diagnosis Code Allergic rhinitis J30.9 Idiopathic scoliosis M41.20 Keratosis pilaris L85.8 Current Outpatient Prescriptions Medication Sig Dispense Refill levofloxacin (LEVAQUIN) 500 MG Tablet Take 1 Tab by mouth daily for 10 days. until gone. 10 Tab0 albuterol (PROAIR HFA) 108 (90 BASE) MCG/ACT [...] Known Allergies OBJECTIVE: BP 114/68 | Pulse 80 | Temp (Src) 99.4 (Tympanic) | Resp 16 | Wt 127 lbs (57.607kg) | BMI 24 kg/m| BSA 1.57 m | SaO2 99% | LMP 12/11/2017 PHYSICAL EXAM: General: alert, healthy, no distress, well nourished, well developed and cooperative Ears: External ears normal, Canals clear, R TM normal, L TM dull and erythematous Nose: no septal hematoma, purulent rhinorrhea, mucosal [...] wall tenderness, lungs clear to auscultation ASSESSMENT: H65.02 Acute serous otitis media of left ear, recurrence not specified (primary encounter diagnosis) R05 Cough Z20.9 Contact with and suspected exposure to communicable disease PLAN: H65.02 Acute serous otitis media of left ear, recurrence not specified (primary encounter diagnosis) R05 Cough Plan: Xr chest 2 views Z20.9 Contact with and suspected exposure to communicable disease Plan: Chlamydia amplified Neisseria amplified Chlamydia amplified Neisseria amplified Orders Placed This Encounter Medications levofloxacin (LEVAQUIN) 500 MG Tablet Sig: Take 1 Tab by mouth daily for 10 days. until gone. Dispense: 10 Tab Refill: 0 Follow up as needed. Rekha Raman PA-C in this encounter Nursing Notes * Steve Weiner LPN - 12/16/2017 3:23 PM EDT Formatting of this note may be different from the original. Chief Complaint Patient presents with COUGH Head and chest cold 12 weeks in this encounter Plan of Treatment Pending Results Name Priority Associated Diagnoses Date/Ti me CHLAMYDIA AMPLIFIED Routine Contact with and suspected exposure to communicable disease 12/16/2017 3:30 PM EDT NEISSERIA AMPLIFIED Routine Contact with and suspected exposure to communicable disease 12/16/2017 3:30 PM EDT XR CHEST 2 VIEWS Routine Cough 12/16/2017 4:46 PM EDT Scheduled Tests Name Priority Associated Diagnoses Order S chedule CHLAMYDIA AMPLIFIED Routine Contact with and suspected exposure to communicable disease Expected: 12/16/2017 (Approximate), Expires: 12/16/2018 NEISSERIA AMPLIFIED Routine Contact with and suspected exposure to communicable disease Expected: 12/16/2017, Expires: 01/16/2019 Health Maintenance Due Date Last Done Comments Influenza Vaccine (FLU shot) (#1) 2018 03/19/2017 (Done elsewhere), 03/11/2017, 03/14/2015, Additional history exists PAP SMEAR-EVERY 3 YRS,AGES 21-65 03/20/2020 03/20/2017, 03/19/2017, 03/09/2014, Additional history exists DTaP,Tdap,and Td Vaccines (7 - Td) 11/20/2022 11/20/2012, 04/02/2003, 10/09/1996, Additional history exists as of this encounter Implants Not on fileas of this encounter Visit Diagnoses Diagnosis Acute serous otitis media of left ear, recurrence not specified - Primary Cough Contact with and suspected e xposure to communicable disease Contact with or exposure to unspecified communicable disease in this encounter"
--- OUTSIDE RECORDS SUMMARY | 2023-01-03 01:49 | External Medical Summary | Summary of Care ---
Author Name Unknown Organization [place] [address] Phone Care Team Providers Care Speed Operator Name Role Phone Ilya Orozco III, MD Primary Care Provider [phone] Reason for Visit * Reason Comments ADVICE Encounter Details Date Type Department Care Team Description 10/21/2017 Telephone Family Practice [facility] [address] [place] [address] Ilya Orozco III, MD [address] [place] [address] [phone] ADVICE Allergies No Known Allergiesas of this encounter [...] TIME DAILY 30 Cap 11 09/10/2017 Active PredniSONE (DELTASONE) 10 MG TabletIndications:Sea stewart allergic rhinitis, unspecified trigger Take 5 tabs for 2 days, 4 tabs for 2 days, 3 tabs for 2 days, 2 tabs for 2 days 1 tab for 2 days 30 Tab 0 10/10/2017 Active as of this encounter Active Problems [...] encounter Miscellaneous Notes * Telephone Encounter - Kelsi Paz RN - 10/21/2017 4:09 PM EDT Pt has been notified and appt scheduled for Saturday as she prefers to see Kristine Villarreal again * Telephone Encounter - Kristine Villarreal PA-C - 10/21/2017 3:07 PM EDT Can offer OV for recheck, exam for possible bronchitis/pneumonia * Telephone Encounter - Bing Zuniga LPN - 10/21/2017 3:03 PM EDT Patient verbalized understanding of below message. She stated it's not so much her sinuses. Since finishing prednisone her cough is now productive. * Telephone Encounter - Kristine Villarreal PA-C - 10/21/2017 9:37 AM EDT Please call to advise: Patient can try flonase and to continue claritin. If severe sinus pain/pressure or fevers, recheck in the office If still no improvement with the flonase, consider referral to allergy * Telephone Encounter - Ilya Orozco III, MD - 10/21/2017 9:16 AM EDT Thoughts? You saw * Telephone Encounter - Jessica Middleton OSA - 10/21/2017 8:20 AM EDT Pt calling in stating that while she was on prednisone she felt like her symptoms were getting better, but she finished her course of it on Saturday and ever since, feels like her symptoms are getting worse again. She is not sure what to do next. Please call to advise. Thank you. in this encounter Plan of Treatment Upcoming Encounters Date Type Specialty Care Team Description 10/23/2017 Office Visit Family Medicine Kristine Villarreal PA-C [address] [place] [address] [place] [address] [phone] Health Maintenance Due Date Last Done Comments PAP SMEAR-EVERY 3 YRS,AGES 21-65 03/20/2020 03/20/2017, 03/19/2017, 03/09/2014, Additional history exists DTaP,Tdap,and Td Vaccines (7 - Td) 11/20/2022 11/20/2012, 04/02/2003, 10/09/1996, Additional history exists Influenza Vaccine (FLU shot) Addressed 03/19/2017 (Done elsewhere), 03/11/2017, 03/14/2015, Additional history exists Overridden with the intention of not completing the topic as of this encounter Implants Not on fileas of this encounter
--- OUTSIDE RECORDS SUMMARY | 2023-01-03 01:49 | External Medical Summary | Summary of Care ---
Author Name Unknown Organization [place] [address] Phone Care Team Providers Care Day Camp Unit Leader Name Role Phone Ilya Orozco III, MD Primary Care Provider [phone] Reason for Visit * Reason Comments MyCode Nonconsent - Not interested at th is time Encounter Details Date Type Department Care Team Description 10/10/2017 Orders Only Outcomes Research Department [address] [facility] [place] [address] Leda Correa CHRA MyCode Nonconsent Documentation Allergies No Known Allergiesas of this encounter [...] Not on file as of this encounter Progress Notes * Leda Correa CHRA - 10/10/2017 1:46 PM EDT MyCode Nonconsent Documentation Aria Melgar was approached in the clinic regarding participation in the MyCode Project and did not consent. in this encounter Plan of Treatment Health [...]
--- OUTSIDE RECORDS SUMMARY | 2023-01-03 01:49 | External Medical Summary | Summary of Care ---
Author Name Unknown Organization [place] [address] Phone Care Team Providers Care Curer Foam Rubber Name Role Phone Ilya Orozco III, MD Primary Care Provider [phone] Reason for Visit * Reason Comments PAP Encounter Details Date Type Department Care Team Description 03/19/2017 Office Visit Family Practice [facility] [address] [place] [address] Rekha Raman PA-C [address] [place] [address] [phone] Well adult exam*;Encounter for gynecological examination without abnormal finding Allergies No Known Allergiesas of this encounter Medications Prescription Sig. Disp. Refills Start Date End Date Status ketoconazole 2 % shampoo Apply topically to affected area every 3 days. Apply to rash on the back and abdomen daily x 1 week, then weekly 120 mL 1 03/28/2015 Active triamcinolone acetonide (ARISTOCORT) 0.1 % cream Apply to rash on the back and abdomen twice daily Saturday thru 45 g 0 03/28/2015 Active FLUoxetine (PROZAC) 20 MG Capsule TAKE ONE CAPSULE BY MOUTH ONE TIME DAILY 30 Cap 11 09/03/2016 Active Phenazopyridine HCl (AZO DINE MAXIMUM STRENGTH) 97.5 MG TABS Take by mouth. Active as of this encounter Active Problems [...] Vital Sign Reading Time Taken Blood Pressure 100/68 03/19/2017 2:27 PM EST Pulse 84 03/19/2017 2:27 PM EST Temperature 37.2 C (98.9 F) 03/19/2017 2 :27 PM EST Respiratory Rate 16 03/19/2017 2:27 PM EST Oxygen Saturation - - Inhaled Oxygen Concentration - - Weight 57.2 kg (126 lb 0.6 oz) 03/19/20 17 2:27 PM EST Height - - Body Mass Index 23.82 03/19/2017 2:27 PM EST in this encounter Progress Notes * Rekha Raman PA-C - 03/19/2017 4:51 PM EST Formatting of this note may be different from the original. Aria Melgar is a 26 year old female who presents for an annual check-up. Current concerns: Patient is going off oral contraceptives is trying to get . Past Medical History: Diagnosis Date Allergic rhinitis Status asthmaticus September 1994 Hospitalized at [facility] Varicella without complication May 1994 Past Surgical History: Procedure Laterality Date DENTAL SURGERY PROCEDURE NEC Dental Surgery Procedure NONE Current Outpatient Prescriptions Medication Sig Dispense Refill Phenazopyridine HCl (AZO DINE MAXIMUM STRENGTH) 97.5 MG TABS Take by mouth. FLUoxetine (PROZAC) 20 MG Capsule TAKE ONE CAPSULE BY MOUTH ONE TIME DAILY 30 Cap 11 ketoconazole 2 % shampoo Apply topically to affected area every 3 days. Apply to rash on the back and abdomen daily x 1 week, then weekly 120 mL 1 triamcinolone acetonide (ARISTOCORT) 0.1 % cream Apply to rash on the back and abdomen twice daily Saturday thru 45 g 0 Review of patient's allergies indicates: No Known Allergies Social History Social History Marital status: Single Spouse name: N/A Number of children: N/A Years of education: N/A Occupational History Not on file. Social History Main Topics Smoking status: Never Smoker Smokeless tobacco: Never Used Comment: Passive smoke exposure at fathers every other weekend. Alcohol use Yes Comment: ocassional Drug use: No Comment: denies Sexual activity: Yes Partners: Male Other Topics Concern Service No Blood Transfusions No Caffeine Concern No Occupational Exposure No Hobby Hazards No Sleep Concern No Stress Concern No Weight Concern No Special Diet No Back Care No Exercise No Seat Belt Yes Social History Narrative [employer] INFORMATION ENIVIRONMENTAL HISTORY: House: Ranch Type of Heating System: Electric and Wood Air Conditioning: Yes Central Basement: Finished, Carpeted rooms, Dampness, Dehumidifier and No evidence mold, mildew Home have cockroaches: No Irritants in the home: Scented Candles Patient's bedroom: FLOOR: first TYPE OF ANDERSON: Carpeting and Linoleum Beds: AMOUNT : 1 TYPE OF BEDS: Mattress and Box spring Pillows: AMOUNT: 1 TYPE OF PILLOWS: Synthetic (hypoallergenic, polyester) Bedroom contains: Stuffed animals Pets: 2 parakeet bird(s) and 1 dog(s) Lives on a farm: No At father's home every other weekend; + smoke and dog exposure. Entered By: Kris Mccormick MD 07/31/2004 Family History Problem Relation Age of Onset Cancer Mother precancerous cervical cancer Musculo-skeletal Disorder Mother back No Past Hx Father Heart Disorder Paternal Grandfather Asthma cousin [OTHER] Cancer Paternal Grandmother lung Cancer Aunt paternal aunt Review Of Systems Skin: negative Eyes: negative Ears/Nose/Throat: negative Respiratory: negative Cardiovascular: negative Gastrointestinal: negative Genitourinary: negative Musculoskeletal: pt denies significant joint pain or stiffness Neurologic: negative Psychiatric: negative Hematologic/Lymphatic/Immunologic: negative Endocrine: negative Gynecologic:Patient's last menstrual period was 02/28/2017 (approximate)., PHYSICAL EXAMINATION: BP 100/68 | Pulse 84 | Temp (Src) 98.9 (Tympanic) | Resp 16 | Wt 126 lbs .64 oz (57.171kg) | BMI 23.82 kg/m | BSA 1.57 m | LMP 02/28/2017 General appearance - well nourished, comfortable. Skin - no rashes or lesions suspicious for malignancy. Eyes - conjuctiva clear, EOMI, nondilated limited fundoscopic exam without obvious pathology. Ears - canals clear, TMs normal. Nose/Sinuses - normal mucosa without mass. Oropharynx -no oral lesions. Neck - normal ROM, supple, without adenopathy, thyromegaly, or bruit. Lungs - symmetric and full breath sounds without rales, rhonchi, or wheezes. Heart - normal precordial impulse, PMI nondisplaced, normal S1,S2, without murmurs, rubs, or gallops. carotid upstrokes 2/4 without bruit. Breasts - symmetric, no masses or tenderness, axillae negative. Abdomen - nondistended, no organomegaly, nontender to palpation,bowel sounds active Extremities - no cyanosis, clubbing, or edema. Peripheral pulses - symmetric and intact. Pelvic-external genitalia without lesion. speculum exam revealed Vagina and cervix clear, mucosa pink. bimanual exam unremarkable for masses or tenderness. Rectal - no rectal masses. ASSESSMENT/PLAN: (Z00.00) Well adult exam (primary encounter diagnosis) Plan: Z00.00 Well adult exam (primary encounter diagnosis) Z01.419 Encounter for gynecological examination without abnormal finding Plan: Chlamydia amplified Self breast exam instructions Pap screen in this encounter Plan of Treatment Scheduled Tests Name Priority Associated Diagnoses Order S chedule PAP SCREEN Routine Encounter for gynecological examination without abnormal finding Ordered: 03/19/2017 CHLAMYDIA AMPLIFIED Routine Encounter for gynecological examination without abnormal finding Ordered: 03/19/2017 Health Maintenance Due Date Last Done Comments GARDASIL-HPV IMMUNIZATION SERIES (3 of 3 - Female 3 Dose Series) 07/13/2015 03/14/2015 (Not indicated), 03/09/2014 (Refused) PAP SMEAR-EVERY 3 YRS,AGES 21-65 03/19/2020 03/19/2017, 03/09/2014, 11/20/2012, Additional history exists TETANUS EVERY 10 YRS-TDAP (BOOSTRIX/ADACEL) SUGGESTED IF NOT RECEIVED IN PAST 11/20/2022 11/20/2012, 04/02/2003, 10/09/1996 *ASTHMA ACTION PLAN-ADULT YEARLY Addressed 03/14/2015 (Not indicated) Overridden with the intention of not completing the topic Influenza Vaccine (FLU shot) Addressed 03/19/2017 (Done elsewhere), 03/14/2015, 03/09/2014, Additional history exists Overridden with the intention of not completing the topic PNEUMOCOCCAL 19-64 MEDIUM RISK Addressed 03/19/2017 (Not indicated) Overridden with the intention of not completing the topic as of this encounter Implants Not on fileas of this encounter Visit Diagnoses Diagnosis Well adult exam - Primary Routine general medical examination at a health care facility Encounter for gynecological examination without abnormal finding Routine gynecological examination in this encounter Insurance Payer Benefit Plan / Group Subscriber ID Type Phone Address [employer] [place]ASSAN [id number] 1 as of this encounter"
--- OUTSIDE RECORDS SUMMARY | 2023-01-03 01:49 | External Medical Summary ---
Author Name Unknown Address Unknown Organization [facility]:Performed at [address] [address] Laboratory Report Ordering Provider Test Date Status 03/20/2017 10:13:00 Final Observation Date Value Abnormality Reference Status Source 03/20/2017 10:14 CERVIX Final Chlamydia trachomatis rRNA [Presence] in Unspecified specimen by Probe and target amplification method 03/21/2017 15:22 NO CHLAMYDIA TRACHOMATIS DETECTED BY COMMUNICATIONS SENIOR ASSOCIATE-MEDIATE D NUCLEIC ACID AMPLIFICATION. NCTA Final comment 03/21/2017 15:22 APTIMA COMBO2 (AC2) UNISEX SWAB COLLECTION KIT IS FDA APPROVED FOR FEMALE ENDOCERVICAL AND MALE URETHRAL SPECIMENS. AC2 VAGINAL SWAB COLLECTION KIT IS FDA APPROVED FOR FEMALE VAGINAL SPECIMENS. Final Performing Location Performed at [facility] [address] [facility] [address]
--- OUTSIDE RECORDS SUMMARY | 2023-01-03 01:49 | External Medical Summary | Summary of Care ---
Author Name Unknown Organization [place] [address] Phone Care Team Providers Care Audio Visual Aide Name Role Phone Ilya Orozco III, MD Primary Care Provider [phone] Reason for Visit * Reason Comments FOLLOW UP Encounter Details Date Type Department Care Team Description 10/23/2017 Office Visit Family Practice [facility] [address] [place] [address] Tra Gimenez, [address] [place] [address] [phone] Acute non-recurrent maxillary sinusitis* Allergies No Known Allergiesas of this encounter [...] for Wheezing. 1 Inhaler 1 10/23/2017 Active amoxicillin-clavul anate (AUGMENTIN) 875-125 MG per TabletIndications: Acute non-recurrent maxillary sinusitis Take 1 Tab by mouth 2 times a day for 10 days. 20 Tab 0 10/23/2017 8 Active PredniSONE (DELTASONE) 10 MG TabletIndications: Seasonal allergic rhinitis, unspecified trigger Take 5 tabs for 2 days, 4 tabs for 2 days, 3 tabs for 2 days, 2 tabs for 2 days 1 tab for 2 days 30 Tab 0 10/10/2017 8 Discontinued as of this encounter Active [...] Vital Sign Reading Time Taken Blood Pressure 104/60 10/23/2017 8:55 AM EDT Pulse 82 10/23/2017 8:55 AM EDT Temperature 37.1 C (98.8 F) 10/23/2017 8 :55 AM EDT Respiratory Rate 16 10/23/2017 8:55 AM EDT Oxygen Saturation 98% 10/23/2017 8:5 5 AM EDT Inhaled Oxygen Concentration - - Weight 56.9 kg (125 lb 6.4 oz) 10/24/19 18 8:55 AM EDT Height - - Body Mass Index 23.69 10/23/2017 8:55 AM EDT in this encounter Progress Notes * Tra Gimenez, - 10/23/2017 9:20 AM EDT Formatting of this note may be different from the original. Subjective: Aria Melgar is a 27 year old female. Chief Complaint Patient presents with FOLLOW UP HPI: Started with a dry deep cough. Prednisone helped while she was on it. It never completely knocked it out but was still coughing. The deep heavy cough is not back. Now more of a loose cough. She is bringing up some mucous and getting green mucous from her nose. Some sinus pressure and ear pain since yesterday at least. No F or C. Some sore throat for the past cuple of days. Some SOB and wheezing - a little at least. She did prednisone, claritin D. She is not on flonase yet. Her cough started down low. Now more of a tickle up higher. She feels like she is gettign worse. Feels like it is becoming a sinus infection. She has not used an inhaler in a while. PMHx, meds, and allergies reviewed Patient Active Problem List Diagnosis Code Allergic rhinitis J30.9 Idiopathic scoliosis M41.20 Keratosis pilaris L85.8 Current Outpatient Prescriptions Medication Sig Dispense Refill FLUoxetine (PROZAC) 20 [...] allergies indicates: No Known Allergies OBJECTIVE: BP 104/60 | Pulse 82 | Temp (Src) 98.8 (Tympanic) | Resp 16 | Wt 125 lbs 6.4 oz (56.881kg) | BMI 23.69 kg/m | BSA 1.56 m | SaO2 98% Estimated body mass index is 23.69 kg/(m^2) as calculated from the following: Height as of 11/07/16: 1.549 m (5' 1"). Weight as of this encounter: 56.9 kg (125 lb 6.4 oz). BP Readings from Last 3 Encounters: 10/23/17 104/60 10/10/17 108/68 05/23/17 98/68 Wt Readings from Last 3 Encounters: 10/23/17 56.9 kg (125 lb 6.4 oz) 10/10/17 56.2 kg (124 lb) 05/23/17 57.6 kg (127 lb) ROS: Negative except for above PHYSICAL EXAM: General: alert, healthy, no distress, well nourished and well developed Head: Normocephalic, and pain with palpation of maxillary sinuses Ears: External ears normal, Canals clear, TM's Normal Nose: no mucosal erythema, no mucosal edema, no purulent discharge Oropharynx: no exudate, no erythema, lips, buccal mucosa, and tongue normal and mucous membranes are moist Lymph: no palpable lymphadenopathy Heart: regular rate & rhythm, no murmurs and no gallops Lungs: clear to auscultation ASSESSMENT/Plan J01.00 Acute non-recurrent maxillary sinusitis (primary encounter diagnosis) Plan: Fluticasone propionate 50 mcg/act na susp Sig:Administer 2 sprays into each nostril 2 times a day. Albuterol sulfate hfa 108 (90 base) mcg/act in aers Sig:Inhale 2 puffs by mouth every 4 hours as needed for wheezing. Amoxicillin-pot clavulanate 875-125 mg po tabs Sig:Take 1 tab by mouth 2 times a day for 10 days. Almost two different sets of symptoms. The initial being more allergic and now more infectious but still likely viral. Start flonase and inhaler for now but begin abx Saturday if no better. The above was discussed and understanding was expressed. Tra Gimenez, in this encounter Nursing Notes * Beata Cantu, YARDAGE CALLER - 10/23/2017 8:55 AM EDT Pt present today for a follow up from her cough and sinus pressure from a week ago. She seems to begetting worse. in this encounter Plan of Treatment Health [...] this encounter Visit Diagnoses Diagnosis Acute non-recurrent maxillar y sinusitis - Primary in this encounter
--- OUTSIDE RECORDS SUMMARY | 2023-01-03 01:49 | External Medical Summary | Summary of Care ---
Author Name Unknown Organization [place] [address] Phone Care Team Providers Care Bottle Caser Name Role Phone Clare Orozco III, MD Primary Care Provider [phone] Reason for Visit * Reason Comments eRx-Medication Refill Encounter Details Date Type Department Care Team Description 2017 Refill Family Practice [facility] [address] [place] [address] Clare Orozco III, MD [address] [place] [id number] [phone] Allergies No Known Allergiesas of this encounter [...] TIME DAILY 30 Cap 11 09/10/2017 Active FLUoxetine (PROZAC) 20 MG Capsule TAKE ONE CAPSULE BY MOUTH ONE TIME DAILY 30 Cap 11 09/03/2016 8 Discontinued as of this encounter Active [...] Miscellaneous Notes * Telephone Encounter - Clare Orozco III, MD - 09/10/2017 11:01 AM EDT Signed Prescriptions: Disp Refills FLUoxetine (PROZAC) 20 MG Capsule 30 Cap 11 Sig: TAKE ONE CAPSULE BY MOUTH ONE TIME DAILY Authorizing Provider: CLARE OROZCO III * Telephone Encounter - Ursula Salas LPN - 09/10/2017 10:36 AM EDT Pending Prescriptions: Disp Refills FLUoxetine (PROZAC) 20 MG Capsule [Pharma*30 Cap 11 Sig: TAKE ONE CAPSULE BY MOUTH ONE TIME DAILY * Telephone Encounter - Ursula Salas LPN - 09/10/2017 10:36 AM EDT Formatting of this note may be different from the original. Pending Prescriptions: Disp Refills FLUoxetine (PROZAC) 20 MG Capsule [Pharma*30 Cap 11 Sig: TAKE ONE CAPSULE BY MOUTH ONE TIME DAILY Last Office Visit: 05/23/2017 Next Office Visit: No Future Appointments Last date the medication was ordered: 09/03/16 Patient Active Problem List Diagnosis Code Allergic [...] Value Status 05/23/11 1:11P 05/23/11 4.7 FINAL in this encounter Plan of Treatment Health Maintenance Due Date Last Done Comments GARDASIL-HPV IMMUNIZATION SERIES (3 of 3 - Female 3 Dose Series) 07/13/2015 03/14/2015 (Not indicated), 03/09/2014 (Refused) PAP SMEAR-EVERY 3 YRS,AGES 21-65 03/20/2020 03/20/2017, [...]
--- OUTSIDE RECORDS SUMMARY | 2023-01-03 01:49 | External Medical Summary ---
Author Name Unknown Address Unknown Organization R:IT USE ONLY!!! Laboratory Report Ordering Provider Test Date Status 12/16/2017 15:30:00 Final Observation Date Value Abnormality Reference Status Source 12/16/2017 17:07 URINE Final Neisseria gonorrhoeae rRNA [Presence] in Unspecified specimen by Probe and target amplification method 12/17/2017 14:28 NO NEISSERIA GONORRHOEAE DETECTED BY PROCUREMENT COST COORDINATOR-MEDIATED NUCLEIC ACID AMPLIFICATION. NGCTMA Final comment 12/17/2017 14:28 APTIMA COMBO2 (AC2) UNISEX SWAB COLLECTION KIT IS FDA APPROVED FOR FEMALE ENDOCERVICAL AND MALE URETHRAL SPECIMENS. AC2 VAGINAL SWAB COLLECTION KIT IS FDA APPROVED FOR FEMALE VAGINAL SPECIMENS. Final comment 12/17/2017 14:28 The validation of this specimen type for this assay was developed and performance characteristics determined by [employer]. It has not been cleared or approved by the U.S. Food and Drug Administration (FDA). The FDA has determined that such clearance or approval is not necessary. Final Performing Location IT USE ONLY!!!
--- OUTSIDE RECORDS SUMMARY | 2023-01-03 01:49 | External Medical Summary ---
Author Name Unknown Address Unknown Organization [facility]IC[facility]:Performed at [place] [address] [address] [facility] [place] [place] [address] Laboratory Report Ordering Provider Test Date Status 02/14/2017 14:12:00 Final Observation Date Value Abnormality Reference Status Source 02/14/2017 15:18 CLEAN CATCH URINE Final Bacteria identified in Unspecified specimen by Culture 02/16/2017 11:44 10,000 TO 100,000 COLONIES/ML ESCHERICHIA COLI Abnormal Final Bacteria identified in Unspecified specimen by Culture 02/16/2017 11:44 LESS THAN 10,000 COLONIES/ML MIXED NORMAL LAKHWINDER Final REPORT STATUS 02/16/2017 17:50 02/16/2017 FINAL Final Bacteria identified in Isolate by Culture 02/16/2017 11:44 ESCHERICHIA COLI Abnormal Final Performing Location Performed at [address] [address]
--- OUTSIDE RECORDS SUMMARY | 2023-01-03 01:49 | External Medical Summary | Summary of Care ---
Author Name Unknown Organization [place] [address] Phone Care Team Providers Care Floor Cleaner Name Role Phone Ilya Orozco III, MD Primary Care Provider [phone] Reason for Visit * Reason Comments EMERGENCY DEPARTMENT FOLLOW-UP Encounter Details Date Type Department Care Team Description 11/13/2017 Telephone Ancillary [facility] [place] [address] [place] [address] Aysha Menjivar, RN EMERGENCY DEPARTMENT FOLLOW-UP Allergies No Known Allergiesas of this encounter [...] 09/10/2017 Active fluticasone (FLONASE) 50 MCG/ACT nasal sprayIndications:Acu te non-recurrent maxillary sinusitis Administer 2 Sprays into each nostril 2 times a day. 1 Inhaler 5 10/23/2017 Active albuterol (PROAIR HFA) 108 (90 BASE) MCG/ACT inhalerIndications:A cute non-recurrent maxillary sinusitis Inhale 2 Puffs by mouth every 4 hours as needed for Wheezing. 1 Inhaler 1 10/23/2017 Active PredniSONE (DELTASONE) 10 MG Tablet Take 5 tabs for 3 days, 4 tabs for 3 days, 3 tabs for 3 days, 2 tabs for 3 days 1 tab for 3 days 45 Tab 0 10/29/2017 Active as of this encounter Active Problems [...] encounter Miscellaneous Notes * Telephone Encounter - Aysha Menjivar RN - 11/13/2017 2:08 PM EDT Phone Follow Up: The patient was contacted in regards to their recent appointment with Provider ED, 2 day(s) ago, regarding otitis media. Left message informing pt of clinic phone number, [facility], and [facility]. Encouraged to call with any questions or concerns. Aysha Menjivar RN in this encounter Plan of Treatment Health [...]
--- OUTSIDE RECORDS SUMMARY | 2023-01-03 01:49 | External Medical Summary ---
Author Name Unknown Address Unknown Organization : Laboratory Report Ordering Provider Test Date Status TAMEKACONSTANCE ARROYOLAND 11/07/2016 10:49:00 Final Observation Date Value Abnormality Reference Status Source 11/07/2016 10:50 CLEAN CATCH URINE Final Bacteria identified in Unspecified specimen by Culture 11/08/2016 08:54 10,000 TO 100,000 COLONIES/ML ESCHERICHIA COLI Abnormal Final REPORT STATUS 11/09/2016 15:24 11/09/2016 FINAL Final Bacteria identified in Isolate by Culture 11/08/2016 23:44 ESCHERICHIA COLI Abnormal Final Performing Location
--- OUTSIDE RECORDS SUMMARY | 2023-01-03 01:49 | External Medical Summary | Summary of Care ---
Author Name Unknown Organization [place] [address] Phone Care Team Providers Care Osteopathic Medicine Teacher Name Role Phone Ilya Orozco III, MD Primary Care Provider [phone] Reason for Visit * Reason Comments Acute No menses since 03/07 12/20 Encounter Details Date Type Department Care Team Description 05/23/2017 Office Visit Family Practice [facility] [address] [place] [address] Rekha Raman PA-C [address] [place] [address] [phone] Amenorrhea*;Dysmenorrh ea Allergies No Known Allergiesas of this encounter [...] 97.5 MG TABS Take by mouth. Active ketoconazole 2 % shampoo Apply topically to affected area every 3 days. Apply to rash on the back and abdomen daily x 1 week, then weekly 120 mL 1 03/28/2015 05/23/2017 Discontinued as of this encounter Active Problems [...] Vital Sign Reading Time Taken Blood Pressure 98/68 05/23/2017 4:01 PM EST Pulse 72 05/23/2017 4:01 PM EST Temperature 37 C (98.6 F) 05/23/2017 4:0 1 PM EST Respiratory Rate 16 05/23/2017 4:01 PM EST Oxygen Saturation - - Inhaled Oxygen Concentration - - Weight 57.6 kg (127 lb) 05/23/2017 4:01 PM EST Height - - Body Mass Index 24 05/23/2017 4:01 PM EST in this encounter Progress Notes * Rekha Raman PA-C - 05/23/2017 6:23 PM EST Formatting of this note may be different from the original. SUBJECTIVE: Aria Melgar is a 26 year old female. Chief Complaint Patient presents with Acute No menses since 04/02/17 HPI: Patient is a 26-year-old female who presents today with the lack of menstrual cycle since April 02. Was on oral contraceptives and stops them back in September of last year. Of did not have a period the 1st month or 2 after stopping the. Then she had 1 in December, 1 in January, and February 03. For the last 52 days she has had no kind of bleeding. She has been home test which have beennegative. She desires . Patient Active Problem List Diagnosis Code Allergic [...] allergies indicates: No Known Allergies OBJECTIVE: BP 98/68 | Pulse 72 | Temp (Src) 98.6 (Tympanic) | Resp 16 | Wt 127 lbs (57.607kg) | BMI 24 kg/m | BSA 1.57 m | LMP 04/02/2017 PHYSICAL EXAM: General: alert, healthy, no distress, well nourished, well developed, comfortable and cooperative Neck: supple, no adenopathy, no bruits, thyroid normal size, non-tender, without nodularity Heart: regular rate & rhythm, no murmurs and no gallops Lungs: chest symmetric with normal AP diameter, no chest deformities noted, no chest wall tenderness, lungs clear to auscultation Abdomen: abdomen soft, non-tender, normal bowel sounds, no masses or organomegaly, no rebound or guarding, no CVA tenderness and no bladder distention identified ASSESSMENT: N91.2 Amenorrhea (primary encounter diagnosis) N94.6 Dysmenorrhea PLAN: N91.2 Amenorrhea (primary encounter diagnosis) Plan: scr urine Cbc Tsh Beta-hcg Cbc Tsh Beta-hcg N94.6 Dysmenorrhea Plan: scr urine Will consider a provera challenge if normal labs. Follow up as needed. Rekha Raman PA-C in this encounter Nursing Notes * Elham Miranda LPN - 05/23/2017 4:03 PM EST Patient presents today for assessment. Reports has not had menses since 04/02/17 reports at home preg tests negative. Not using any form of control. Hm and med reviewed in this encounter Plan of Treatment Pending Results Name Priority Associated Diagnoses Date/Ti me CBC Routine Amenorrhea 05/23/2017 4:41 PM EST TSH Routine Amenorrhea 05/23/2017 4:41 PM EST BETA-HCG Routine Amenorrhea 05/23/2017 4:41 PM EST Scheduled Tests Name Priority Associated Diagnoses Order S chedule CBC Routine Amenorrhea Expected: 05/23/2017 (Approximate), Expi res: 05/23/2018 TSH Routine Amenorrhea Expected: 05/23/2017 (Approximate), Expi res: 05/23/2018 BETA-HCG Routine Amenorrhea Expected: 05/23/2017, Expires: 9 Health Maintenance Due Date Last Done Comments GARDASIL-HPV IMMUNIZATION SERIES (3 of 3 - Female 3 Dose Series) 07/13/2015 03/14/2015 (Not indicated), 03/09/2014 (Refused) PAP SMEAR-EVERY 3 YRS,AGES 21-65 03/20/2020 03/20/2017, 03/19/2017, 03/09/2014, Additional history exists TETANUS EVERY 10 YRS-TDAP (BOOSTRIX/ADACEL) SUGGESTED IF NOT RECEIVED IN PAST 11/20/2022 11/20/2012, 04/02/2003, 10/09/1996 Influenza Vaccine (FLU shot) Addressed 03/19/2017 (Done elsewhere), 03/11/2017, 03/14/2015, Additional history exists Overridden with the intention of not completing the topic as of this encounter Implants Not on fileas of this encounter Results * SCR URINE (05/23/2017) Component Value Ref Range HCG BETA,URINE NEG NEG - NEG PROCED CONTROL VALID? LOT NUMBER EXPIRATION DATE Specimen Performing Laborator y Urine [facility] [address] [place] [address] in this encounter Visit Diagnoses Diagnosis Amenorrhea - Primary Absence of menstruation Dysmenorrhea in this encounter Insurance Payer Benefit Plan / Group Subscriber ID Type Phone Address [facility] [id number] as of this encounter"
--- OUTSIDE RECORDS SUMMARY | 2023-01-03 01:49 | External Medical Summary | Summary of Care ---
Author Name Unknown Organization [facility] [address] Phone Care Team Providers Care Database Consultant Name Role Phone Ilya Orozco III, MD Primary Care Provider [phone] Reason for Visit * Reason Comments ADVICE Encounter Details Date Type Department Care Team Description 05/22/2017 Telephone [facility] [address] [place] [address] Rekha Raman PA-C [address] [place] [address] [phone] ADVICE Allergies No Known Allergiesas of this [...] Telephone Encounter - Aysha Menjivar RN - 05/22/2017 12:36 PM EST Per August, pt should be scheduled for a visit. Scheduled for 05/23/17 * Telephone Encounter - Elham Miranda LPN - 05/22/2017 12:30 PM EST Please see message below and advise. * Telephone Encounter - Yen Degroot OSA - 05/22/2017 12:24 PM EST Pt stats she is on day 51 of her cycle. She has not had her period since April 02. Patient hastaken 3 home tests all of which were negative. Her most recent at home test was this pastSaturday the . She has no symptoms. Is asking if she needs to be seen, or come in for blood work. Please advise. in this encounter Plan of Treatment Upcoming Encounters Date Type Specialty Care Team Description 05/23/2017 Office Visit Family Practice [facility] Rekha BRANDON [facility] [address] [facility] [place] [address] [phone] Health Maintenance Due Date Last Done Comments [...] Implants Not on fileas of this encounter Insurance Payer Benefit Plan / Group Subscriber ID Type Phone Address [employer] TUNG [place]ASSAN [id number] as of this encounter
--- OUTSIDE RECORDS SUMMARY | 2023-01-03 01:49 | External Medical Summary ---
Author Name Unknown Address [address] [facility] [place] [address] Phone Organization K01:[facility] [address] [place] [address] Laboratory Report Ordering Provider Test Date Status 05/23/2017 16:41:00 Final Observation Date Value Abnormality Reference Status WBC, Total 05/23/2017 21:41 7.41 4.00-10.80 F inal RBC 05/23/2017 21:41 4.55 3.85-5.15 Fin al Hemoglobin 05/23/2017 21:41 13.4 12.0-15.3 Fi nal HCT 05/23/2017 21:41 39.5 36.0-45.2 Fin al MCV 05/23/2017 21:41 86.8 81.5-97.5 Fin al MCH 05/23/2017 21:41 29.5 27.0-34.0 Fin al MCHC 05/23/2017 21:41 33.9 32.0-36.0 Fin al RDW 05/23/2017 21:41 12.7 11.5-15.5 Fin al Platelets 05/23/2017 21:41 274 140-400 Fin al MPV 05/23/2017 21:41 10.7 6.6-11.1 Fin al Performing Location [facility] [address] [facility] [place] [address]
--- OUTSIDE RECORDS SUMMARY | 2023-01-03 01:49 | External Medical Summary | Summary of Care ---
Author Name Unknown Organization [place] [address] Phone Care Team Providers Care Telephone Station Repairer Name Role Phone Ilya Orozco III, MD Primary Care Provider [phone] Encounter Details Date Type Department Care Team Description 11/11/2017 Scan Encounter Unspecified Department <No scans attached> Allergies No Known Allergiesas of this encounter [...] Not on file as of this encounter Plan of Treatment [...]
--- OUTSIDE RECORDS SUMMARY | 2023-01-03 01:49 | External Medical Summary ---
Author Name Unknown Address [facility] [place] [address] Phone Organization K01:[place] [address] [place] [id number] Laboratory Report Ordering Provider Test Date Status 05/23/2017 16:41:00 Final Observation Date Value Abnormality Reference Status TSH 05/23/2017 21:56 1.85 0.27-4.2 Fin al Performing Location [address] [address]
--- OUTSIDE RECORDS SUMMARY | 2023-01-03 01:49 | External Medical Summary | Summary of Care ---
Author Name Unknown Organization [place] [address] Phone Care Team Providers Care Parimutuel Ticket Cashier Name Role Phone Ilya Orozco III, MD Primary Care Provider [phone] Reason for Visit * Reason Comments COUGH cough x 2 wks, somet rosaura dry sometimes productive, allergies? claritan D not helping, throat started hurting today Encounter Details Date Type Department Care Team Description 10/10/2017 Office Visit Acute Care, [facility] [address] [facility] [place] [address] Kristine Villarreal PA-C [address] [facility] [place] [address] [phone] Seasonal allergic rhinitis, unspecified trigger* Allergies No Known Allergiesas of this encounter [...] Vital Sign Reading Time Taken Blood Pressure 108/68 10/10/2017 1:28 PM EDT Pulse 64 10/10/2017 1:28 PM EDT Temperature 37 C (98.6 F) 10/10/2017 1:2 8 PM EDT Respiratory Rate 16 10/10/2017 1:28 PM EDT Oxygen Saturation - - Inhaled Oxygen Concentration - - Weight 56.2 kg (124 lb) 10/10/2017 1:28 PM EDT Height - - Body Mass Index 23.43 10/10/2017 1:28 PM EDT in this encounter Progress Notes * Kristine Villarreal PA-C - 10/10/2017 1:37 PM EDT Formatting of this note may be different from the original. Subjective Aria Melgar is a 27 year old female. Chief Complaint Patient presents with COUGH cough x 2 wks, sometime dry sometimes productive, allergies? claritan D not helping, throat startedhurting today Cough x 2 weeks. HPI: The patient has had post nasal drip, cough for 2 weeks. She is taking claritin D. Throat started to hurt today. No fevers, sinus pain, purulent nasal drainage. No cp, sob. PMH: Patient Active Problem List Diagnosis Code Allergic [...] twice daily Saturday thru 45 g 0 Past Medical History: Diagnosis Date Allergic rhinitis Status asthmaticus September 1994 Hospitalized at [facility] Varicella without complication May 1994 Past Surgical History: Procedure Laterality Date DENTAL SURGERY PROCEDURE NEC Dental Surgery Procedure NONE Review of patient's allergies indicates: No Known Allergies Family History Problem Relation Age of Onset Cancer Mother precancerous cervical cancer Musculo-skeletal Disorder Mother back No Past Hx Father Heart Disorder Grandfather (Paternal) Asthma cousin [OTHER] Cancer Grandmother (Paternal) lung Cancer Aunt (Unspecified) paternal aunt Family Status Relation Status Mother Alive seamstress Father Alive Other Alive construction Grandfather (Paternal) Other Grandmother (Paternal) Aunt (Unspecified) Social History Social History Marital status: Single [...] exposure. Entered By: Kris Mccormick MD 07/31/2004 Review of Systems Constitutional: Negative for chills and fever. HENT: Positive for postnasal drip and sore throat. Negative for congestion, rhinorrhea, sinus pain and sinus pressure. Eyes: Negative for pain, discharge and itching. Respiratory: Positive for cough. Gastrointestinal: Negative for abdominal pain, diarrhea, nausea and vomiting. Objective BP 108/68 | Pulse 64 | Temp (Src) 98.6 (Tympanic) | Resp 16 | Wt 124 lbs (56.246kg) | BMI 23.43 kg/m | BSA 1.56 m Physical Exam Constitutional: She appears well-developed and well-nourished. No distress. HENT: Head: Normocephalic and atraumatic. Right Ear: External ear normal. Left Ear: External ear normal. Mouth/Throat: Oropharynx is clear and moist. No oropharyngeal exudate. Eyes: Conjunctivae are normal. Pupils are equal, round, and reactive to light. Right eye exhibits no discharge. Left eye exhibits no discharge. Cardiovascular: Normal rate, regular rhythm and normal heart sounds. No murmur heard. Pulmonary/Chest: Effort normal and breath sounds normal. She has no wheezes. She has no rales. Skin: She is not diaphoretic. Nursing note and vitals reviewed. ASSESSMENT/PLAN: J30.2 Seasonal allergic rhinitis, unspecified trigger (primary encounter diagnosis) Plan: Medications: 1. Prednisone 10 mg po tabs Sig:Take 5 tabs for 2 days, 4 tabs for 2 days, 3 tabs for 2 days, 2 tabs for 2 days 1 tab for 2 days Call or return to clinic prn if these symtoms worsen or fail to improve as anticipated. Kristine Villarreal PA-C in this encounter Nursing Notes * Nicole Tamez RN - 10/10/2017 1:28 PM EDT Formatting of this note may be different from the original. Patient identified by full name and date of . Chief Complaint Patient presents with COUGH cough x 2 wks, sometime dry sometimes productive, allergies? claritan D not helping, throat startedhurting today in this encounter Plan of Treatment Health [...] fileas of this encounter Visit Diagnoses Diagnosis Seasonal allergic rhinitis, unspecified trigger - Primary in this encounter"
--- OUTSIDE RECORDS SUMMARY | 2023-01-03 01:49 | External Medical Summary | Summary of Care ---
Author Name Unknown Organization [place] [address] Phone Care Team Providers Care Port Steward Name Role Phone Ilya Orozco III, MD Primary Care Provider [phone] Reason for Visit * Reason Comments Acute sinus issus Encounter Details Date Type Department Care Team Description 10/29/2017 Office Visit Family Practice [facility] [address] [place] [address] Rekha Raman PA-C 200 [place] [address] [phone] Acute maxillary sinusitis, recurrence not specified*;Bronchitis, complicated Allergies No Known Allergiesas of this encounter [...] 3 days 45 Tab 0 10/29/2017 Active cefdinir (OMNICEF) 300 MG Capsule Take 1 Cap by mouth every 12 hours for 10 days. For 10 days. 20 Cap 0 10/29/2017 8 Active amoxicillin-clavul anate (AUGMENTIN) 875-125 MG per TabletIndications: Acute non-recurrent maxillary sinusitis Take 1 Tab by mouth 2 times a day for 10 days. 20 Tab 0 10/23/2017 8 Discontinued as of this encounter Active [...] Sign Reading Time Taken Blood Pressure 100/68 10/29/2017 11:49 AM EDT Pulse 80 10/29/2017 11:49 AM EDT Temperature 36.8 C (98.2 F) 10/29/2017 1 1:49 AM EDT Respiratory Rate 16 10/29/2017 11:4 9 AM EDT Oxygen Saturation - - Inhaled Oxygen Concentration - - Weight 57.2 kg (126 lb) 10/29/2017 11:4 9 AM EDT Height - - Body Mass Index 23.81 10/29/2017 11:49 AM EDT in this encounter Progress Notes * Rekha Raman PA-C - 10/29/2017 5:25 PM EDT Formatting of this note may be different from the original. SUBJECTIVE: Aria Melgar is a 27 year old female. Chief Complaint Patient presents with Acute sinus issus HPI: Patient is a 27-year-old female who presents today with ongoing respiratory symptoms of 5 weeks duration. Has been seen in the office on 2 previous occasions. Most recently on the was placed on Augmentin. She continues to have ear discomfort, facial pressure, nasal congestion, postnasal drip, sore throat, productive cough, chest heaviness, and occasional wheeze. Patient Active Problem List Diagnosis Code Allergic rhinitis J30.9 Idiopathic scoliosis M41.20 Keratosis pilaris L85.8 Current Outpatient Prescriptions Medication Sig Dispense Refill cefdinir (OMNICEF) 300 MG Capsule Take 1 Cap by mouth every 12 hours for 10 days. For 10 days. 20 Cap 0 PredniSONE (DELTASONE) 10 MG Tablet [...] allergies indicates: No Known Allergies OBJECTIVE: BP 100/68 | Pulse 80 | Temp (Src) 98.2 (Tympanic) | Resp 16 | Wt 126 lbs (57.153kg) | BMI 23.81 kg/m | BSA 1.57 m | LMP 10/22/2017 | ? No PHYSICAL EXAM: General: alert, healthy, no distress, well nourished, well developed and cooperative Ears: External ears normal, Canals clear, R TM dull, L TM dull Nose: no septal hematoma, purulent rhinorrhea, mucosal edema, mucosal erythema Oropharynx: no exudate, lips, buccal mucosa, and tongue normal, mucous membranes are moist and milderythema Neck: supple, no adenopathy, no bruits, thyroid normal size, non-tender, without nodularity Heart: regular rate & rhythm, no murmurs and no gallops Lungs: chest symmetric with normal AP diameter, no chest deformities noted, no chest wall tenderness, coarse sounds heard, prolonged expiratory phase, expiratory wheezes bilaterally ASSESSMENT: J01.00 Acute maxillary sinusitis, recurrence not specified (primary encounter diagnosis) J40 Bronchitis, complicated PLAN: J01.00 Acute maxillary sinusitis, recurrence not specified (primary encounter diagnosis) J40 Bronchitis, complicated Orders Placed This Encounter Medications PredniSONE (DELTASONE) 10 MG Tablet Sig: Take 5 tabs for 3 days, 4 tabs for 3 days, 3 tabs for 3 days, 2 tabs for 3 days 1 tab for 3 days Dispense: 45 Tab Refill: 0 cefdinir (OMNICEF) 300 MG Capsule Sig: Take 1 Cap by mouth every 12 hours for 10 days. For 10 days. Dispense: 20 Cap Refill: 0 Follow up as needed. Rekha Raman PA-C in this encounter Nursing Notes * Elham Miranda LPN - 10/29/2017 11:53 AM EDT Patient presents today for sinus issues. Patient reports has been ongoing for about 5 weeks. Patient reports was on prednisone seen by Phil(10-10-17). Then seen on by Dr. Gimenez. Patient reports has has no improvement patient reports symptoms have worsened. Patient reports cough productive green in color and pain in ribs from coughing, pressure in face, and tiredness. Hm and med reviewed in this encounter Plan of Treatment Health [...] encounter Visit Diagnoses Diagnosis Acute maxillary sinusitis, r ecurrence not specified - Primary Bronchitis, complicated Bronchitis, not specified as acute or chronic in this encounter"
--- OUTSIDE RECORDS SUMMARY | 2023-01-03 01:49 | External Medical Summary | Summary of Care ---
Author Name Unknown Organization [place] [address] Phone Care Team Providers Care Camera Systems Engineer Name Role Phone Ilya Orozco III, MD Primary Care Provider [phone] Reason for Visit * Reason Comments PAP Encounter Details Date Type Department Care Team Description 03/19/2017 Office Visit Family Practice [facility] [address] [place] [address] Rekha Raman PA-C [address] [place] [address] [phone] Well adult exam*;Encounter for gynecological examination without [...] rhinitis Status asthmaticus September 1994 Hospitalized at [facility] Varicella without complication May 1994 Past [...] / Group Subscriber ID Type Phone Address [employer] TUNG HASSAN [id number] 1 as of this encounter"
--- OUTSIDE RECORDS SUMMARY | 2023-01-03 01:49 | External Medical Summary | Summary of Care ---
Author Name Unknown Organization [facility] [place] [address] Phone Care Team Providers Care Metal Patternmaker Name Role Phone Ilya Orozco III, MD Primary Care Provider [phone] Reason for Referral * Evaluate & Treat - Unlimited Visits (Within 10 days (routine)) Status Reason Specialty Diagnoses / Procedures Referred By Contact Referred To Contact Pending Review Specialty Services Required Otolaryngology Diagnoses Left non-suppurative otitis media Kristine Villarreal PA-C [address] [place] [phone] Reason for Visit * Reason Comments [facility] 11/11 with L e ar infection, now R ear is starting to clog up, has had chead quiana x 8 wks, been on antibx and prednisone Encounter Details Date Type Department Care Team Description 11/14/2017 Office Visit Acute Care, [facility] [address] [address] Kristine Villarreal PA-C [address] [place] [phone] Left non-suppurative otitis media*;Asthma with severity to be determined Allergies No Known Allergiesas of this encounter [...] for Wheezing. 1 Inhaler 1 10/23/2017 Active amoxicillin (AMOXIL) 500 MG CapsuleIndications :Left non-suppurative otitis media 11/12/2017 Active ofloxacin (FLOXIN) 0.3 % otic solutionIndication s:Left non-suppurative otitis media Administer 10 Drops into ears 2 times a day for 10 days. In affected ear for 10 days. 1 Bottle 0 11/14/2017 8 Active PredniSONE (DELTASONE) 10 MG Tablet Take 5 tabs for 3 days, 4 tabs for 3 days, 3 tabs for 3 days, 2 tabs for 3 days 1 tab for 3 days 45 Tab 0 10/29/2017 8 Discontinued as of this encounter Active [...] Vital Sign Reading Time Taken Blood Pressure 112/64 11/14/2017 1:23 PM EDT Pulse 88 11/14/2017 1:23 PM EDT Temperature 36.8 C (98.2 F) 11/14/2017 1 :23 PM EDT Respiratory Rate - - Oxygen Saturation - - Inhaled Oxygen Concentration - - Weight 57.2 kg (126 lb) 11/14/2017 1:23 PM EDT Height 154.9 cm (5' 1") 11/14/2017 1:23 PM EDT Body Mass Index 23.81 11/14/2017 1:23 PM EDT in this encounter Progress Notes * Kristine Villarreal PA-C - 11/14/2017 1:37 PM EDT Formatting of this note may be different from the original. Subjective Aria Melgar is a 27 year old female. Chief Complaint Patient presents with [facility] 11/11 with L ear infection, now R ear is starting to clog up, has had chead quiana x 8 wks, been on antibx and prednisone Left ear infection Sudafed, antibiotic HPI: The patient has had URI symptoms for nearly 2 months. She was seen 10/10 and given prednisone. She was seen 10/23 and given Flonase, pro air and Augmentin. She was seen again on 10/29 and given prednisone and omnicef. She then developed ear pain and was seen at [facility] on 11/11 and diagnosed with left OM and has been on Amoxicillin and sudafed. She has had bloody drainage from the left ear. She just finished prednisone 2 days ago. The pain has improved in her left ear but it still feels full. She feels that the prednisone was the most beneficial medication over the last 2 months. She is not using her Flonase regularly. No fever, chills, cough, congestion. PMH: Patient Active Problem List Diagnosis Code Allergic rhinitis J30.9 Idiopathic scoliosis M41.20 Keratosis pilaris L85.8 Current Outpatient Prescriptions Medication Sig Dispense Refill amoxicillin (AMOXIL) 500 MG Capsule albuterol (PROAIR HFA) 108 (90 BASE) MCG/ACT [...] rhinitis Status asthmaticus September 1994 Hospitalized at [facility] Varicella without complication May 1994 Past Surgical [...] for chills and fever. HENT: Positive for congestion, ear discharge and ear pain. Negative for sinus pain, sinus pressure and sore throat. Respiratory: Positive for cough. Negative for chest tightness, shortness of breath and wheezing. Gastrointestinal: Negative for abdominal pain, diarrhea, nausea and vomiting. Objective BP 112/64 | Pulse 88 | Temp (Src) 98.2 (Tympanic) | Ht 5' 1" (1.549m) | Wt 126 lbs (57.153kg) | BMI23.81 kg/m | BSA 1.57 m | LMP 10/22/2017 Physical Exam Constitutional: She appears well-developed and well-nourished. No distress. HENT: Head: Normocephalic and atraumatic. Right Ear: External ear and ear canal normal. No mastoid tenderness. Tympanic membrane is not erythematous, not retracted and not bulging. A middle ear effusion is present. No hemotympanum. Left Ear: Ear canal normal. There is drainage. Tympanic membrane is injected, erythematous and retracted. Tympanic membrane is not bulging. Nose: Nose normal. Mouth/Throat: Oropharynx is clear and moist. No oropharyngeal exudate. Eyes: Conjunctivae are normal. Pupils are equal, round, and reactive to light. Right eye exhibits no discharge. Left eye exhibits no discharge. Cardiovascular: Normal rate and regular rhythm. Pulmonary/Chest: Effort normal and breath sounds normal. She has no wheezes. She has no rales. Skin: She is not diaphoretic. Nursing note and vitals reviewed. ASSESSMENT/PLAN: H65.92 Left non-suppurative otitis media (primary encounter diagnosis) Plan: Continue amoxicillin, sudafed and flonase--daily. Will add floxin drops ? Rupture TM; TM is very retracted and erythematous, no obvious perforation today but ER documentation reports bulging and erythematous. Patient reports bloody drainage. Will refer to ENT given persistence of symptoms despite antibiotics, topical antibiotics, sudafed, flonase, prednisone Referral: 1. Otolaryngology referral op Medications: 1. Amoxicillin 500 mg po caps 2. Ofloxacin 0.3 % ot soln Sig:Administer 10 drops into ears 2 times a day for 10 days. in affectedear for 10 days. J45.909 Asthma with severity to be determined No wheezing today Call or return to clinic prn if these symtoms worsen or fail to improve as anticipated. Kristine Villarreal PA-C in this encounter Nursing Notes * Nicole Tamez RN - 11/14/2017 1:25 PM EDT Formatting of this note may be different from the original. The patient has been properly identified by confirmation of name and date of . Chief Complaint Patient presents with [facility] 11/11 with L ear infection, now R ear is starting to clog up, has had chead quiana x 8 wks, been on antibx and prednisone in this encounter Plan of Treatment Scheduled Referrals Name Priority Associated Diagnoses Order S chedule OTOLARYNGOLOGY REFERRAL OP Within 10 day s (routine) Left non-suppurative otitis media Ordered: 11/14/2017 Health Maintenance Due Date Last Done Comments Influenza Vaccine (FLU shot) (#1) 2017 03/19/2017 (Done elsewhere), 03/11/2017, 03/14/2015, Additional history exists PAP SMEAR-EVERY 3 YRS,AGES 21-65 03/20/2020 03/20/2017, 03/19/2017, 03/09/2014, Additional history exists DTaP,Tdap,and Td Vaccines (7 - Td) 11/20/2022 11/20/2012, 04/02/2003, 10/09/1996, Additional history exists as of this encounter Implants Not on fileas of this encounter Visit Diagnoses Diagnosis Left non-suppurative otitis media - Primary Nonsuppurative otitis media, not specified as acute or chronic Asthma with severity to be d etermined in this encounter
--- OUTSIDE RECORDS SUMMARY | 2023-01-03 01:49 | External Medical Summary ---
Author Name Unknown Address Unknown Organization R:IT USE ONLY!!! Laboratory Report Ordering Provider Test Date Status 12/16/2017 15:30:00 Final Observation Date Value Abnormality Reference Status Source 12/16/2017 17:06 URINE Final Chlamydia trachomatis rRNA [Presence] in Unspecified specimen by Probe and target amplification method 12/17/2017 14:28 NO CHLAMYDIA TRACHOMATIS DETECTED BY AMERICAN HISTORY TEACHER-MEDIATED NUCLEIC ACID AMPLIFICATION. NCTA Final comment 12/17/2017 14:28 APTIMA COMBO2 (AC2) UNISEX SWAB COLLECTION KIT IS FDA APPROVED FOR FEMALE ENDOCERVICAL AND MALE URETHRAL SPECIMENS. AC2 VAGINAL SWAB COLLECTION KIT IS FDA APPROVED FOR FEMALE VAGINAL SPECIMENS. Final comment 12/17/2017 14:28 The validation of this specimen type for this assay was developed and performance characteristics determined by [facility]. It has not been cleared or approved by the U.S. Food and Drug Administration (FDA). The FDA has determined that such clearance or approval is not necessary. Final Performing Location IT USE ONLY!!!
--- OUTSIDE RECORDS SUMMARY | 2023-01-03 01:50 | External Medical Summary ---
Author Name Unknown Address [facility] [place] [address] Phone Organization K01:[place] [address] [place] [id number] Laboratory Report Ordering Provider Test Date Status 09/20/2016 07:14:00 Final Observation Date Value Abnormality Reference Status TSH 09/20/2016 14:37 1.06 0.27-4.2 Fin al Performing Location [place] [id number]
--- OUTSIDE RECORDS SUMMARY | 2023-01-03 01:50 | External Medical Summary ---
Author Name Unknown Organization K01:[facility], [address] [id number] Laboratory Report Ordering Provider Test Date Status AUGUST [facility] 07/16/2013 09:10:00-0400 Final Obs # Observation Date Value ABNL Reference Status Pe rforming Location 1 HCG, Beta 07/16/2013 22:53-0400 <0.1 0-1 mIU/mL Final hCG can serve as a screening assay for . However, early may not give a positive hCG test result. In addition, some non- women may have a hCG result slightly higher than the reference limit. Careful interpretation of the hCG with clinical history is required to determine whether the patient may be .
--- OUTSIDE RECORDS SUMMARY | 2023-01-03 01:50 | External Medical Summary ---
Author Name SASKIA DE OLIVEIRA Organization K01:[facility], [address] [facility] [address] Support Name Relationship Address Phone SASKIA DE OLIVEIRA, AUGUST PROV Unknown Unavailable Laboratory Report Ordering Provider Test Date Status AUGUST SASKIA DE OLIVEIRA 12/04/2011 16:58:00-0400 Final Obs # Observation Date Value ABNL Reference Status Pe rforming Location 1 Source 12/04/2011 16:58-0400 THROAT Final 2 RESULT 12/04/2011 23:13-0400 SEE COMMENT NGADP Final NEGATIVE. NO GROUP A STREPTOCOCCUS DETECTED BY DIRECT MOLECULAR PROBE.
--- OUTSIDE RECORDS SUMMARY | 2023-01-03 01:50 | External Medical Summary ---
Author Name Unknown Organization K01:[facility], [address] [id number] Laboratory Report Ordering Provider Test Date Status AUGUST [facility] 03/09/2014 12:00:00-0500 Final Obs # Observation Date Value ABNL Reference Status Pe rforming Location 1 source 03/09/2014 12:33-0500 CERVIX Final 2 Chlamydia, DNA 03/10/2014 14:32-0500 NO CHLAMYDIA TRACHOMATIS DETECTED BY TIME CHECKER-MED IATED NUCLEIC ACID AMPLIFICATION. NCTA Final 3 comment 03/10/2014 14:32-0500 APTIMA COMBO2 (AC2) UNISEX SWAB COLLECTION KIT IS FDA APPROVED FOR FEMALE ENDOCERVICAL AND MALE URETHRAL SPECIMENS. AC2 VAGINAL SWAB COLLECTION KIT IS FDA APPROVED FOR FEMALE VAGINAL SPECIMENS. Final
--- OUTSIDE RECORDS SUMMARY | 2023-01-03 01:50 | External Medical Summary ---
Author Name Unknown Address [address] [place] [address] Phone Organization K09:[facility] [address] [place] [address] Laboratory Report Ordering Provider Test Date Status 09/20/2016 07:14:00 Final Observation Date Value Abnormality Reference Status BUN 09/20/2016 08:30 13 6-20 Fin al Creatinine 09/20/2016 08:30 0.7 0.5-1.0 Fi nal Performing Location [facility] [address] [place] [address]
--- OUTSIDE RECORDS SUMMARY | 2023-01-03 01:50 | External Medical Summary ---
Author Name Unknown Organization K01[facility], [address] [address] Laboratory Report Ordering Provider Test Date Status [facility] 07/16/2013 09:10:00-0400 Final Obs # Observation Date Value ABNL Reference Status Pe rforming Location 1 BUN 07/16/2013 21:47-0400 12 6-20 mg/dL Final 2 Creatinine 07/16/2013 21:47-0400 0.6 0.5-1.0 mg/dL Final GFR should be used to assess renal function. Plasma/Serum creatinine may not be able to properly reflect renal function in some cases.
--- OUTSIDE RECORDS SUMMARY | 2023-01-03 01:50 | External Medical Summary ---
Author Name Unknown Organization K01:[facility], [address] [facility] [address] Laboratory Report Ordering Provider Test Date Status AUGUST RINE PAC 07/16/2013 09:10:00-0400 Final Obs # Observation Date Value ABNL Reference Status Pe rforming Location 1 WBC 07/16/2013 21:20-0400 4.93 4.00-10.80 K/uL Final 2 RBC 07/16/2013 21:20-0400 4.60 3.85-5.15 M/uL Final 3 HGB 07/16/2013 21:20-0400 13.6 12.0-14.5 g/dL Final 4 HCT 07/16/2013 21:20-0400 40.6 36.0-44.5 % Final 5 MCV 07/16/2013 21:20-0400 88.3 81.5-97.5 fL Final 6 MCH 07/16/2013 21:20-0400 29.6 27.0-34.0 pg Final 7 MCHC 07/16/2013 21:20-0400 33.5 32.0-36.0 g/dL Final 8 RDW 07/16/2013 21:20-0400 12.8 11.5-15.5 % Final 9 PLT 07/16/2013 21:20-0400 252 140-400 K/uL Final 10 MPV 07/16/2013 21:20-0400 11.7 H 6.6-11.1 fL Final 11 Segs 07/16/2013 21:20-0400 57 40-75 % Final 12 Lymphocytes 07/16/2013 21:20-0400 32 18-42 % Final 13 Monos 07/16/2013 21:20-0400 7 1-11 % Final 14 Eosinophils 07/16/2013 21:20-0400 3 0-6 % Final 15 Basos 07/16/2013 21:20-0400 1 0-2 % Final 16 Segmented Neutrophils, Abs 07/16/2013 21:20-0400 2.83 1.8-7.7 K/uL Final 17 Lymphs, Abs 07/16/2013 21:20-0400 1.58 1.0-4.8 K/uL Final 18 Monos, Abs 07/16/2013 21:20-0400 0.35 0.0-1.1 K/uL Final 19 Eos, Abs 07/16/2013 21:20-0400 0.13 0.0-0.7 K/uL Final 20 Basos, Abs 07/16/2013 21:20-0400 0.03 0.0-0.2 K/uL Final
--- OUTSIDE RECORDS SUMMARY | 2023-01-03 01:50 | External Medical Summary ---
Author Name Unknown Organization K01:[facility], [address] [id number] Laboratory Report Ordering Provider Test Date Status AUGUST [facility] 11/20/2012 11:00:00-0400 Final Obs # Observation Date Value ABNL Reference Status Pe rforming Location 1 source 11/20/2012 11:20-0400 CERVIX Final 2 Chlamydia, DNA 11/21/2012 14:15-0400 SEE COMMENT NCTTMA Final NO CHLAMYDIA TRACHOMATIS DETECTED BY FINANCIAL ASSISTANCE SPECIALIST-MEDIATED NUCLEIC ACID AMPLIFICATION. APTIMA COMBO2 (AC2) UNISEX SWAB COLLECTION KIT IS FDA APPROVED FOR FEMALE ENDOCERVICAL AND MALE URETHRAL SPECIMENS. AC2 VAGINAL SWAB COLLECTION KIT IS FDA APPROVED FOR FEMALE VAGINAL SPECIMENS.
--- OUTSIDE RECORDS SUMMARY | 2023-01-03 01:50 | External Medical Summary ---
Author Name Unknown Organization K01:[facility], [address] [id number] Laboratory Report Ordering Provider Test Date Status [facility] 07/16/2013 09:10:00-0400 Final Obs # Observation Date Value ABNL Reference Status Pe rforming Location 1 TSH 07/16/2013 21:50-0400 1.21 0.27-4.2 uIU/mL Final
--- OUTSIDE RECORDS SUMMARY | 2023-01-03 01:50 | External Medical Summary ---
Author Name Unknown Address [address] [place] [address] Phone Organization K01:[facility] [address] [facility] [address] Laboratory Report Ordering Provider Test Date Status 09/20/2016 07:14:00 Final Observation Date Value Abnormality Reference Status 25-OH Vitamin D total 09/20/2016 14:37 49 > 19 Final Performing Location [facility] [address] [facility] [address]
--- OUTSIDE RECORDS SUMMARY | 2023-01-03 01:50 | External Medical Summary ---
Author Name Unknown Address [address] [id number] Phone Organization K01:[facility] [address] [id number] Laboratory Report Ordering Provider Test Date Status 09/20/2016 07:14:00 Final Observation Date Value Abnormality Reference Status Monospot (Heterophile Ab) 09/21/2016 10:59 NEGATIVE NEG Final Performing Location [facility] [address] [facility] [address]
--- OUTSIDE RECORDS SUMMARY | 2023-01-03 01:50 | External Medical Summary ---
Author Name Unknown Organization K01:[facility], [address] [facility] [address] Support Name Relationship Address Phone SASKIA YENNIFER,August Unknown Unavailable Laboratory Report Ordering Provider Test Date Status SASKIA DE OLIVEIRA,07/04/2010 10:10-0500 Final Obs # Observation Date Value ABNL Reference Status Pe rforming Location 1 Specimen site 07/04/2010 17:34-0500 Final CLEAN CATCH URINE >100,000 COLONIES/ML STAPHYLOCOCCUS SAPROPHYTICUS THE NCCLS DOES NOT RECOMMEND SUSCEPTIBILITY TESTING ON URINARY ISOLATES OF STAPH SAPROPHYTICUS. INFECTIONS RESPOND TO CONCENTRATIONS ACHIEVED IN URINE WITH ANTIMICROBIAL AGENTS COMMONLY USED TO TREAT ACUTE UNCOMPLICATED UTI'S (E.G. NITROFURANTOIN, TRIMETHOPRIM/SULFAMETHOXAZOLE, OR A FLUOROQUINOLONE). FINAL
--- OUTSIDE RECORDS SUMMARY | 2023-01-03 01:50 | External Medical Summary ---
Author Name Unknown Address [address] [address] Phone Organization K09:[facility] [address] [place] [address] Laboratory Report Ordering Provider Test Date Status 09/20/2016 07:14:00 Final Observation Date Value Abnormality Reference Status WBC, Total 09/20/2016 07:46 4.88 4.00-10.80 F inal RBC 09/20/2016 07:46 4.18 3.85-5.15 Fin al Hemoglobin 09/20/2016 07:46 12.7 12.0-15.3 Fi nal HCT 09/20/2016 07:46 37.8 36.0-45.2 Fin al MCV 09/20/2016 07:46 90.4 81.5-97.5 Fin al MCH 09/20/2016 07:46 30.4 27.0-34.0 Fin al MCHC 09/20/2016 07:46 33.6 32.0-36.0 Fin al RDW 09/20/2016 07:46 12.7 11.5-15.5 Fin al Platelets 09/20/2016 07:46 240 140-400 Fin al MPV 09/20/2016 07:46 10.3 6.6-11.1 Fin al Performing Location [facility] [address] [place] [address]
[2023-01-03] MEDS ORDERED: diphenhydrAMINE 50 MG/ML VIAL IV PRN (02:00)
[2023-01-03] MEDS ORDERED: diphenhydrAMINE Capsule 25 MG CAP PO PRN (02:00)
[2023-01-03] MEDS ORDERED: ONDANSETRON INJ 2 MG/ML 2 ML VIAL IV PRN (02:00)
[2023-01-03] MEDS ORDERED: MEPERIDINE HCL 50 MG/ML CARP IV PRN (02:00)
[2023-01-03] MEDS ORDERED: ZOLPIDEM TARTRATE 5 MG TAB PO PRN (02:00)
[2023-01-03] MEDS ORDERED: PROMETHAZINE HCL 25 MG in SODIUM CHLORIDE 0.9% 50 ML IV PRN (02:00)
[2023-01-03] MEDS ORDERED: KETOROLAC 30 MG/ML VIAL IV PRN (02:00)
[2023-01-03] MEDS: oxyCODONE/ACETAMINOPHEN 5mg/325mg TAB PO PRN ×5 (03:27→20:50)
[2023-01-03] MEDS: IBUPROFEN 600 MG TAB PO PRN ×6 (03:27→20:50)
[2023-01-03] MEDS: SIMETHICONE 80 MG CHEW PO SCH ×5 (07:28→20:50)
[2023-01-03 08:00] LABS: Basophils # (auto) 0.04 K/uL (0.00-0.20); Basophils % (auto) 0.4 %; Eosinophils # (auto) 0.08 K/uL (0.00-0.50); Eosinophils % (auto) 0.8 %; Hematocrit (blood only) 36.6 % (37.0-47.0); Hemoglobin 12.3 g/dl (12.0-16.0); Immature Granulocytes # (auto) 0.07 K/uL (0.01-0.20); Immature Granulocytes % (auto) 0.7 %; Lymphocytes % (auto) 11.7 %; Mean Corpuscular Hemoglobin 30.1 pg (25.0-34.0); Mean Corpuscular Hgb Conc 33.6 g/dL (32.0-36.0); Mean Corpuscular Volume 89.7 fL (80.0-100.0); Mean Platelet Volume 10.9 fL (9.4-12.4); Monocytes # (auto) 0.75 K/uL (0.11-0.59); Neutrophils # (auto) 7.39 K/uL (1.40-6.50); Neutrophils % (auto) 78.4 %; Platelet Count 165 K/uL (130-400); RDW Coefficient of Variation 13.5 % (11.5-14.5); RDW Standard Deviation 44.2 fL (36.4-46.3); Red Blood Count 4.08 M/uL (4.20-5.40); White Blood Count 9.43 K/ul (4.8-10.8)
[2023-01-03] MEDS: DOCUSATE SODIUM 100 MG CAP PO SCH ×2 (08:02→20:50)
[2023-01-03] MEDS: FERROUS SULFATE 325 MG TAB PO SCH (08:02)
[2023-01-03] MEDS: PRENATAL VITAMIN 1 TAB PO SCH (08:02)
--- NOTE | 2023-01-03 08:29 | Obstetrical Progress Note ---
Date of Service January 03, 2023 Assessment & Plan Admission and Anticipated Discharge Date Admission Date: January 02, 2023 Subjective abdomen soft and non tender incision is clean and dry no calf tenderness ambulating well vaginal bleeding scant hgb 12.3 Results & Data Vital Signs (Past 12 Hours) Vital Signs Temp Pulse Resp BP Pulse Ox O2 Del Method 01/03/23 03:45 36.8 C 71 20 137/84 97 Room Air 01/03/23 02:00 18 98 01/03/23 01:00 16 96 01/03/23 00:00 16 95 01/02/23 23:00 18 96 01/02/23 23:07 36.7 C 80 18 120/80 96 Room Air 01/02/23 22:00 18 95 01/02/23 21:00 16 97
[2023-01-03] MEDS: FLUoxetine HCL 20 MG CAP PO SCH (09:46)
--- NOTE | 2023-01-03 13:12 | Newborn Progress Note ---
Date of Service January 03, 2023 Subjective Height & Weight [place] Length (height) cm: 5 ft 1 in Weight: 3.16 kg Weight (Pounds Calculated): 6 lbs and 15.5 ozs Current Weight: 87.997 kg Results (NB) Laboratory Results (24 Hours) Laboratory Results - last 24 hr 01/03/23 06:58 WBC 9.43 RBC 4.08 L Hgb 12.3 Hct 36.6 L MCV 89.7 MCH 30.1 MCHC 33.6 RDW Std Deviation 44.2 RDW Coeff of Terrie 13.5 Plt Count 165 MPV 10.9 Immature Gran % (Auto) 0.7 Neut % (Auto) 78.4 Lymph % (Auto) 11.7 [place] % (Auto) 8.0 Eos % (Auto) 0.8 Baso % (Auto) 0.4 Neut # (Auto) 7.39 H Lymph # (Auto) 1.10 L [place] # (Auto) 0.75 H Eos # (Auto) 0.08 Baso # (Auto) 0.04 Immature Gran # (Auto) 0.07 PG Care Time/CCT Total # of Minutes Spent Total Time Spent with Patient: Total time spent is greater than 50% in coordination of care (as documented) at patient's floor/unit and/or counseling patient: Coding Diagnoses
[2023-01-03] MEDS ORDERED: bisacodyL 5 MG TABEC PO SCH (20:00)
[2023-01-04] MEDS: IBUPROFEN 600 MG TAB PO PRN ×3 (01:57→11:50)
[2023-01-04] MEDS: oxyCODONE/ACETAMINOPHEN 5mg/325mg TAB PO PRN ×3 (01:57→11:51)
[2023-01-04 06:34] LABS: Hematocrit (blood only) 36.3 % (37.0-47.0); Hemoglobin 12.2 g/dl (12.0-16.0)
--- NOTE | 2023-01-04 08:46 | Obstetrical Progress Note ---
Date of Service January 04, 2023 Assessment & Plan Admission and Anticipated Discharge Date Admission Date: January 02, 2023 Subjective abdomen soft and non tender incision is clean and dry no calf tenderness ambulating well vaginal bleeding scant hgb 12.2 Results & Data Vital Signs (Past 12 Hours) Vital Signs Temp Pulse Resp BP Pulse Ox O2 Del Method 01/03/23 23:17 36.6 C 83 18 139/89 98 Room Air
[2023-01-04] MEDS: SIMETHICONE 80 MG CHEW PO SCH ×2 (08:49→11:50)
[2023-01-04] MEDS: FLUoxetine HCL 20 MG CAP PO SCH (08:49)
[2023-01-04] MEDS: PRENATAL VITAMIN 1 TAB PO SCH (08:50)
[2023-01-04] MEDS: DOCUSATE SODIUM 100 MG CAP PO SCH (08:50)
[2023-01-04] MEDS: FERROUS SULFATE 325 MG TAB PO SCH (08:50)
--- NOTE | 2023-01-04 08:59 | Discharge Summary ---
Date of Service January 04, 2023 Admission HPI Per Admitting Provider Patient is a 32-year-old 2 para 1. She is in good general health. She is on Prozac 20 mg for anxiety and depression. has been well dated with a first trimester ultrasound. Her due date is 01/08/2003. Her first resulted in a section in 2020 at the time of delivery she was fully dilated and pushed for over 3 hours. The head did not descend into the pelvis. She was given a diagnosis of cephalopelvic disproportion. She delivered a male 7 pounds 8 ounces at that time. She is presently being scheduled for repeat section. With a diagnosis of cephalopelvic disproportion. Discharge Data Consultations 01/02/23 05:00 Consult Anesthesiology Stat Procedures Performed Operation Date: 01/02/23 07:30 Actual Procedures p Repeat Section for viable female child at 0820 - Clayton Uriostegui MD [facility] Course (1) Cephalopelvic disproportion due to generally contracted pelvis: Plan Plan is a repeat section. The day of admission the patient was taken to the OR. Spinal anesthesia was administered. A repeat low segment section was performed without any complications and minimal bleeding. Postoperatively the patient did well. Bowel sounds returned within 24 hours. Hemoglobin was stable at 12.2. She remained afebrile throughout her postoperative course. On the second postopera tive day she was ambulating well eating well pain was well controlled. Patient requested discharge. Was discharged with oral pain medications. Instructed to return to the office in 1 week for removal of the nupur.
[2023-01-04] MEDS ORDERED: bisacodyL 10 MG SUPP PR PRN (09:05)
== END 2023-01-04 12:20 | disposition home or self-care (01) | DRG 788 ==
LOC: 4S1 05:28 → EDSTATUS 07:30 → 4E2 17:00